=== PATIENT | male | born 1930 | race African-American/Black ===

== ENCOUNTER 2017-01-20 14:27 | Inpatient (IN) ==
--- NOTE | 2017-01-20 15:14 | Emergency Department Note ---
Disposition Clinical Impression: Dizziness, Cardiac enzymes elevated Hypertension Qualifiers: Hypertension type: essential hypertension Qualified Code(s): I10 - Essential ( primary) hypertension Disposition: Admitted As Inpatient Condition: Fair Referrals: NO,PCP [Non-Partnered Physician] - Forms: ED Satisfaction Letter Time of Disposition: 15:32 Recheck wound or abnormal lab - General Chief Complaint: ED Recheck/Abnormal Lab/Rx Stated Complaint: Elevated trop Time Seen by Provider: 01/20/17 14:29 Source: patient, EMS Limitations: no limitations Nursing Notes Reviewed: Yes Vital Signs Reviewed: Yes - History of Present Illness HPI Narrative: 86-year-old who got dizzy and fell yesterday was seen at the [place] urgent care today and that during the workup was found to have an elevated troponin. Patient denies any chest pain today as had not had any chest pain recently. Has had some dizziness today and his blood pressure has been running high. - Related Data Allergies Allergy/AdvReac Type Severity Reaction Status Date / Time No Known Allergies Allergy Verified 03/26/15 12:25 All systems ED: reviewed and negative except as stated. Constitutional: Denies: fever, chills, weakness, weight change Eyes: Denies: eye pain, eye discharge, vision change ENT ED: Denies: ear pain, throat pain, dental pain, hearing loss, epistaxis, congestion, dysphagia Cardiovascular: Denies: chest pain, palpitations, dyspnea on exertion, edema, syncope Respiratory: Denies: cough, dyspnea, wheezes, hemoptysis, stridor Gastrointestinal: Denies: abdominal pain, nausea, vomiting, diarrhea, constipation, hematemesis, melena, hematochezia Genitourinary: Denies: urgency, dysuria, frequency, hematuria Musculoskeletal: Denies: back pain, neck pain, arthralgia, myalgia Integumentary: Denies: rash, abrasion, lesions Neurological: Reports: other (Dizziness lightheadedness). Denies: headache, weakness, numbness, paresthesias, confusion, abnormal gait, vertigo Psychiatric: Denies: anxiety, depression, suicidal thoughts, homicidal thoughts , auditory hallucinations, visual hallucinations Endocrine: Denies: fatigue Hematological/Lymphatic: Denies: easy bleeding, easy bruising Allergic/Immunologic: Denies: facial swelling, urticaria Past Medical History - Past Medical History Medical history: Reports: coronary artery disease, diabetes, GERD, hypertension Surgical history: Reports: orthopedic, other Psychiatric history: Reports: no psych history - Social History Smoking Status: Former smoker Smokeless Tobacco Status: No Alcohol use: Reports: none Drug use: Reports: none Physical Exam - General Limitations: no limitations General appearance: alert - Head Head exam: atraumatic, normocephalic, normal inspection - Eye Eye exam: Present: normal appearance, PERRL, EOMI - ENT ENT exam: normal exam, normal oropharynx, mucous membranes moist - Neck Neck exam: Present: normal inspection, full ROM, trachea midline - Chest Chest inspection: Present: normal inspection, symmetric chest wall rise - Respiratory Respiratory exam: Present: normal lung sounds bilaterally - Cardiovascular Cardiovascular exam: Present: regular rate, normal rhythm, normal heart sounds - Abdominal Exam Abdominal exam: Present: soft, Non-Tender. Absent: tenderness, distention, guarding, rebound, rigidity - Extremities Exam Extremities exam: Present: normal inspection, full ROM. Absent: tenderness, pedal edema - Expanded Lower Extremity Exam Neurovascular/Tendon exam: Absent: motor deficit, sensory deficit, tendon deficit - Back Exam Back exam: Present: normal inspection, full ROM. Absent: tenderness - Neurological Exam Neurological exam: Present: alert, oriented X3 - Psychiatric Psychiatric exam: Present: normal affect, normal mood - Skin Skin exam: Present: warm, dry, intact, normal color Course - Reevaluation(s) Reevaluation #1: [facility] a [facility] UA recasted was 0.3. Is elevated 0.088 CK was 119 is normal. Calcium is 8.7 sodium 142 potassium is 4.5 chloride 110 carbon dioxide 23 glucose 124 creatinine was 1.04 with a GFR greater than 60 white count was 6 for H&H of 13 and 1 and 39.3 platelets were 112,000 Time: 15:15 - Consultations Consultation #1: Discussed with , would admitted to the [facility] troponins would not heparinize at this time. Time: 15:15 Consultation #2: Discussed with , admit. Time: 15:31 Vital Signs Temperature 97.3 F L 01/20/17 14:29 Pulse Rate 84 01/20/17 14:29 Respiratory Rate 16 01/20/17 14:29 Blood Pressure 156/111 01/20/17 14:29 O2 Sat by Pulse Oximetry 99 01/20/17 14:29 Temperature 97.3 F L 01/20/17 14:29 Pulse Rate 84 01/20/17 14:29 Respiratory Rate 16 01/20/17 14:29 Blood Pressure 156/111 01/20/17 14:29 O2 Sat by Pulse Oximetry 99 01/20/17 14:29 Oxygen Delivery Oxygen Delivery Room Air
[2017-01-20] MEDS ORDERED: Naloxone 0.4 MG/ML INJ IVP PRN (19:14)
[2017-01-20] MEDS ORDERED: Acetaminophen 325 MG TABLET PO PRN (19:14)
[2017-01-20] MEDS ORDERED: *HR* HYDROcodone/Acet 5/325 mg TABLET PO PRN (19:14)
[2017-01-20] MEDS ORDERED: Ondansetron 4 MG/2 ML VIAL IVP PRN (19:14)
[2017-01-20] MEDS ORDERED: *HR* Morphine 2 MG/ML SYRINGE IVP PRN (19:14)
--- NOTE | 2017-01-20 19:45 | Event Note ---
Date of Encounter: 01/20/17 Time of Encounter: 18:30 I saw and examined pt. I have discussed with JACK MACHINE OPERATOR regarding the management plan. Pt has dizziness and near syncope yesterday. Has elevated BP higher than usual. EKG shows new A Fib (onset time unknown, not on EKG in 2009). HR increased ( baseline arround 50, now 90). Pt denies CP or SOB. Will cont home med, increase carvedilol to 12.5mg po bid. 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 Pt has no Hx of TIA/CVA, no Hx of CHF, borderline DM not on med. Will cont aspirin po now, computer terminal operator anticoagulation will follow cardio recommendation. Will order Echo and duplex carotid. Check TSH, Mg in AM.
--- NOTE | 2017-01-20 20:10 | Internal Med History&Physical ---
<Hasmukh Gonzalez - Last Filed: 01/20/17 20:37> Date of Encounter: 01/20/17 Time of Encounter: 18:30 Assessment and Plan (1) Elevated troponin Current visit: Yes Status: Acute Patient presents from the [place] today with elevated troponin of 0.088. Patient states that he has been having hypertension for the past several days and his medication is not helping to control it. Patient denies chest pain or pressure, but does report dizziness and falls without syncope. Patient to be placed on continuous cardiac telemetry with supplemental O2 and continuous SpO2 monitoring , trending troponins x2, EV echocardiogram, bilateral carotid Doppler duplex imaging, and cardiology consult which was placed in the ED. Patient will be placed as falls precautions/up with assist/bed rest with bathroom privileges with assist only due to current SOB and dizziness. Will consider possible nuclear pharm stress test based on echocardiogram results. Patient to be monitored closely. (2) Dizziness Current visit: Yes Status: Acute Patient presents with acute dizziness and history of falls. Patient reports falling two times yesterday without losing consciousness or hitting his head. He states the dizziness lasts for approximately 30 seconds or less. Orthostatic BP and vital signs ordered. Bilateral carotid Doppler duplex imaging ordered to assess for possible blockages. Patient placed as falls precautions/up with assist/bed rest with bathroom privileges with assist only due to dizziness and SOB. (3) Hypertension Current visit: Yes Status: Acute Patient presents with chronic hypertension with current acute HTN readings. Will monitor patient and vital signs. Will continue patient's Coreeg but increase dosing to 12.5 mg BID to decrease current hypertension. Will monitor patient and adjust dosing accordingly. Qualifiers: Hypertension type: essential hypertension Qualified Code(s): I10 - Essential (primary) hypertension (4) SOB (shortness of breath) Current visit: Yes Status: Acute Patient reports some SOB with current hypertension and dizziness. Patient placed on supplemental O2 with titration if SpO2 < 92% and continuous SpO2 monitoring. DuoNebs Q6 ordered PRN. (5) GERD (gastroesophageal reflux disease) Current visit: Yes Status: Chronic Patient presents with history of GERD. Will administer IVP Protonix 40 mg daily. Qualifiers: Esophagitis presence: esophagitis presence not specified Qualified Code(s) : K21.9 - Gastro-esophageal reflux disease without esophagitis (6) Diabetes Current visit: Yes Status: Chronic Patient reports history of diabetes but states that he currently does not take insulin or any oral hyperglycemics. Will take random blood glucose readings to assess for the need for possible low dose correction insulin sliding scale and hypoglycemia protocol. Qualifiers: Diabetes mellitus type: type 2 Diabetes mellitus complication status: without complication Diabetes mellitus medical terminologist insulin use: without jail use Qualified Code(s): E11.9 - Type 2 diabetes mellitus without complications (7) DVT prophylaxis Current visit: Yes Status: Acute Patient to be placed on DVT prophylaxis due to current admission protocol and bed rest status. Heparin 5,000 units SQ Q8 ordered. Internal Medicine - H&P: HPI Chief complaint: Dizzy spells, HTN Admitted From: Emergency Dept Plans for Post Hospital Care: Home History of present illness: Mr. Drew is a 86 year old male who presents from the ED with chief complaint of dizziness and hypertension. Patient reports he fell two times yesterday morning without warning but denies losing consciousness. He states his dizzy spells last approximately 30 seconds or less. Patient was seen at the [place] today and his labs showed an elevated troponin. Patient denies any chest pain or pressure but does report some SOB. He states that his BP has been running high for the past several days. Urinalysis at the [place] was negative, platelets were 112 ,000, Hgb was 13 and Hct 39.3, with troponin at 0.088. Patient has a medical history of coronary artery disease, diabetes, GERD, hypertension, and diverticulosis. Patient reports previous heart catheterizations with placement of 3 stents. Patient currently sees Dr. Diaz and reports last appointment was a few months ago. Patient is at moderate risk for cardiac event based on history and current symptoms and will be placed as inpatient with orders for continuous cardiac telemetry, supplemental O2 titration if SPO2 less than 92%, continuous SPO2 monitoring, troponins to be trended 2, orthostatic BP and vital signs, orders for echocardiogram and bilateral carotid duplex imaging, and safety precautions to include falls precautions/up with assist/bed rest with bathroom privileges with assist only. Cardiology consult ordered and placed in the ED. Patient to be monitored closely for signs of increasing cardiac and/or respiratory distress. Time spent with patient > 40 minutes. Past Med Surg Social Fam HX - Past Medical History Source: patient Medical history: coronary artery disease, diabetes, GERD, hypertension, other ( Diverticulosis) Psychiatric history: no psych history - Past Surgical History Surgical History: angioplasty/stent (x3), cataract (Bilateral), orthopedic, other (Bilateral knee replacements, neck/spine surgery) - Social History Smoking Status: Former smoker Smokeless Tobacco Status: No Alcohol use: none Drug use: none Occupational status: previously employed Current living situation: Home, With Family Activity Level: Independent ambulation, Very active Recent Out of Country Travel Within the Last 8 Weeks: No Exposure or Possible Exposure to Illness During Travel: No - Family History Mother Living Status: Hx Family Cardiac Disorders: No Hx Family Respiratory Disorders: No Hx Family Cancer: Yes Hx Family GI Disorders: No Hx Family Genitourinary Disorders: No Hx Family Endocrine Disorder: No Hx Family Musculoskeletal Disorders: No Hx Family Neuromuscular Disorders: No Hx Family Neurologic Disorders: No Hx Family HEENT Disorders: No Hx Family Autoimmune Disorders: No Hx Family Reproductive Disorders: No Hx Family Psychosocial Disorders: No Hx Family Medical Disorders: No Internal Medicine - H&P: Meds Alfuzosin HCl [Uroxatral] 10 mg PO DAILY 01/20/17 [History] Allopurinol [Zyloprim 300 MG] 300 mg PO DAILY 01/20/17 [History] Aspirin 81 mg PO DAILY 01/20/17 [History] Carvedilol [Coreg] 6.25 mg PO BIDWM 01/20/17 [History] Ferrous Sulfate 325 mg PO DAILY 01/20/17 [History] Finasteride [Proscar] 5 mg PO DAILY 01/20/17 [History] Gabapentin [Neurontin] 300 mg PO HS 01/20/17 [History] Lisinopril [Zestril] 20 mg PO BID 01/20/17 [History] Multivitamin [Multi-Day Vitamins] 1 each PO DAILY 01/20/17 [History] Simvastatin [Zocor] 20 mg PO HS 01/20/17 [History] Allergies No Known Allergies Allergy (Verified 03/26/15 12:25) All Systems PM: A 10-system review of systems was performed and is negative for pertinent findings except as documented above in the HPI. - Constitutional Constitutional: as per HPI, falls, no chills, no fever(s), no night sweats - EENT Eyes: no change in vision, no discharge, no pain, no photophobia Ears: no ear discharge, no ear pain, no tinnitus Nose, mouth and throat: no dysphagia, no nasal discharge, no neck pain, no sore throat - Breasts Breasts: as per HPI - Cardiovascular Cardiovascular ROS IM: as per HPI, dyspnea - Respiratory Respiratory: as per HPI, dyspnea, no cough, no wheezing, no excessive phlegm production - Gastrointestinal Gastrointestinal: no abdominal pain, no diarrhea, no hematemesis, no hematochezia, no melena, no nausea, no vomiting - Genitourinary Genitourinary ROS male: as per HPI - Musculoskeletal Musculoskeletal ROS IM: no numbness, no tingling - Integumentary Integumentary IM: no rash, no unusual bruising - Neurological Neurological ROS: as per HPI, dizziness, frequent falls, no confusion, no convulsions, no focal weakness, no numbness, no tingling, no tremor(s) - Psychiatric Psychiatric: as per HPI - Endocrine Endocrine IM: as per HPI - Hematologic/Lymphatic Hematologic/Lymphatic: no easy bruising - Allergic/Immunologic Allergic/Immunologic: as per HPI - Constitutional Vitals: Temp Pulse Resp BP Pulse Ox 97.7 F 92 18 166/101 95 01/20/17 18:58 01/20/17 18:58 01/20/17 18:58 01/20/17 18:58 01/20/17 18:58 General appearance: Present: cooperative, A&O X 3, pleasant, no acute distress, obese, answers questions appropriately - Head Head exam: Present: atraumatic, normocephalic - Eye Eye exam: Present: PERRL, conjuntiva pink, sclera anicteric Pupils: Present: PERRL - ENT ENT exam: Present: normal exam, normal external ear exam - Neck Neck exam general surgery: Present: supple, trachea midline. Absent: lymphadenopathy - Respiratory Respiratory exam: Present: CTAB. Absent: accessory muscle use, rales, rhonchi, wheezes - Cardiovascular Cardiovascular exam: Present: RRR, +S1, +S2. Absent: diastolic murmur, gallop, rubs, systolic murmur - GI/Abdominal GI/Abdominal exam: Present: normal bowel sounds, soft, no peritoneal signs. Absent: distended, tenderness - Rectal Rectal exam: Present: deferred - Additional comments: exam deferred. - Extremities Exam Extremities exam: Present: warm, radial pulses palpable and symetrical. Absent : calf tenderness, cyanotic, pedal edema - Back Exam Back exam: Present: normal inspection - Neurological Exam Neurological exam: Present: CN II-XII intact, oriented X3, no focal deficits. Absent: pronater drift, facial droop, speech deficit - Psychiatric Psychiatric exam: Present: normal affect, normal mood - Skin Skin exam: Present: dry, intact <Nelson Saunders - Last Filed: 01/21/17 07:10> Date of Encounter: 01/21/17 Internal Medicine - H&P: HPI History of present illness: Mr. Drew is a 86 year old male All Systems PM: A 10-system review of systems was performed and is negative for pertinent findings except as documented above in the HPI. - Constitutional Vitals: Temp Pulse Resp BP Pulse Ox 97.8 F 85 18 136/84 95 01/21/17 03:12 01/21/17 03:12 01/21/17 03:12 01/21/17 03:20 01/21/17 03:12 Internal Med - H&P Results - Labs CBC & Chem 7: 01/20/17 19:58 01/20/17 19:58 Labs: Short CBC 01/20/17 Range/Units 19:58 WBC 7.6 (4.3-11.1) K/mcL Hgb 13.5 (12.9-16.9) g/dL Hct 40.4 (37.5-50.1) % Plt Count 100 L (140-400) K/mcL Neutrophils # 4.0 (1.6-8.9) K/mcL BMP 01/20/17 19:58 Sodium 139 Potassium 4.2 Chloride 108 Carbon Dioxide 22 BUN 13 Creatinine 1.00 Glucose 162 H Calcium 9.3 Cardiac Enzymes 01/20/17 01/21/17 Range/Units 22:41 04:15 Troponin I 0.12 H* 0.14 H* (0-0.03) ng/mL - Attending Attestation I saw and examined pt, discussed with CORRESPONDENCE CLERK regarding management. Agree with the documentation.
[2017-01-20] MEDS ORDERED: Ipratropium/Albuterol Neb 3 ML IH PRN (20:36)
[2017-01-20] MEDS: Gabapentin 300 MG CAPSULE PO SCH (20:45)
[2017-01-20] MEDS: Lisinopril 20 MG TABLET PO SCH (20:45)
[2017-01-20] MEDS: *HR* Heparin 5,000 UNIT/ML VIAL SQ SCH (20:45)
[2017-01-20 20:51] LABS: Basophils % 0.8 %; Hematocrit 40.4 % (37.5-50.1); Red Cell Distribution Width 14.5 % (11.5-14.5)
[2017-01-20 20:52] LABS: Basophils # 0.1 K/mcL (0.0-0.2); Eosinophils # 0.2 K/mcL (0.0-0.6); Hemoglobin 13.5 g/dL (12.9-16.9); Immature Granulocytes % 0.3 % (0-4); Immature Platelets 13.7 % (1.1-6.1); Lymphocytes # 2.6 K/mcL (0.6-4.6); Lymphocytes % 34.1 %; Mean Corpuscular HGB Conc 33.4 g/dL (31.6-35.5); Mean Corpuscular Hemoglobin 32.1 pg (28.0-33.3); Mean Corpuscular Volume 96.2 fL (83.0-100.0); Mean Platelet Volume 13.6 fL (9.4-12.4); Monocytes # 0.7 K/mcL (0.0-1.3); Monocytes % 8.7 %; Platelet Count 100 K/mcL (140-400); Segmented Neutrophils % 53.1 %
[2017-01-20 20:58] LABS: INR 1.1; Prothrombin Time 11.4 Seconds (9.4-12.1)
[2017-01-20 21:01] LABS: Activated Partial Thrombo Time 27.1 Seconds (26.0-36.0)
[2017-01-20 21:03] LABS: BUN/Creatinine Ratio 13 (6-26); Blood Urea Nitrogen 13 mg/dL (8-26); Calcium 9.3 mg/dL (8.6-10.8); Carbon Dioxide 22 mEq/L (19-29); Chloride 108 mEq/L (98-109); Glucose 162 mg/dL (70-99); Osmolality,Calculated 292 (280-300); Potassium 4.2 mEq/L (3.5-4.5); Sodium 139 mEq/L (136-145); eGFR For African Americans > 60 (> 60); eGFR For Non-African Americans > 60 (> 60)
[2017-01-20 21:05] LABS: Chol/HDL Ratio 2.2 (0-4.9); Magnesium 1.4 mg/dL (1.6-2.6)
[2017-01-20 21:07] LABS: Platelet Estimate Decreased (Normal)
[2017-01-20 21:08] LABS: Reactive Lymphocytes Present (Not Present)
[2017-01-20] MEDS ORDERED: Magnesium Sulfate 2 GM in D5% in Water 100 ML IVPB ONE (23:56)
[2017-01-21] MEDS: *HR* Heparin 5,000 UNIT/ML VIAL SQ SCH ×2 (05:20→17:11)
[2017-01-21] MEDS: Aspirin 81 MG TAB.CHEW PO SCH (09:05)
[2017-01-21] MEDS: Lisinopril 20 MG TABLET PO SCH ×2 (09:05→20:36)
[2017-01-21] MEDS: Finasteride 5 MG TABLET PO SCH (09:05)
[2017-01-21] MEDS: Multivit/Ca/Min/Fe/FA 1 TAB TABLET PO SCH (09:05)
[2017-01-21] MEDS: Pantoprazole 40 MG VIAL IVP SCH (09:11)
--- NOTE | 2017-01-21 11:31 | Cardiology Consult Note ---
Date of Encounter: 01/21/17 Time of Encounter: 10:30 Assessment and Plan (1) Fall Current Visit: Yes Status: Acute Per cardiology: -Patient fell at home during dizzy episode. -Patient had history of dizziness, however states he has never fallen previously because of dizziness -Patient reports 3 falls in the past 6 months, unrelated to dizziness. -Management per primary service. Qualifiers: Encounter type: initial encounter Qualified Code(s): W19.XXXA - Unspecified fall, initial encounter (2) Cardiomyopathy Current Visit: Yes Status: Acute Per cardiology: -Echo 01/20/17 with LVEF 25-30%, global LV hypokinesis, mild concentric left ventricular hypertrophy, dilated RV with moderate RV hypokinesis, severely dilated left atrium, severely dilated right atrium, mild AR, mild MR, mild pulmonary hypertension, all hartman were hypokinetic. -Echo 2013 with LVEF 60%, mild As, mild AR, mild MR, mild diastolic dysfunction. -Known history of CAD. -On beta joseph and julia inhibitor. -Euvolemic on exam. -Will need LHC. Can be set up as outpatient. Qualifiers: Cardiomyopathy type: unspecified Qualified Code(s): I42.9 - Cardiomyopathy , unspecified (3) Atrial fibrillation Current Visit: Yes Status: Acute Per cardiology: -No previous history of atrial fibrillation. -Per review of telemetry, average HR 79. Intermittent atrial fibrillation with sinus rhythm. -On asa. -Chads 2vasc score 5 (age, HTN, vascular disease, DM). ON asa. Patient with frequent falls. Not a good candidate for anticoagulation. Patient and family aware of increased risk of stroke. -On beta joseph. Hr controlled. -Will re-assess anticoagulation in outpatient setting due to frequent falls and need for upcoming LHC. Qualifiers: Atrial fibrillation type: unspecified Qualified Code(s): I48.91 - Unspecified atrial fibrillation (4) CAD (coronary artery disease) Current Visit: Yes Status: Acute Per cardiology: -Known CAD with Last cath 2009 with 2 KIESHA to RCA. -Echo as above. -ECG with no ischemic changes. -Denies chest pain. Unable to remember his symptoms prior to needing stenting before. -Denies shortness of breath or fatigue. -Will need LHC.Can be set up as outpatient. Qualifiers: Coronary Disease-Associated Artery/Lesion type: [place] artery [place] vs. transplanted heart: [place] heart Associated angina: without angina Qualified Code(s): I25.10 - Atherosclerotic heart disease of [place] coronary artery without angina pectoris (5) Elevated troponin Current Visit: Yes Status: Acute Per cardiology: -[facility] noted to be 0.14, 0.19. -Denies chest pain. -ECG with no ischemic changes. -Echo as above with new cardiomyopathy noted. -Will need C. Discussion w patient/family: The assessment and plan as outlined above was discussed with the patient and/or family members who expressed understanding and agreement. All questions were answered. Thank you for involving us in the care of your patient. Please call with any questions. Discussed and reviewed with . History of Present Illness Consult date: 01/20/17 Requesting physician: Scar English Consult reason: elevated troponin Chief complaint: fall History of present illness: Mr. Drew is a 86 year old male with a relevant past medical history of CAD s/p 3 stents, DM, HTN, hyperlipidemia. Patient states he was at home in his garage cooking dinner when he became extremely dizzy and fell. Patient reports he has had dizzy episodes before and is on antivert for dizziness, however patient states he has never fallen previously due to dizziness. Patient reports in jay jay past 6 months he has fallen 3 times due to mechanical issues. Patient denies chest pain, shortness of breath, or increased fatigue. Past Med Surg Social Fam HX - Past Medical History Attestation: Yes The following information was validated with the patient. Source: patient, old records reviewed, obtained from family Medical history: coronary artery disease, diabetes, GERD, hypertension, other ( Diverticulosis) Psychiatric history: no psych history - Past Surgical History Surgical History: angioplasty/stent (x3), cataract (Bilateral), orthopedic, other (Bilateral knee replacements, neck/spine surgery) - Social History Smoking Status: Former smoker Smokeless Tobacco Status: No Alcohol use: none Drug use: none - Family History Mother Living Status: Hx Family Cardiac Disorders: No Hx Family Respiratory Disorders: No Hx Family Cancer: Yes Hx Family GI Disorders: No Hx Family Genitourinary Disorders: No Hx Family Endocrine Disorder: No Hx Family Musculoskeletal Disorders: No Hx Family Neuromuscular Disorders: No Hx Family Neurologic Disorders: No Hx Family HEENT Disorders: No Hx Family Autoimmune Disorders: No Hx Family Reproductive Disorders: No Hx Family Psychosocial Disorders: No Hx Family Medical Disorders: No Medications and Allergies Alfuzosin HCl [Uroxatral] 10 mg PO DAILY 01/20/17 [History] Allopurinol [Zyloprim 300 MG] 300 mg PO DAILY 01/20/17 [History] Aspirin 81 mg PO DAILY 01/20/17 [History] Carvedilol [Coreg] 6.25 mg PO BIDWM 01/20/17 [History] Ferrous Sulfate 325 mg PO DAILY 01/20/17 [History] Finasteride [Proscar] 5 mg PO DAILY 01/20/17 [History] Gabapentin [Neurontin] 300 mg PO HS 01/20/17 [History] Lisinopril [Zestril] 20 mg PO BID 01/20/17 [History] Multivitamin [Multi-Day Vitamins] 1 each PO DAILY 01/20/17 [History] Simvastatin [Zocor] 20 mg PO HS 01/20/17 [History] Allergies No Known Allergies Allergy (Verified 03/26/15 12:25) All Systems Review: A 10-system review of systems was performed and is negative for pertinent findings except as documented above in the HPI. - Constitutional Constitutional: frequent falls - Cardiovascular Cardiovascular: as per HPI - Neurological Neurological: dizziness Physical Examination Vital Signs, Last 4 Hours Temp Pulse Resp BP Pulse Ox 01/21/17 11:10 97.7 F 59 16 136/88 97 General: Conversant, No Apparent Distress HEENT: Atraumatic, Normocephaly, Mucus Membranes Moist Neck: No JVD, Normal carotid pulses Cardiac: Other (Irregularly, irregular. ) Lungs: Normal Breath Sounds, No Wheeze, Rales, Rhonchi Neuro: Alert and responsive, No focal deficits noted Abdomen: Soft, Non-Tender Skin: No rashes noted on visualized skin Musculoskeletal: No Chest Wall Tenderness Extremities: No Clubbing, No Cyanosis, No Edema, Normal Pulses Results 01/20/17 19:58 01/20/17 19:58 Lab Results Active Medications Acetaminophen (Tylenol) 650 mg PO Q6HR PRN PRN Reason: Mild Pain (1-3) Stop: 07/22/17 19:15 Hydrocodone Bitart/Acetaminophen ([place] 5-325 Mg) 1 tab PO Q4HR PRN PRN Reason: Moderate Pain (4-6) Stop: 07/22/17 19:15 Albuterol/Ipratropium (Duoneb) 3 ml IH [id number] PRN; Protocol PRN Reason: Shortness Of Breath/Wheezing Stop: 07/22/17 20:37 Aspirin (Aspirin) 81 mg PO DAILY [facility] Stop: 07/23/17 09:01 Last Admin: 01/21/17 09:05 Dose: 81 mg Carvedilol (Coreg) 12.5 mg PO BIDWM NEETU PRN Reason: Protocol Stop: 07/23/17 08:01 Last Admin: 01/21/17 09:05 Dose: 12.5 mg Ferrous Sulfate (Ferrous Sulfate) 325 mg PO DAILY [facility] Stop: 07/23/17 09:01 Last Admin: 01/21/17 09:05 Dose: 325 mg Finasteride (Proscar) 5 mg PO DAILY [facility] PRN Reason: Protocol Stop: 07/23/17 09:01 Last Admin: 01/21/17 09:05 Dose: 5 mg Gabapentin (Neurontin) 300 mg PO HS [facility] Stop: 07/22/17 21:01 Last Admin: 01/20/17 20:45 Dose: 300 mg Heparin Sodium (Porcine) (Heparin) 5,000 unit SQ Q12HCO [facility] Stop: 07/22/17 19:16 Last Admin: 01/21/17 05:20 Dose: 5,000 unit Lisinopril (Zestril) 20 mg PO BID [facility] PRN Reason: Protocol Stop: 07/22/17 21:01 Last Admin: 01/21/17 09:05 Dose: 20 mg Morphine Sulfate (Morphine Sulfate) 2 mg IVP Q4HR PRN PRN Reason: Severe Pain (7-10) Stop: 07/22/17 19:15 Multivitamins/Calcium (Thera M Plus) 1 tab PO DAILY [facility] Stop: 07/23/17 09:01 Last Admin: 01/21/17 09:05 Dose: 1 tab Naloxone HCl (Narcan) 0.4 mg IVP Q2MIN PRN PRN Reason: Opioid Reversal Stop: 07/22/17 19:15 Ondansetron HCl (Zofran) 4 mg IVP Q8HR PRN PRN Reason: Nausea And Vomiting Stop: 07/22/17 19:15 Pantoprazole Sodium (Protonix) 40 mg IVP DAILY [facility] Stop: 07/23/17 09:01 Last Admin: 01/21/17 09:11 Dose: 40 mg Simvastatin (Zocor) 20 mg PO HS NEETU PRN Reason: Protocol Stop: 07/22/17 21:01 Last Admin: 01/20/17 20:45 Dose: 20 mg Laboratory Tests 01/20/17 01/20/17 01/20/17 19:58 19:58 19:58 Hgb 13.5 Potassium 4.2 Creatinine 1.00 Magnesium 1.4 L Troponin I Triglycerides 106 Cholesterol 130 LDL Cholesterol, Calc 50 HDL Cholesterol 59 TSH 01/20/17 01/21/17 01/21/17 22:41 04:15 04:15 Hgb Potassium Creatinine Magnesium Troponin I 0.12 H* 0.14 H* Triglycerides Cholesterol LDL Cholesterol, Calc HDL Cholesterol TSH 2.083 - Imaging and Cardiology Stress Test: report reviewed Echo: report reviewed - EKG Interpretation EKG results cardiology: personally reviewed ([facility], [facility] 59.), other (Telemetry reviewed with average HR 79, sinus rhythm with intermittent periods of atrial fibrillation. Longest pause 1.7 seconds. PVCs, couplets, 1 5 beat run of non-sustained ventricular tachycardia.) Consult Discharge Plan - Plan Referrals: [facility] [Primary Care Provider] -
--- NOTE | 2017-01-21 17:27 | Internal Med Progress Note ---
Date of Encounter: 01/21/17 Time of Encounter: 13:30 - Assessment and plan (1) Dizziness Current Visit: Yes Status: Acute Assessment and plan: persistent dizziness and shortness of breath on exertion. (2) Cardiomyopathy Current Visit: Yes Status: Acute Assessment and plan: New diagnosis systolic heart failure, not in exacerbation. Echocardiogram revealed severe LV systolic dysfunction, LVEF 25-30%, global LV hypokinesis, mild concentric LVH, dilated right ventricle with moderate RV hypokinesis, severely dilated left atrium, severely dilated right atrium. Appreciate cardiology input. Patient and at bedside, he agreed to stay and undergo left heart catheterization on Monday. Continue aspirin, lisinopril and coreg. Qualifiers: Cardiomyopathy type: unspecified Qualified Code(s): I42.9 - Cardiomyopathy , unspecified (3) Atrial fibrillation Current Visit: Yes Status: Acute Assessment and plan: new onset afib. hr is adequate. continue coreg. Qualifiers: Atrial fibrillation type: unspecified Qualified Code(s): I48.91 - Unspecified atrial fibrillation (4) CAD (coronary artery disease) Current Visit: Yes Status: Acute Qualifiers: Coronary Disease-Associated Artery/Lesion type: [place] artery [place] vs. transplanted heart: [place] heart Associated angina: without angina Qualified Code(s): I25.10 - Atherosclerotic heart disease of [place] coronary artery without angina pectoris (5) Diabetes Current Visit: Yes Status: Chronic Assessment and plan: iss. diabetic diet. 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 continue lisinopril Qualifiers: Hypertension type: essential hypertension Qualified Code(s): I10 - Essential (primary) hypertension - Subjective Interval history: Patient reports dizziness and shortness of breath on exertion. - Constitutional Vitals: Temp Pulse Resp BP Pulse Ox 97.6 F 89 16 146/98 96 01/21/17 15:05 01/21/17 15:05 01/21/17 15:05 01/21/17 15:05 01/21/17 15:05 General appearance: Present: cooperative, A&O X 3, pleasant, no acute distress, obese, answers questions appropriately - Respiratory Respiratory exam: Present: CTAB - Cardiovascular Cardiovascular exam: Present: RRR - GI/Abdominal GI/Abdominal exam: Present: normal bowel sounds, soft. Absent: distended, tenderness - Extremities Exam Extremities exam: Absent: pedal edema - Back Exam Back exam: Absent: CVA tenderness (L), CVA tenderness (R) - Neurological Exam Neurological exam: Present: alert, oriented X3, no focal deficits, strengths equal and symetr throughout. Absent: facial droop, speech deficit - Skin Skin exam: Absent: rash Internal Medicine: Result - Labs CBC & Chem 7: 01/20/17 19:58 01/20/17 19:58 Labs: Short CBC 01/20/17 Range/Units 19:58 WBC 7.6 (4.3-11.1) K/mcL Hgb 13.5 (12.9-16.9) g/dL Hct 40.4 (37.5-50.1) % Plt Count 100 L (140-400) K/mcL Neutrophils # 4.0 (1.6-8.9) K/mcL BMP 01/20/17 19:58 Sodium 139 Potassium 4.2 Chloride 108 Carbon Dioxide 22 BUN 13 Creatinine 1.00 Glucose 162 H Calcium 9.3 Cardiac Enzymes 01/20/17 01/21/17 Range/Units 22:41 04:15 Troponin I 0.12 H* 0.14 H* (0-0.03) ng/mL - ABG Interpretation ABG results: PT/INR, D-dimer PT 11.4 Seconds (9.4-12.1) 01/20/17 19:58 Consult Discharge Plan - Plan [facility]errals: [facility] [Primary Care Provider] -
[2017-01-21] MEDS: Gabapentin 300 MG CAPSULE PO SCH (20:36)
[2017-01-22 05:02] LABS: Basophils # 0.1 K/mcL (0.0-0.2); Basophils % 0.7 %; Eosinophils # 0.2 K/mcL (0.0-0.6); Eosinophils % 2.6 %; Hematocrit 37.2 % (37.5-50.1); Hemoglobin 12.4 g/dL (12.9-16.9); Immature Granulocytes % 0.3 % (0-4); Lymphocytes % 26.1 %; Mean Corpuscular HGB Conc 33.3 g/dL (31.6-35.5); Mean Corpuscular Hemoglobin 32.9 pg (28.0-33.3); Mean Corpuscular Volume 98.7 fL (83.0-100.0); Mean Platelet Volume 11.4 fL (9.4-12.4); Monocytes # 0.9 K/mcL (0.0-1.3); Monocytes % 11.9 %; Neutrophils # 4.4 K/mcL (1.6-8.9); Platelet Count 112 K/mcL (140-400); Red Blood Count 3.77 M/mcL (4.19-5.50); Red Cell Distribution Width 14.5 % (11.5-14.5); Segmented Neutrophils % 58.4 %
[2017-01-22 05:31] LABS: BUN/Creatinine Ratio 17 (6-26); Blood Urea Nitrogen 17 mg/dL (8-26); Calcium 9.4 mg/dL (8.6-10.8); Carbon Dioxide 23 mEq/L (19-29); Chloride 109 mEq/L (98-109); Glucose 110 mg/dL (70-99); Magnesium 2.2 mg/dL (1.6-2.6); Osmolality,Calculated 292 (280-300); Potassium 4.2 mEq/L (3.5-4.5); Sodium 140 mEq/L (136-145); eGFR For African Americans > 60 (> 60); eGFR For Non-African Americans > 60 (> 60)
[2017-01-22] MEDS: *HR* Heparin 5,000 UNIT/ML VIAL SQ SCH ×2 (06:03→17:20)
[2017-01-22] MEDS: Aspirin 81 MG TAB.CHEW PO SCH (08:08)
[2017-01-22] MEDS: Lisinopril 20 MG TABLET PO SCH ×2 (08:08→20:20)
[2017-01-22] MEDS: Finasteride 5 MG TABLET PO SCH (08:08)
[2017-01-22] MEDS: Multivit/Ca/Min/Fe/FA 1 TAB TABLET PO SCH (08:08)
[2017-01-22] MEDS: Pantoprazole 40 MG VIAL IVP SCH (08:09)
--- NOTE | 2017-01-22 12:05 | Cardiology Progress Note ---
Date of Encounter: 01/22/17 Time of Encounter: 10:30 Assessment and Plan (1) Fall Current Visit: Yes Status: Acute Per cardiology: -Patient fell at home during dizzy episode. -Patient had history of dizziness, however states he has never fallen previously because of dizziness -Patient reports 3 falls in the past 6 months, unrelated to dizziness. -Management per primary service. Qualifiers: Encounter type: initial encounter Qualified Code(s): W19.XXXA - Unspecified fall, initial encounter (2) Cardiomyopathy Current Visit: Yes Status: Acute Per cardiology: -Echo 01/20/17 with LVEF 25-30%, global LV hypokinesis, mild concentric left ventricular hypertrophy, dilated RV with moderate RV hypokinesis, severely dilated left atrium, severely dilated right atrium, mild AR, mild MR, mild pulmonary hypertension, all hartman were hypokinetic. -Echo 2013 with LVEF 60%, mild As, mild AR, mild MR, mild diastolic dysfunction. -Known history of CAD. -On beta joseph and julia inhibitor. -Euvolemic on exam. -PLan for LHC tomorrow. -NPO after midnight. Qualifiers: Cardiomyopathy type: unspecified Qualified Code(s): I42.9 - Cardiomyopathy , unspecified (3) Atrial fibrillation Current Visit: Yes Status: Acute Per cardiology: -No previous history of atrial fibrillation. -Per review of telemetry, average HR 79. Intermittent atrial fibrillation with sinus rhythm. -On asa. -Chads 2vasc score 5 (age, HTN, vascular disease, DM). ON asa. Patient with frequent falls. Not a good candidate for anticoagulation. Patient and family aware of increased risk of stroke and agree with no anticoagulation at this time. -On beta joseph. Hr controlled. -Will re-assess anticoagulation in outpatient setting due to frequent falls and need for upcoming LHC. Qualifiers: Atrial fibrillation type: unspecified Qualified Code(s): I48.91 - Unspecified atrial fibrillation (4) CAD (coronary artery disease) Current Visit: Yes Status: Acute Per cardiology: -Known CAD with Last cath 2009 with 2 KIESHA to RCA. -Echo as above. -ECG with no ischemic changes. -Denies chest pain. Unable to remember his symptoms prior to needing stenting before. -Denies shortness of breath or fatigue. -PLan for LHC tomorrow. Qualifiers: Coronary Disease-Associated Artery/Lesion type: [place] artery [place] vs. transplanted heart: [place] heart Associated angina: without angina Qualified Code(s): I25.10 - Atherosclerotic heart disease of [place] coronary artery without angina pectoris (5) Elevated troponin Current Visit: Yes Status: Acute Per cardiology: -[facility] noted to be 0.14, 0.19. -Denies chest pain. -ECG with no ischemic changes. -Echo as above with new cardiomyopathy noted. -PLan for [facility] tomorrow. Discussion w patient/family: The assessment and plan as outlined above was discussed with the patient and/or family members who expressed understanding and agreement. All questions were answered. Thank you for involving us in the care of your patient. Please call with any questions. Discussed and reviewed with . Subjective Principal diagnosis: fall Interval history: Patient admitted after fall and noted to have elevated troponin. EF noted to be reduced. New atrial fibrillation noted. Patient states he feels ok today. Objective Vital Signs, Last 4 Hours Temp Pulse Resp BP Pulse Ox 01/22/17 11:41 97.5 F L 84 15 135/79 97 01/22/17 09:38 97.7 F 73 15 133/88 96 01/22/17 08:25 164/104 01/22/17 08:08 97.5 F L 68 14 180/128 95 General: Conversant, No Apparent Distress HEENT: Atraumatic, Normocephaly, Mucus Membranes Moist Neck: No JVD, Normal carotid pulses Cardiac: Reg Rate and Rhythm, Normal S1 and S2, No Murmur Lungs: Normal Breath Sounds, No Wheeze, Rales, Rhonchi Neuro: Alert and responsive, No focal deficits noted Abdomen: Soft, Non-Tender Skin: No rashes noted on visualized skin Musculoskeletal: No Chest Wall Tenderness Extremities: No Clubbing, No Cyanosis, No Edema, Normal Pulses Results 01/22/17 04:35 01/22/17 04:35 Lab Results Active Medications Acetaminophen (Tylenol) 650 mg PO Q6HR PRN PRN Reason: Mild Pain (1-3) Stop: 07/22/17 19:15 Hydrocodone Bitart/Acetaminophen ([place] 5-325 Mg) 1 tab PO Q4HR PRN PRN Reason: Moderate Pain (4-6) Stop: 07/22/17 19:15 Albuterol/Ipratropium (Duoneb) 3 ml IH [id number] PRN; Protocol PRN Reason: Shortness Of Breath/Wheezing Stop: 07/22/17 20:37 Aspirin (Aspirin) 81 mg PO DAILY [facility] Stop: 07/23/17 09:01 Last Admin: 01/22/17 08:08 Dose: 81 mg Carvedilol (Coreg) 12.5 mg PO BIDWM NEETU PRN Reason: Protocol Stop: 07/23/17 08:01 Last Admin: 01/22/17 08:08 Dose: 12.5 mg Ferrous Sulfate (Ferrous Sulfate) 325 mg PO DAILY [facility] Stop: 07/23/17 09:01 Last Admin: 01/22/17 08:08 Dose: 325 mg Finasteride (Proscar) 5 mg PO DAILY [facility] PRN Reason: Protocol Stop: 07/23/17 09:01 Last Admin: 01/22/17 08:08 Dose: 5 mg Gabapentin (Neurontin) 300 mg PO HS [facility] Stop: 07/22/17 21:01 Last Admin: 01/21/17 20:36 Dose: 300 mg Heparin Sodium (Porcine) (Heparin) 5,000 unit SQ Q12HCO [facility] Stop: 07/22/17 19:16 Last Admin: 01/22/17 06:03 Dose: 5,000 unit Lisinopril (Zestril) 20 mg PO BID [facility]ETU PRN Reason: Protocol Stop: 07/22/17 21:01 Last Admin: 01/22/17 08:08 Dose: 20 mg Morphine Sulfate (Morphine Sulfate) 2 mg IVP Q4HR PRN PRN Reason: Severe Pain (7-10) Stop: 07/22/17 19:15 Multivitamins/Calcium (Thera M Plus) 1 tab PO DAILY [facility] Stop: 07/23/17 09:01 Last Admin: 01/22/17 08:08 Dose: 1 tab Naloxone HCl (Narcan) 0.4 mg IVP Q2MIN PRN PRN Reason: Opioid Reversal Stop: 07/22/17 19:15 Ondansetron HCl (Zofran) 4 mg IVP Q8HR PRN PRN Reason: Nausea And Vomiting Stop: 07/22/17 19:15 Pantoprazole Sodium (Protonix) 40 mg IVP DAILY [facility] Stop: 07/23/17 09:01 Last Admin: 01/22/17 08:09 Dose: 40 mg Simvastatin (Zocor) 20 mg PO HS [facility]ETU PRN Reason: Protocol Stop: 07/22/17 21:01 Last Admin: 01/21/17 20:36 Dose: 20 mg Laboratory Tests 01/20/17 01/21/17 01/21/17 22:41 04:15 04:15 Hgb Potassium Creatinine Magnesium Troponin I 0.12 H* 0.14 H* TSH 2.083 01/22/17 01/22/17 04:35 04:35 Hgb 12.4 L Potassium 4.2 Creatinine 0.98 Magnesium 2.2 Troponin I TSH - Imaging and Cardiology Chest Xray: report reviewed Echo: report reviewed - EKG Interpretation EKG results cardiology: other (Telemetry reviewed with average HR 72, atrial fibrillation. Longest pause 2 seconds. PVCs, couplets, and one 4 beat run of non -sustained ventricular tachycardia noted.) Consult Discharge Plan - Plan [facility]errals: [facility] [Primary Care Provider] -
--- NOTE | 2017-01-22 17:46 | Internal Med Progress Note ---
Date of Encounter: 01/22/17 Time of Encounter: 12:45 - Assessment and plan (1) Dizziness Current Visit: Yes Status: Acute Assessment and plan: PAtient presented with dizziness and shortness of breath on exertion. improved. (2) Cardiomyopathy Current Visit: Yes Status: Acute Assessment and plan: New diagnosis systolic heart failure, not in exacerbation. Echocardiogram revealed severe LV systolic dysfunction, LVEF 25-30%, global LV hypokinesis, mild concentric LVH, dilated right ventricle with moderate RV hypokinesis, severely dilated left atrium, severely dilated right atrium. Appreciate cardiology input. PLAN for left heart catheterization tomorrow. Continue aspirin, lisinopril and coreg. Qualifiers: Cardiomyopathy type: unspecified Qualified Code(s): I42.9 - Cardiomyopathy , unspecified (3) Atrial fibrillation Current Visit: Yes Status: Acute Assessment and plan: new onset afib. hr is adequate. continue coreg. Qualifiers: Atrial fibrillation type: unspecified Qualified Code(s): I48.91 - Unspecified atrial fibrillation (4) CAD (coronary artery disease) Current Visit: Yes Status: Acute Qualifiers: Coronary Disease-Associated Artery/Lesion type: [place] artery [place] vs. transplanted heart: [place] heart Associated angina: without angina Qualified Code(s): I25.10 - Atherosclerotic heart disease of [place] coronary artery without angina pectoris (5) Diabetes Current Visit: Yes Status: Chronic Assessment and plan: glucose levels are adequate. continune iss. diabetic diet. 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 continue lisinopril Qualifiers: Hypertension type: essential hypertension Qualified Code(s): I10 - Essential (primary) hypertension - Subjective Interval history: Patient denies any chest pain or shortness of breath. - Constitutional Vitals: Temp Pulse Resp BP Pulse Ox 97.5 F L 76 15 153/91 96 01/22/17 15:45 01/22/17 15:45 01/22/17 15:45 01/22/17 15:45 01/22/17 15:45 General appearance: Present: cooperative, A&O X 3, pleasant, no acute distress, obese, answers questions appropriately - Neck Neck exam general surgery: Present: supple (eeeeeeeeeeeeeeeeeeeeeeeeeeeeeee), trachea midline. Absent: lymphadenopathy - Respiratory Respiratory exam: Present: CTAB - Cardiovascular Cardiovascular exam: Present: RRR, +S3 - GI/Abdominal GI/Abdominal exam: Absent: distended, tenderness (eeeeeeeeeeeeeeeeeeeee) - Extremities Exam Extremities exam: Absent: pedal edema (eeeeeeeeeeeee) - Back Exam Back exam: Absent: CVA tenderness (L), CVA tenderness (R) - Neurological Exam Neurological exam: Present: alert, oriented X3, no focal deficits, strengths equal and symetr throughout. Absent: facial droop, speech deficit Internal Medicine: Result - Labs CBC & Chem 7: 01/22/17 04:35 01/22/17 04:35 Labs: Short CBC 01/22/17 Range/Units 04:35 WBC 7.6 (4.3-11.1) K/mcL Hgb 12.4 L (12.9-16.9) g/dL Hct 37.2 L (37.5-50.1) % Plt Count 112 L (140-400) K/mcL Neutrophils # 4.4 (1.6-8.9) K/mcL BMP 01/22/17 04:35 Sodium 140 Potassium 4.2 Chloride 109 Carbon Dioxide 23 BUN 17 Creatinine 0.98 Glucose 110 H Calcium 9.4 - ABG Interpretation ABG results: PT/INR, D-dimer PT 11.4 Seconds (9.4-12.1) 01/20/17 19:58 Consult Discharge Plan - Plan [facility]errals: [facility] [Primary Care Provider] -
[2017-01-22] MEDS: Gabapentin 300 MG CAPSULE PO SCH (20:20)
[2017-01-23] MEDS: *HR* Heparin 5,000 UNIT/ML VIAL SQ SCH ×2 (05:49→17:29)
[2017-01-23 06:00] LABS: Basophils # 0.1 K/mcL (0.0-0.2); Basophils % 0.7 %; Eosinophils # 0.2 K/mcL (0.0-0.6); Hematocrit 36.2 % (37.5-50.1); Hemoglobin 11.9 g/dL (12.9-16.9); Immature Granulocytes % 0.4 % (0-4); Lymphocytes # 2.2 K/mcL (0.6-4.6); Lymphocytes % 29.6 %; Mean Corpuscular HGB Conc 32.9 g/dL (31.6-35.5); Mean Corpuscular Hemoglobin 32.6 pg (28.0-33.3); Mean Corpuscular Volume 99.2 fL (83.0-100.0); Mean Platelet Volume 11.9 fL (9.4-12.4); Monocytes # 0.9 K/mcL (0.0-1.3); Monocytes % 11.9 %; Platelet Count 112 K/mcL (140-400); Red Blood Count 3.65 M/mcL (4.19-5.50); Red Cell Distribution Width 14.4 % (11.5-14.5); Segmented Neutrophils % 54.4 %
[2017-01-23 06:20] LABS: BUN/Creatinine Ratio 16 (6-26); Blood Urea Nitrogen 17 mg/dL (8-26); Calcium 9.3 mg/dL (8.6-10.8); Carbon Dioxide 27 mEq/L (19-29); Chloride 109 mEq/L (98-109); Glucose 105 mg/dL (70-99); Magnesium 1.9 mg/dL (1.6-2.6); Osmolality,Calculated 294 (280-300); Potassium 4.2 mEq/L (3.5-4.5); Sodium 141 mEq/L (136-145); eGFR For African Americans > 60 (> 60); eGFR For Non-African Americans > 60 (> 60)
--- NOTE | 2017-01-23 09:10 | Event Note ---
Date of Encounter: 01/23/17 Time of Encounter: 08:00 - Cardiology Event Note Patient with new cardiomyopathy, LHC recommended. Plan for LHC today. Risk versus benefits of LHC explained to patient. Patient states understanding and agreeable for LHC. Further recommendations pending LHC.
[2017-01-23] MEDS: Aspirin 81 MG TAB.CHEW PO SCH (09:39)
[2017-01-23] MEDS: Lisinopril 20 MG TABLET PO SCH ×2 (09:39→20:43)
[2017-01-23] MEDS: Multivit/Ca/Min/Fe/FA 1 TAB TABLET PO SCH (09:40)
[2017-01-23] MEDS: Pantoprazole 40 MG VIAL IVP SCH (09:40)
[2017-01-23] MEDS: Finasteride 5 MG TABLET PO SCH (09:40)
[2017-01-23] MEDS ORDERED: *HR* FentaNYL (PF) 100 MCG/2 ML VIAL ONE (10:13)
[2017-01-23] MEDS ORDERED: 0.9 % Sodium Chloride 1,000 ML ONE ×2 (10:13→10:24)
[2017-01-23] MEDS ORDERED: Verapamil 5 MG/2 ML VIAL ONE (10:13)
[2017-01-23] MEDS ORDERED: *HR* Heparin 10,000 UNIT/10 ML VIAL ONE (10:13)
[2017-01-23] MEDS ORDERED: Heparin 1,000 UNITS/500 mL NS 500 ML ONE (10:13)
[2017-01-23] MEDS ORDERED: Nitroglycerin 1,000 MCG/10 ML VIAL IV ONE (10:14)
[2017-01-23] MEDS ORDERED: *HR* Midazolam HCl 2 MG/2 ML VIAL ONE (10:20)
--- NOTE | 2017-01-23 10:26 | Pre-Sedation Evaluation ---
Pre-sedation evaluation - Pre-sedation checklist Date of procedure: 01/23/17 Procedure: Left heart cath Recent Vitals: Last Vital Signs Temp 97.5 F L 01/23/17 07:38 Pulse 78 01/23/17 07:38 Resp 16 01/23/17 07:38 BP 153/85 01/23/17 07:38 Pulse Ox 96 01/23/17 07:38 H&P (including ROS) documented in medical record: Yes Previous reaction to sedatives/anesthetics: No Dietary Status: NPO after Midnight Dentition: No loose teeth or bridges ASA Classification *see protocol: CLASS II-Mild systemic disease Plan of Care: Pt appropriate candidate for procedure/moderate/conscious sedation , Risks/benefits of procedure/sedation discussed w/ patient/family
--- NOTE | 2017-01-23 11:54 | Invasive Diagnostic Lab Proc ---
Name: Lasha Drew Date of Study: 01/23/2017 Date: 1930 Ht: 68.1in Medical Record#: [id number] Age: 86 Wt: 189.60lb Gender: Male BSA: 2. Order #: [id number] BMI: 28.73 Physicians Procedure Physician: Alejandro Anderson MD, [facility] Referring MD: Referring MD: Staff Name Position Time In Stacey Jackson RT (R) Monitor 10:29 AM Alan Aguileraian RT (R) Scrub 10:29 AM German Gilbert RN Wire Wrapping Machine Operator 10:29 AM Magdiel Sánchez RN Wire Wrapping Machine Operator 10:29 AM Indications Indication Non-Stemi Procedures Performed Procedure L HRT ARTERY/VENTRICLE ANGIO PRQ CARDIAC ANGIOPLAST 1 ART PRQ CARDIAC ANGIOPLAST 1 ART Pre-Procedure Checklist Informed consent is complete signed and on chart. H&P is on chart. ID band is on and ID verified with patient. Patient NPO for procedure The procedure was described for the patient and questions were answered. Blood Pressure: 166/103 ECG is on chart. Rhythm: NSR Plan of Care Patient will tolerate the procedure without complications. Adequate level of comfort will be maintained. Hemodynamics will remain stable Patient will recover from procedure without complications. Respiratory function will be maintained. Cardiac rhythm will remain stable. Patient temperature will be maintained. Patient and/or family have verbalized understanding of the procedure. Patient Education Chief Complaint/Reason for Test: Cardiac Cath Developmental Category: Geriatric (65+ years) Developmentally Appropriate for Age: Yes Learning Barriers: None Education Needs: Procedure Education Method: Verbal Information Taught: Cardiac Cath Educational Evaluation: Able to repeat information Intravenous Access Time IV Size Location DC'd Fluid/Drip Rate Units RN 10:31 AM 22g 1" Patent On Arrival Lt Arm 0.9NaCl 25 ml/hr Allergies No Known Allergies NKDA NONE KNOWN NO KNOWN DRUG ALLERGIES Vital Signs Time BP (mmHg) HR (bpm) O2 Sat. RR (bpm) LOC 10:31 AM 153 / 85 78 % 16 5 = Fully awake and oriented or at pre-proc level 10:25 AM 169 / 103 73 98 % 26 10:30 AM 166 / 103 68 98 % 17 10:35 AM 159 / 96 66 98 % 15 10:40 AM 146 / 92 67 95 % 14 10:45 AM 137 / 77 73 88 % 15 10:50 AM 134 / 63 68 96 % 12 10:54 AM 131 / 85 79 96 % 12 10:59 AM 130 / 86 58 96 % 13 11:04 AM 135 / 86 70 95 % 13 11:10 AM 140 / 77 73 95 % 13 11:14 AM 117 / 88 69 95 % 14 11:19 AM 117 / 87 65 94 % 13 11:25 AM 133 / 85 67 97 % 15 11:30 AM 151 / 81 51 98 % 18 11:35 AM 144 / 93 % Procedural Medications Time Medication Dose Units Method Given By 10:31 AM Oxygen 2 L/min nasal cannula German Gilbert RN 10:31 AM Versed 2 mg Intravenous German Gilbert RN 10:31 AM Fentanyl 50 mcg Intravenous German Gilbert RN 10:39 AM Lidocaine 2% 0.5 ml Subcutaneous Alejandro Anderson MD, FAC 10:40 AM Heparin 4000 units Nitroglycerin 200 mcg Verapamil 2.5 mg Intraarterial Alejandro Anderson MD, FACC 10:43 AM Lidocaine 2% 19 ml Subcutaneous Alejandro Anderson MD, FACC 10:56 AM Heparin 4000 units Intravenous Magdiel Sánchez RN 11:04 AM Nitroglycerin 200 mcg Intracoronary Alejandro Anderson MD 11:27 AM Plavix 300 mg Orally Magdiel Sánchez RN ASA Classification: CLASS II- Mild systemic disease (i.e. well-controlled diabetes, hypertension, asthma, cigarette smoking) [place] Score Preprocedure Postprocedure Activity 2- Moves 4 extremities sustained head lift Activity 2- Moves 4 extremities sustained head lift Circulation 2- SBP +/= 20 points of pre-anesthetic level Circulation 2- SBP +/= 20 points of pre-anesthetic level Consciousness 2- Awake and alert oriented x 3 Consciousness 2- Awake and alert oriented x 3 O2 Saturation 2- Able to maintain O2 satruation of 92% on room air O2 Saturation 2- Able to maintain O2 satruation of 92% on room air Respiratory 2- Able to deep breathe and cough well Respiratory 2- Able to deep breathe and cough well Total Score 10 Total Score 10 Contrast Agent: Isovue Diagnostic Contrast: 170 ml Total Contrast: 170 ml Fluoro Dose: 1208 mGy Activated Clotting Time Time Seconds to Clot 11:34 AM 266 Procedure Log Time Note Enter By 10:24 AM CathStat 10:24 AM Vitals capture started with the following parameters, Patient=Adult, Interval=5 min, Initial Hrxhicsr=722 mmHg, Deflation Rate=5 mmHg, Cuff placed on Left Arm 10:25 AM HR=73 bpm, LSTK=022/103 mmhg, SpO2=98.0 %, Resp=26 B/min 10:28 AM Pt arrived to laboratory technical specialist 2 at 10:28 [email or web address] 10:29 AM Stacey Jackson RT (R) Position: Monitor Time in: 10: [email or web address] 10:29 AM Anthony Aguilera RT (R) Position: Scrub Time in: 10: [email or web address] 10:29 AM German Gilbert RN Position: Wire Wrapping Machine Operator Time in: 10: [email or web address] 10:29 AM Magdiel Sánchez RN Position: Wire Wrapping Machine Operator Time in: 10: [email or web address] 10:29 AM Patient charges- Angio tray pack, Navilyst 3mm J, Pulse Oximetry and ACIST tubing and transducer [email or web address] 10:29 AM Case Delayed No [email or web address] 10:29 AM Hair removed from procedure site in holding area using clippers. Right wrist prepped with Chloraprep by Stacey Jackson RT (R), safety strap applied then patient was draped. Skin intact. [email or web address] 10:30 AM HR=68 bpm, MBVZ=352/103 mmhg, SpO2=98.0 %, Resp=17 B/min 10:30 AM Hair removed from procedure site in holding area using clippers. Right groin prepped with Chloraprep by Stacey Jackson (R), safety strap applied then patient was draped. Skin intact. [email or web address] 10:30 AM Physician arrived 10:30 [email or web address] 10:30 AM ASA Class CLASS II- Mild systemic disease (i.e. well-controlled diabetes, hypertension, asthma, cigarette smoking) [email or web address] 10:30 AM Marc and anne marie completed [email or web address] 10:30 AM Sign in performed according to hospital policy. [email or web address] 10:30 AM Procedure start 10:30 [email or web address] 10:31 AM Pressure channel 1 zero failed. 10:31 AM Time: 10:31 Oxygen on at 2 L/min per nasal cannula by German Gilbert RN [email or web address] 10: AM Time: 10:31 Versed 2 mg Intravenous Given by German Gilbert RN [email or web address] 10:31 AM Time: 10:31 Fentanyl 50 mcg Intravenous Given by German Gilbert RN [email or web address] 10:32 AM Pressure channel 1 zeroed. 10:35 AM HR=66 bpm, WWFI=703/96 mmhg, SpO2=98.0 %, Resp=15 B/min 10:36 AM Recorded ECG: HR=69 Condition=Condition 1 10:39 AM Time: 10:39 0.5 ml Lidocaine 2% to right radial Subcutaneous Given by Alejandro Anderson MD, [facility] [email or web address] 10:40 AM HR=67 bpm, QYGH=756/92 mmhg, SpO2=95.0 %, Resp=14 B/min 10:40 AM Access obtained by percutaneous puncture. 6Fr 10cm Terumo Glidesheath sheath placed in right Radial artery. [id number] [email or web address] 10:40 AM Time: 10:40 Patient given 4,000 units Heparin, 200 mcg Nitroglycerin, and 2.5 mg Verapamil Intraarterial by Alejandro Anderson MD, [facility] [email or web address] 10:40 AM 0.035 260cm Navilyst 3mmJ wire [id number] [email or web address] 10:41 AM 5Fr TIG catheter inserted over the wire [facility] [email or web address] 10:43 AM Catheter removed [email or web address] 10:43 AM Wire removed [email or web address] 10:43 AM Time: 10:43 19 ml Lidocaine 2% to right groin Subcutaneous Given by Alejandro Anderson MD, [facility] [email or web address] 10:44 AM Access obtained by percutaneous puncture. 5Fr 10cm Terumo [place] sheath placed in right Femoral artery. [id number] [email or web address] 10:45 AM HR=73 bpm, GKYH=376/77 mmhg, SpO2=88.0 %, Resp=15 B/min 10:45 AM 5Fr catheter inserted over the wire [facility] [email or web address] 10:45 AM 0.035 145cm Navilyst 3mmJ wire [id number] [email or web address] 10:45 AM 5Fr FL 4 catheter inserted over the wire [facility] [email or web address] 10:46 AM Recorded Pressure: Ao, HR=73, Condition=Condition 1 (Aorta) Ao 120/64/86 10:46 AM LCA angiography performed in multiple views. [email or web address] 10:47 AM Lesion found in Proximal LAD. Pre Stenosis: 20 Pre ALVARADO Flow: [email or web address] 10:47 AM Lesion found in Distal LAD. Pre Stenosis: 90 Pre ALVARADO Flow: [email or web address] 10:47 AM Catheter removed [email or web address] 10:47 AM 5Fr FR 4 catheter inserted over the wire DN [email or web address] 10:48 AM Lesion found in Proximal Circumflex. Pre Stenosis: 90 Pre ALVARADO Flow: [email or web address] 10:48 AM RCA angiography performed in multiple views. [email or web address] 10:48 AM Recorded Pressure: Ao, HR=72, Condition=Condition 1 (Aorta) Ao 95/73/84 10:48 AM Recorded Pressure: Ao, HR=71, Condition=Condition 1 (Aorta) Ao 92/68/81 10:48 AM Coronary Dominance: right [email or web address] 10:49 AM Catheter removed [email or web address] 10:49 AM 5Fr Pigtail catheter inserted over the wire [facility] [email or web address] 10:49 AM Catheter selectively placed in left ventricle [email or web address] 10:50 AM HR=68 bpm, HNOO=020/63 mmhg, SpO2=96.0 %, Resp=12 B/min 10:50 AM Bolus angiogram of left Ventricle complete: 12 ml/sec for a total of 30 mls [email or web address] 10:51 AM Recorded Pressure: LV, HR=90, Condition=Condition 1 (Left Ventricle) LV 109/-4/-2 10:53 AM Recorded Pressure: LV, Ao, HR=74, Condition=Condition 1 (Left Ventricle) LV 111/6/31, (Aorta) Ao ?/?/? 10:53 AM Catheter removed [email or web address] 10:53 AM Sheath exchanged for a 6 Fr 11 cm Cordis Ruby sheath [id number] [email or web address] 10:54 AM .014 Follett 190cm guide wire across target lesion- successful. reused? No [email or web address] 10:54 AM Inflation device was opened. [email or web address] 10:54 AM Pressure channel 1 zero failed. 10:54 AM HR=79 bpm, XXML=606/85 mmhg, SpO2=96.0 %, Resp=12 B/min 10:55 AM 6Fr EBU 3.25 Medtronic guide catheter was used to cannulate the PCI vessel successfully. reused? No [email or web address] 10:55 AM 2.5 mm x 8 mm Emerge Monorail balloon across target lesion- successful. reused? No [email or web address] 10:57 AM Time: 10:56 Heparin 4000 units Intravenous Given by Magdiel Sánchez RN [email or web address] 10:59 AM Guide wire removed intact. [email or web address] 10:59 AM HR=58 bpm, TXJH=188/86 mmhg, SpO2=96.0 %, Resp=13 B/min 10:59 AM Recorded Pressure: Ao, HR=60, Condition=Condition 1 (Aorta) Ao 78/43/58 11:00 AM Follett wire re-inserted. [email or web address] 11:02 AM Balloon inflated @ 6 derrick for 10 seconds [email or web address] 11:03 AM Balloon inflated @ 6 derrick for 7 seconds [email or web address] 11:03 AM Balloon inflated @ 6 derrick for 10 seconds [email or web address] 11:04 AM HR=70 bpm, ZEVI=280/86 mmhg, SpO2=95.0 %, Resp=13 B/min 11:04 AM Time: 11:04 Nitroglycerin 200 mcg Intracoronary Given by Alejandro Anderson MD [email or web address] 11:05 AM Balloon catheter removed intact. [email or web address] 11:05 AM 2.5 mm x 10 mm Flextome Monorail cutting balloon across target lesion- successful. reused? No [email or web address] 11:07 AM .014 PT Graphix 182cm guide wire across target lesion- successful. reused? No [email or web address] 11:09 AM Balloon catheter removed intact. [email or web address] 11:10 AM 1.5 mm x 20 mm Emerge Monorail balloon across target lesion- successful. reused? No [email or web address] 11:10 AM HR=73 bpm, GKDM=571/77 mmhg, SpO2=95.0 %, Resp=13 B/min 11:11 AM Balloon inflated @ 14 derrick for 24 seconds [email or web address] 11:12 AM Balloon catheter removed intact. [email or web address] 11:13 AM Cutter balloon re-inserted [email or web address] 11:14 AM Balloon catheter removed intact. [email or web address] 11:14 AM HR=69 bpm, UJEW=308/88 mmhg, SpO2=95.0 %, Resp=14 B/min 11:15 AM Guide wires removed intact. [email or web address] 11:16 AM Guide catheter removed intact. [email or web address] 11:16 AM 6Fr IM catheter inserted over the wire [id number] [email or web address] 11:18 AM 3.0 mm x 20 mm Emerge Monorail balloon across target lesion- successful. reused? No [email or web address] 11:19 AM Follett wire re-inserted. [email or web address] 11:19 AM HR=65 bpm, NCTC=008/87 mmhg, SpO2=94.0 %, Resp=13 B/min 11:20 AM Balloon inflated @ 20 derrick for 16 seconds 11:21 AM Balloon inflated @ 20 derrick for 16 seconds [email or web address] 11:22 AM Recorded Pressure: Ao, HR=77, Condition=Condition 1 (Aorta) Ao 104/75/90 11:22 AM Balloon catheter removed intact. 11:22 AM 3.5 mm x 20mm NC Emerge balloon across target lesion- successful. reused? No [email or web address] 11:24 AM Balloon inflated @ 20 derrick for 20 seconds [email or web address] 11:25 AM Balloon inflated @ 20 derrick for 20 seconds [email or web address] 11:25 AM HR=67 bpm, XRRH=604/85 mmhg, SpO2=97.0 %, Resp=15 B/min 11:25 AM Balloon catheter removed intact. 11:26 AM Guide wire removed intact. 11:26 AM Guide catheter removed intact. 11:26 AM Bolus angiogram of right Femoral complete: 4 ml/sec for a total of 7 mls [email or web address] 11:28 AM Time: 11:27 Plavix 300 mg Orally Given by Magdiel Sánchez RN 3 11:29 AM [facility] 11[facility]29 [email or web address] AM Sign out completed: Radiation Dose 1208.10 mGy Fluoro Time: 13.6 Isovue 370 - 200ml contrast 170 ml given by Alejandro Anderson MD, [facility]. Complications: NoneCardiac Rehab Consult needed: YesConfirmed administered medications: No [email or web address] 11:29 AM Isovue 370 - 200ml,1 Bottle(s) used. [email or web address] 11:29 AM Sheath left in place to be pulled on floor/holding areaV+Pad [email or web address] 11:29 AM Arterial sheath pulled, Vasc Band closure device used and was Successful S/N. [email or web address] 11:29 AM 11 ml air in Vasc Band. [email or web address] 11:29 AM Post ECG NSR [email or web address] 11:30 AM Post Blood Pressure 133/85 [email or web address] 11:30 AM 11:30 Post Pulses Rt Radial 2+ [email or web address] 11:30 AM 11:30 Post Pulses Bilateral DP & PT 1+ [email or web address] 11:30 AM Information taught Cardiac Cath, PCI, and Vasc Band [email or web address] 11:30 AM HR=51 bpm, XSMI=299/81 mmhg, SpO2=98.0 %, Resp=18 B/min 11:30 AM Education needs Procedure, Plan of Care, and Disease Process [email or web address] 11:30 AM Learning barriers :None [email or web address] 11:30 AM Education Methods Verbal [email or web address] 11:30 AM Education evaluation Able to repeat information [email or web address] 11:31 AM Site status No bleeding/hematoma - Rt Groin as reported by Anthony Aguilera RT (R) at 11:31 [email or web address] 11:31 AM Opsite applied [email or web address] 11:31 AM Delay to floor No [email or web address] 11:31 AM Family placed in holding area. [email or web address] 11:32 AM Fluoro Time: 13.6 [email or web address] 11:32 AM Isovue 370 - 200ml contrast 170 ml given by Alejandro Anderson MD, [facility]. [email or web address] 11:32 AM Radiation Dose 1208.10 mGy [email or web address] 11:35 AM NHCM=828/93 mmhg 11:39 AM Report given to Monica VALENTINO Pt taken to Room #5. 11:39 [email or web address] 11:39 AM Patient out of room: 11:39 [email or web address] Complications Complication None Hemodynamics Pressures Site Systolic/A Wave Diastolic/V Wave Mean AO 120 64 86 AO 95 73 84 AO 92 68 81 LV 109 -4 -2 LV 111 6 31 AO AO 78 43 58 AO 104 75 90 Post Procedure Information Blood Pressure: 133/85 mmHg Rhythm: NSR Closure Device Time Device Success/Fail 01/23/2017 11:30:00 AM Manual Compression yes Site Checks Time Location Status Staff Sheath In? Note 11:31 AM Rt Groin No bleeding/hematoma Anthony Aguilera RT (R) Pulses Time Site Pre-Procedure Post-Procedure Note 01/23/2017 10:31:00 AM Bilateral radial 2+ 01/23/2017 10:31:00 AM Bilateral DP & PT 1+ 11:30:00 AM Rt Radial 2+ 11:30:00 AM Bilateral DP & PT 1+ Updated by Stacey Jackson RT(R) on 01/23/2017 11:48:10 AM electronically signed on 01/23/2017 11:48:35 AM with status of Final
--- NOTE | 2017-01-23 12:23 | Carotid Imaging Report ---
Carotid Duplex Patient Name:Lasha Drew Order Number:[id number] Procedure Date:01/20/2017 Date:1930ge:86 yrs Gender:Male Lt BP:166 / 100 mmHg Rt.BP:166 / 101 mmHgHeart Rate: Location:[facility] Room #: 3B22 Lasting Floorworker:Philippe Calderon Referring MD:Hasmukh Gonzalez, SPECIAL EDUCATION SCIENCE TEACHER lodge officer:[facility] Reading MD:Derek Charles MD , FACS Primary Indications:Dizzniess, Pre-syncopal spells Risk Factors Yes/No Hypertension Yes Hypercholesterolemia Yes Diabetes Yes Smoker Previous Yes Hx of CAD/PTCA Yes Impressions: Findings: Bilateral carotid systems have nonstenotic plaque. Findings Carotid Duplex: Right: There is nonstenotic plaque in the right bifurcation. There is smooth homogeneous plaque. Left: There is nonstenotic plaque in the left bifurcation. There is smooth homogeneous plaque. There is nonstenotic plaque in the left proximal internal carotid artery. There is smooth homogeneous plaque. There is nonstenotic plaque in the left mid internal carotid artery. There is smooth heterogeneous plaque. Carotid Results Right PSV EDV Assessment Proximal CCA 68 21 Normal Mid CCA 56 18 Normal Distal CCA 61 20 Normal Bifurcation 50 18 Non Stenotic Plaque Proximal ICA 77 20 Normal Mid ICA 56 16 Normal Distal ICA 40 11 Normal ECA 45 7 Normal Vertebral Artery 59 8 Antegrade Flow Left PSV EDV Assessment Proximal CCA 94 18 Normal Mid CCA 59 9 Normal Distal CCA 50 12 Normal Bifurcation 55 15 Non Stenotic Plaque Proximal ICA 54 13 Non Stenotic Plaque Mid ICA 74 19 Non Stenotic Plaque Distal ICA 65 18 Normal ECA 90 13 Normal Vertebral Artery 49 10 Antegrade Flow Ratio's Right ICA/CCA Ratio: 1.37 ICA/CCA Values: 77/56 Left ICA/CCA Ratio: 1.25 ICA/CCA Values: 74/59 Updated by Derek Charles MD, FACS on 01/23/2017 12:16:27 PM Dreek Charles MD electronically signed on 01/23/2017 12:16:42 PM with status of Final
--- NOTE | 2017-01-23 12:45 | Electrocardiograph Report ---
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
--- NOTE | 2017-01-23 13:48 | Invasive Diagnostic Lab ---
Name: Lasha Drew Date of Study: 01/23/2017 Date: 1930 Ht: 173.0 cm /68.1 in Medical Record#: [id number] Age: 86 Wt: 86. kg / 189.60 lb Account/Order#: [id number] Gender: Male BSA: 2. Order #: [id number] Fluoro Dose: 1208 mGy BMI: 28.73 Procedure Physician: Alejandro Anderson MD, [facility] Referring MD: Referring MD: Procedures Performed: LEFT HEART CATH PTCA Single Major Vessel PTCA Single Major Vessel Iliofemoral angiography with cath Indications: Non-Stemi Impressions: There is severe three vessel coronary artery disease. The left ventricle is normal and has mildly abnormal contractility EF 35% Patient had successful PTCA in the proximal RCA for instent restenosis. Stent placed from a prior procedure in the Mid LAD is patent. Patient had PTCA of Proximal Circumflex however lesion was very calcified and unable to predilate adequately for stent placement. Recommendations: Optimal medical therapy of patient's disease. Aggressive risk factor modification. Return for rotablator PCI of the proximal circumflex. History/Risk Factors: GERD CP 3 stents Diabetes Hypertension Previous PCI Procedure Access obtained in the right Femoral artery by percutaneous puncture. Unable to perform LHC from the right radial secondary to 2 tortuosities. Patient had successful PTCA in the proximal RCA. Complications: None Contrast: Isovue 170ml Closure Device: Manual Compression Hemodynamics: Pressures Site Systolic/ A Wave Diastolic/ V Wave End Diastolic/ Mean HR AO 120 64 86 73 AO 95 73 84 72 AO 92 68 81 71 LV 109 -4 -2 90 LV 111 6 31 74 AO 0 AO 78 43 58 60 AO 104 75 90 77 LV Ventriculography Ejection Method: LV Gram Ejection Fraction: 35% Wall Motion: CEBALLOS Anterobasal Moderate Hypokinesis Anterolateral Moderate Hypokinesis Apical: Moderate Hypokinesis Inferoapical Moderate Hypokinesis Inferobasal Severe Hypokinesis Coronary Dominance: right Lesion Findings/Interventions * Left Main Coronary Artery The LMCA is angiographically free of disease. * Left Anterior Descending There is a 20% stenosis in the Proximal LAD. There is a 90% stenosis in the Distal LAD. * Circumflex There is a 8 mm long, 95% stenosis in the Proximal Circumflex. The lesion has no thrombus present and has severe calcification noted. An intervention was performed on the Proximal Circumflex with a final stenosis of 90% . Unable to open lesion due to severe calcification. The final ALVARADO flow was 2. There is a 95% stenosis in the distal OM * Right Coronary Artery There is a 20 mm long, 70% in stent stenosis in the Proximal RCA. The lesion has no thrombus present. An intervention was performed on the Proximal RCA with a final stenosis of 0%. There were no lesion complications. The final ALVARADO flow was 3. Iliofemoral angiography shows no significant disease in the right proximal external iliac, DOCTOR OF DENTAL SURGERY, or proximal SFA/profunda Interventional Device(s) Vessel Segment Type Name Diameter (mm) Length (mm) Proximal Circumflex Balloon Emerge Monorail 2.5 8 Proximal Circumflex Cutting Balloon Flextome Monorail 2.5 10 Proximal Circumflex Balloon Emerge Monorail 1.5 20 Proximal RCA Balloon Emerge Monorail 3 20 Proximal RCA Balloon NC Emerge 3.5 20 Updated by RT [place](R) on 01/23/2017 11:46:11 AM Alejandro Anderson MD, FACC electronically signed on 01/23/2017 1:43:52 PM with status of Final
[2017-01-23] MEDS ORDERED: *HR* Atropine Sulfate 1 MG/10 ML SYRINGE ONE (15:41)
--- NOTE | 2017-01-23 16:53 | Internal Med Progress Note ---
Date of Encounter: 01/23/17 Time of Encounter: 14:30 - Assessment and plan (1) Dizziness Current Visit: Yes Status: Acute Assessment and plan: PAtient presented with dizziness and shortness of breath on exertion. improved. (2) Cardiomyopathy Current Visit: Yes Status: Acute Assessment and plan: New diagnosis systolic heart failure, not in exacerbation. Echocardiogram revealed severe LV systolic dysfunction, LVEF 25-30%, global LV hypokinesis, mild concentric LVH, dilated right ventricle with moderate RV hypokinesis, severely dilated left atrium, severely dilated right atrium. Appreciate cardiology input. Patient had LHC showing severe three vessel CAD, PTCA in the proximal RCA and proximal circumflex. Continue Plavix, ASA, lisinopril and coreg. Qualifiers: Cardiomyopathy type: unspecified Qualified Code(s): I42.9 - Cardiomyopathy , unspecified (3) Atrial fibrillation Current Visit: Yes Status: Acute Assessment and plan: new onset afib. hr is adequate. continue coreg. Qualifiers: Atrial fibrillation type: unspecified Qualified Code(s): I48.91 - Unspecified atrial fibrillation (4) CAD (coronary artery disease) Current Visit: Yes Status: Acute Qualifiers: Coronary Disease-Associated Artery/Lesion type: [place] artery [place] vs. transplanted heart: [place] heart Associated angina: without angina Qualified Code(s): I25.10 - Atherosclerotic heart disease of [place] coronary artery without angina pectoris (5) Diabetes Current Visit: Yes Status: Chronic Assessment and plan: glucose levels are adequate. continune iss. diabetic diet. 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 continue lisinopril Qualifiers: Hypertension type: essential hypertension Qualified Code(s): I10 - Essential (primary) hypertension - Subjective Interval history: No chest pain. No shortness of breath. - Constitutional Vitals: Temp Pulse Resp BP Pulse Ox 97.5 F L 80 16 149/91 99 01/23/17 15:30 01/23/17 16:30 01/23/17 16:30 01/23/17 16:30 01/23/17 16:30 General appearance: Present: cooperative, A&O X 3, pleasant, no acute distress, obese, answers questions appropriately - Neck Neck exam general surgery: Present: supple, trachea midline. Absent: lymphadenopathy - Respiratory Respiratory exam: Present: CTAB - Cardiovascular Cardiovascular exam: Present: RRR - GI/Abdominal GI/Abdominal exam: Present: normal bowel sounds, soft. Absent: distended, tenderness Additional comments: Femoral sheath in place. - Extremities Exam Extremities exam: Absent: pedal edema - Neurological Exam Neurological exam: Present: alert, oriented X3, no focal deficits, strengths equal and symetr throughout. Absent: facial droop, speech deficit - Skin Skin exam: Absent: rash Internal Medicine: Result - Labs CBC & Chem 7: 01/23/17 05:14 01/23/17 05:14 Labs: Short CBC 01/23/17 Range/Units 05:14 WBC 7.4 (4.3-11.1) K/mcL Hgb 11.9 L (12.9-16.9) g/dL Hct 36.2 L (37.5-50.1) % Plt Count 112 L (140-400) K/mcL Neutrophils # 4.0 (1.6-8.9) K/mcL BMP 01/23/17 05:14 Sodium 141 Potassium 4.2 Chloride 109 Carbon Dioxide 27 BUN 17 Creatinine 1.04 Glucose 105 H Calcium 9.3 - ABG Interpretation ABG results: PT/INR, D-dimer PT 11.4 Seconds (9.4-12.1) 01/20/17 19:58 Consult Discharge Plan - Plan [facility]errals: [facility] [Primary Care Provider[facility] - Hasmukh Esteves DO [Partnered Physician] - (SENT WEB REQUEST ON 01-23-17 @ [id number])
[2017-01-23] MEDS: Gabapentin 300 MG CAPSULE PO SCH (20:42)
[2017-01-24 07:34] LABS: Basophils % 0.5 %; Eosinophils # 0.1 K/mcL (0.0-0.6); Eosinophils % 1.6 %; Hematocrit 36.5 % (37.5-50.1); Immature Granulocytes % 0.2 % (0-4); Lymphocytes # 1.7 K/mcL (0.6-4.6); Mean Corpuscular HGB Conc 32.9 g/dL (31.6-35.5); Mean Corpuscular Volume 97.3 fL (83.0-100.0); Mean Platelet Volume 11.8 fL (9.4-12.4); Monocytes # 0.8 K/mcL (0.0-1.3); Monocytes % 10.2 %; Neutrophils # 5.5 K/mcL (1.6-8.9); Platelet Count 100 K/mcL (140-400); Red Blood Count 3.75 M/mcL (4.19-5.50); Red Cell Distribution Width 14.6 % (11.5-14.5); Segmented Neutrophils % 66.5 %
[2017-01-24] MEDS: *HR* Heparin 5,000 UNIT/ML VIAL SQ SCH (07:50)
[2017-01-24] MEDS: Aspirin 81 MG TAB.CHEW PO SCH (08:24)
[2017-01-24] MEDS: Finasteride 5 MG TABLET PO SCH (08:24)
[2017-01-24] MEDS: Lisinopril 20 MG TABLET PO SCH (08:24)
[2017-01-24] MEDS: Multivit/Ca/Min/Fe/FA 1 TAB TABLET PO SCH (08:24)
[2017-01-24] MEDS: Pantoprazole 40 MG VIAL IVP SCH (08:29)
[2017-01-24 08:40] LABS: BUN/Creatinine Ratio 17 (6-26); Blood Urea Nitrogen 14 mg/dL (8-26); Calcium 9.2 mg/dL (8.6-10.8); Carbon Dioxide 27 mEq/L (19-29); Chloride 107 mEq/L (98-109); Glucose 103 mg/dL (70-99); Magnesium 1.8 mg/dL (1.6-2.6); Osmolality,Calculated 287 (280-300); Potassium 4.1 mEq/L (3.5-4.5); Sodium 138 mEq/L (136-145); eGFR For African Americans > 60 (> 60); eGFR For Non-African Americans > 60 (> 60)
--- NOTE | 2017-01-24 10:00 | Cardiology Progress Note ---
Date of Encounter: 01/24/17 Time of Encounter: 09:30 Assessment and Plan (1) Fall Current Visit: Yes Status: Acute Per cardiology: -Patient fell at home during dizzy episode. -Patient had history of dizziness, however states he has never fallen previously because of dizziness -Patient reports 3 falls in the past 6 months, unrelated to dizziness. -Management per primary service. Qualifiers: Encounter type: initial encounter Qualified Code(s): W19.XXXA - Unspecified fall, initial encounter (2) Cardiomyopathy Current Visit: Yes Status: Acute Per cardiology: -Echo 01/20/17 with LVEF 25-30%, global LV hypokinesis, mild concentric left ventricular hypertrophy, dilated RV with moderate RV hypokinesis, severely dilated left atrium, severely dilated right atrium, mild AR, mild MR, mild pulmonary hypertension, all [place]art[place] were hypokinetic. -Echo 2013 with LVEF 60%, mild As, mild AR, mild MR, mild diastolic dysfunction. -Known history of CAD. -On beta joseph and julia inhibitor. -Euvolemic on exam. -C 01/23/17 with 20% proximal LAD, 90% distal LAD, 95% proximal circumflex calcified with balloon angioplasty and residual stenosis of 90% noted, 95% distal OM, 70% instent restenosis with balloon angioplasty. Per discussion with , plan to stage patient for rotablator to circumflex. -ON asa, statin, beta joseph, ujlia inhibitor, plavix. -Right groin access site education given to patient. -Educated patient on importance of dual anti-platelet therapy un-interrupted. -CArdiology will sign off, Follow up set with to discussion arrangement of staged procedure. -Plan for repeat echocardiogram 3 months following second procedure. Qualifiers: Cardiomyopathy type: unspecified Qualified Code(s): I42.9 - Cardiomyopathy , unspecified (3) Atrial fibrillation Current Visit: Yes Status: Acute Per cardiology: -No previous history of atrial fibrillation. -Per review of telemetry, average HR 79. Intermittent atrial fibrillation with sinus rhythm. -On asa. -Chads 2vasc score 5 (age, HTN, vascular disease, DM). ON asa. Patient with frequent falls. Not a good candidate for anticoagulation. Patient and family aware of increased risk of stroke and agree with no anticoagulation at this time. -On beta joseph. Hr controlled. -Will re-assess anticoagulation in outpatient setting due to frequent falls. Qualifiers: Atrial fibrillation type: unspecified Qualified Code(s): I48.91 - Unspecified atrial fibrillation (4) CAD (coronary artery disease) Current Visit: Yes Status: Acute Per cardiology: -Known CAD with Last cath 2009 with 2 KIESHA to RCA. -Echo as above. -ECG with no ischemic changes. -Denies chest pain. Unable to remember his symptoms prior to needing stenting before. -Denies shortness of breath or fatigue. -LHC as above. -On asa, statin, beta joseph, julia inhibitor, and plavix. -Will monitor in outpatient setting. Qualifiers: Coronary Disease-Associated Artery/Lesion type: [place] artery [place] vs. transplanted heart: [place] heart Associated angina: without angina Qualified Code(s): I25.10 - Atherosclerotic heart disease of [place] coronary artery without angina pectoris (5) Elevated troponin Current Visit: Yes Status: Acute Per cardiology: -Troponin 0.08, 0.1 at [place] At [facility] noted to be 0.14, 0.19. -Denies chest pain. -ECG with no ischemic changes. -Echo as above with new cardiomyopathy noted. -LHC as above with intervention. -Denies chest pain overnight. -Will follow in outpatient setting. Discussion w patient/family: The assessment and plan as outlined above was discussed with the who expressed understanding and agreement. All questions were answered. Thank you for involving us in the care of your patient. Please call with any questions. Discussed and reviewed with . Subjective Principal diagnosis: fall Interval history: Patient admitted after fall and noted to have elevated troponin. EF noted to be reduced. New atrial fibrillation noted. Patient underwent LHC yesterday. Patient denies chest pain. Denies issues with right groin access site. Objective Vital Signs, Last 4 Hours Temp Pulse Resp BP Pulse Ox 01/24/17 07:40 98.2 F 76 18 136/96 98 General: Conversant, No Apparent Distress HEENT: Atraumatic, Normocephaly, Mucus Membranes Moist Neck: No JVD, Normal carotid pulses Cardiac: Normal S1 and S2, No Murmur, Other (Irregularly irregular) Lungs: Normal Breath Sounds, No Wheeze, Rales, Rhonchi Neuro: Alert and responsive, No focal deficits noted Abdomen: Soft, Non-Tender Skin: No rashes noted on visualized skin, Other (Right groin access site with ecchymosis, no hematoma. ) Musculoskeletal: No Chest Wall Tenderness Extremities: No Clubbing, No Cyanosis, No Edema, Normal Pulses Results 01/24/17 06:55 01/24/17 06:55 Lab Results Active Medications Acetaminophen (Tylenol) 650 mg PO Q6HR PRN PRN Reason: Mild Pain (1-3) Stop: 07/22/17 19:15 Hydrocodone Bitart/Acetaminophen ([place] 5-325 Mg) 1 tab PO Q4HR PRN PRN Reason: Moderate Pain (4-6) Stop: 07/22/17 19:15 Albuterol/Ipratropium (Duoneb) 3 ml IH [id number] PRN; Protocol PRN Reason: Shortness Of Breath/Wheezing Stop: 07/22/17 20:37 Aspirin (Aspirin) 81 mg PO DAILY [facility] Stop: 07/23/17 09:01 Last Admin: 01/24/17 08:24 Dose: 81 mg Carvedilol (Coreg) 12.5 mg PO BIDWM NEETU PRN Reason: Protocol Stop: 07/23/17 08:01 Last Admin: 01/24/17 08:24 Dose: 12.5 mg Clopidogrel Bisulfate (Plavix) 75 mg PO DAILY [facility] Stop: 07/26/17 09:01 Last Admin: 01/24/17 08:24 Dose: 75 mg Ferrous Sulfate (Ferrous Sulfate) 325 mg PO DAILY [facility] Stop: 07/23/17 09:01 Last Admin: 01/24/17 08:24 Dose: 325 mg Finasteride (Proscar) 5 mg PO DAILY [facility]U PRN Reason: Protocol Stop: 07/23/17 09:01 Last Admin: 01/24/17 08:24 Dose: 5 mg Gabapentin (Neurontin) 300 mg PO HS [facility] Stop: 07/22/17 21:01 Last Admin: 01/23/17 20:42 Dose: 300 mg Heparin Sodium (Porcine) (Heparin) 5,000 unit SQ Q12HCO [facility] Stop: 07/22/17 19:16 Last Admin: 01/24/17 07:50 Dose: 5,000 unit Hydralazine HCl (Hydralazine) 10 mg IVP Q6HR PRN PRN Reason: Hypertension Stop: 07/25/17 15:02 Last Admin: 01/23/17 15:30 Dose: 10 mg Lisinopril (Zestril) 20 mg PO BID NEETU PRN Reason: Protocol Stop: 07/22/17 21:01 Last Admin: 01/24/17 08:24 Dose: 20 mg Morphine Sulfate (Morphine Sulfate) 2 mg IVP Q4HR PRN PRN Reason: Severe Pain (7-10) Stop: 07/22/17 19:15 Multivitamins/Calcium (Thera M Plus) 1 tab PO DAILY [facility] Stop: 07/23/17 09:01 Last Admin: 01/24/17 08:24 Dose: 1 tab Naloxone HCl (Narcan) 0.4 mg IVP Q2MIN PRN PRN Reason: Opioid Reversal Stop: 07/22/17 19:15 Ondansetron HCl (Zofran) 4 mg IVP Q8HR PRN PRN Reason: Nausea And Vomiting Stop: 07/22/17 19:15 Pantoprazole Sodium (Protonix) 40 mg IVP DAILY [facility] Stop: 07/23/17 09:01 Last Admin: 01/24/17 08:29 Dose: 40 mg Simvastatin (Zocor) 20 mg PO HS NEETU PRN Reason: Protocol Stop: 07/22/17 21:01 Last Admin: 01/23/17 20:43 Dose: 20 mg Laboratory Tests 01/24/17 01/24/17 06:55 06:55 Hgb 12.0 L Creatinine 0.84 - Imaging and Cardiology Chest Xray: report reviewed Echo: report reviewed Cardiac cath: report reviewed - EKG Interpretation EKG results cardiology: other (Telemetry reviewed with average HR 79, atrial fibrillation. PVCs noted. One 11 beat run of non-sustained ventricular tachycardia noted.) Consult Discharge Plan - Plan Referrals: Hasmukh Esteves DO [Partnered Physician] - 01/30/17 1:30 pm () Prescriptions: Carvedilol 12.5 mg PO BID #60 tab Carvedilol 12.5 mg PO BID #60 tab Clopidogrel [Plavix] 75 mg PO DAILY #30 tablet Clopidogrel [Plavix] 75 mg PO DAILY #30 tablet
[2017-01-24 11:25] VITALS: BP 136/97
--- NOTE | 2017-01-24 12:15 | Discharge Summary ---
Date of Encounter: 01/24/17 Time of Encounter: 11:00 - Discharge Diagnosis (1) Ischemic cardiomyopathy Priority: Primary Status: Acute (2) Systolic CHF Priority: Primary Status: Acute Qualifiers: Congestive heart failure chronicity: unspecified congestive heart failure chronicity Qualified Code(s): I50.20 - Unspecified systolic (congestive) heart failure (3) Dizziness Priority: Primary Status: Acute (4) Hypertension Priority: Secondary Status: Acute Qualifiers: Hypertension type: essential hypertension Qualified Code(s): I10 - Essential (primary) hypertension (5) Elevated troponin Priority: Primary Status: Acute (6) DVT prophylaxis Priority: Secondary Status: Acute (7) Diabetes Priority: Secondary Status: Chronic Qualifiers: Diabetes mellitus type: type 2 Diabetes mellitus complication status: without complication 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: without equipment operator intermodal yard use Qualified Code(s): E11.9 - Type 2 diabetes mellitus without complications (8) Fall Priority: Primary Status: Acute Qualifiers: Encounter type: initial encounter Qualified Code(s): W19.XXXA - Unspecified fall, initial encounter (9) Atrial fibrillation Priority: Primary Status: Acute Qualifiers: Atrial fibrillation type: unspecified Qualified Code(s): I48.91 - Unspecified atrial fibrillation (10) CAD (coronary artery disease) Priority: Secondary Status: Acute Qualifiers: Coronary Disease-Associated Artery/Lesion type: [place] artery [place] vs. transplanted heart: [place] heart Associated angina: without angina Qualified Code(s): I25.10 - Atherosclerotic heart disease of [place] coronary artery without angina pectoris - Discharge Medications Prescriptions: Carvedilol 12.5 mg PO BID #60 tab Clopidogrel [Plavix] 75 mg PO DAILY #30 tablet Home Medications: Alfuzosin HCl [Uroxatral] 10 mg PO DAILY 01/20/17 [History] Allopurinol [Zyloprim 300 MG] 300 mg PO DAILY 01/20/17 [History] Aspirin 81 mg PO DAILY 01/20/17 [History] Ferrous Sulfate 325 mg PO DAILY 01/20/17 [History] Finasteride [Proscar] 5 mg PO DAILY 01/20/17 [History] Gabapentin [Neurontin] 300 mg PO HS 01/20/17 [History] Lisinopril [Zestril] 20 mg PO BID 01/20/17 [History] Multivitamin [Multi-Day Vitamins] 1 each PO DAILY 01/20/17 [History] Simvastatin [Zocor] 20 mg PO HS 01/20/17 [History] Meclizine [Antivert] 25 mg PO PRN 01/22/17 [History] Carvedilol 12.5 mg PO BID #60 tab 01/23/17 [Rx] Clopidogrel [Plavix] 75 mg PO DAILY #30 tablet 01/23/17 [Rx] Allergies/Adverse Reactions: Allergies No Known Allergies Allergy (Verified 03/26/15 12:25) Procedures/tests Complete & Pending: Procedures Performed prior 72 hours Category Date Time Status CL Cardiac Catheterization [CL] Routine [place] 01/23/17 09:06 Completed ECG 12 lead ECG [ECG] Routine Y 01/23/17 12:25 Completed - Notes to Outpatient Provider 1. Add the Plavix 75 mg by mouth daily per cardio recommendation. Increased dose of Coreg from 6.25 mg twice a day to 12.5 mg twice a day. Please follow up heart rate and blood pressure. Date of admission: 01/20/17 19:14 Primary care physician: PCP [facility] Consults: 01/23/17 14:00 Consult to Physical Therapy [CONS] Routine Comment: Evaluate, develop and implement POC Reason for Consult: falls 01/24/17 08:08 Consult to Cardiac Rehabilitation-Phase1 [CONS] Routine Comment: Reason for Consult: PCI, new cardiomyopathy Call Completed: No Discharging clinician: Nelson Saunders Anticipated date of discharge: 01/24/17 - Patient Status Disposition: Home, Self-Care Condition: Good Functional capacity at discharge: uses cane/walker Overall status at discharge: patient is back to baseline - Discharge Instructions Follow Up With: Hasmukh Esteves DO [Partnered Physician] - 01/30/17 1:30 pm () - Diet and Activity Activity: increase activity as tolerated Diet: low fat, low cholesterol, low salt diet Interval History: Mr. Drew is a 86 year old male who presents from the ED with chief complaint of dizziness and hypertension. Patient reports he fell two times yesterday morning without warning but denies losing consciousness. He states his dizzy spells last approximately 30 seconds or less. Patient was seen at the [facility] today and his labs showed an elevated troponin. Patient denies any chest pain or pressure but does report some SOB. He states that his BP has been running high for the past several days. Urinalysis at the [facility] was negative, platelets were 112 ,000, Hgb was 13 and Hct 39.3, with troponin at 0.088. Patient has a medical history of coronary artery disease, diabetes, GERD, hypertension, and diverticulosis. Patient reports previous heart catheterizations with placement of 3 stents. Patient currently sees Dr. Diaz and reports last appointment was a few months ago. Patient is at moderate risk for cardiac event based on history and current symptoms and will be placed as inpatient with orders for continuous cardiac telemetry, supplemental O2 titration if SPO2 less than 92%, continuous SPO2 monitoring, troponins to be trended 2, orthostatic BP and vital signs, orders for echocardiogram and bilateral carotid duplex imaging, and safety precautions to include falls precautions/up with assist/bed rest with bathroom privileges with assist only. Cardiology consult ordered and placed in the ED. Patient to be monitored closely for signs of increasing cardiac and/or respiratory distress. Hospital course: Mr. Drew is a 86 year old male admitted for dizziness and elevated troponin. Further study shows systolic CHF with LVEF of 25-30%, which is new. Cardiac consult was called. Consider patient has ischemic cardiomyopathy. LHC has been done, had PTCA but not stent. Cardiology plan to stage patient for rotablator to circumflex, for the remaind stenosis. Recommend aggressive medical management at this point. Patient had carotid duplex, result is unremarkable. Patient was seen and examined today. He denies chest pain, shortness of breath , dizziness. Vitals are stable. Will continue to follow cardiology recommendation. Patient will discharge home and follow-up with cardiology as outpatient. - Time Spent with Patient Total time spent providing and/or coordinating discharge services:40 min Greater than 30 minutes - Constitutional Vitals: Temp Pulse Resp BP Pulse Ox 97.8 F 86 18 136/97 98 01/24/17 11:22 01/24/17 11:30 01/24/17 11:22 01/24/17 11:22 01/24/17 11:22 General appearance: Present: cooperative, A&O X 3, pleasant, no acute distress, obese, answers questions appropriately - Head Head exam: Present: atraumatic, normocephalic - Eye Eye exam: Present: PERRL, conjuntiva pink, sclera anicteric Pupils: Present: PERRL - Neck Neck exam general surgery: Present: supple, trachea midline. Absent: lymphadenopathy - Respiratory Respiratory exam: Present: CTAB. Absent: accessory muscle use, rales, rhonchi, wheezes - Cardiovascular Cardiovascular exam: Present: irregular rhythm, +S1, +S2. Absent: diastolic murmur, gallop, rubs, systolic murmur - GI/Abdominal GI/Abdominal exam: Present: normal bowel sounds, soft, no peritoneal signs. Absent: distended, tenderness - Extremities Exam Extremities exam: Present: warm, radial pulses palpable and symetrical. Absent : calf tenderness, cyanotic, pedal edema - Neurological Exam Neurological exam: Present: CN II-XII intact, oriented X3, no focal deficits. Absent: pronater drift, facial droop, speech deficit - Skin Skin exam: Present: dry, intact
--- NOTE | 2017-01-24 17:37 | Electrocardiograph Report ---
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
== END 2017-01-24 13:47 | disposition home or self-care (01) | DRG 250 ==
LOC: 3BNU 14:27 → EMEROO 14:27 → 3BNU 17:09 → SUATTDRO 19:14 → 2NNU 01-23 10:59
PROVIDERS: ADMIT Internal Medicine; ATTEND Internal Medicine

== ENCOUNTER 2017-08-05 01:13 | Inpatient (IN) ==
[2017-08-05] MEDS ORDERED: 0.9 % Sodium Chloride 1,000 ML IVC ONE (01:24)
[2017-08-05] MEDS ORDERED: Acetaminophen 650 MG RECTAL SUPP RC STA (01:31)
[2017-08-05 02:00] LABS: Bilirubin,Urine Negative (Negative); Blood,Urine Large (Negative); Clarity,Urine Cloudy (Clear); Color,Urine Yellow (Yellow); Glucose,Urine (UA) Normal (Normal); Ketones,Urine Negative (Negative); Leukocyte Esterase,Urine Large (Negative); Nitrite,Urine Negative (Negative); PH,Urine 6.5 pH Units (5.0-8.0); Protein,Urine Negative (Neg-Trace); Specific Gravity,Urine 1.021 (1.010-1.025); Urobilinogen,Urine Normal (Normal)
[2017-08-05 02:02] LABS: Bacteria,Urine Many per hpf (None-Few); Hyaline Casts,Urine None Seen per lpf (None-Few); RBC,Urine TNTC per hpf (0-3); Squamous Epithelial Cell,Urine Many per lpf (None-Few); WBC,Urine TNTC per hpf (0-3)
[2017-08-05 02:03] LABS: Basophils % 0.5 %; Eosinophils # 0.5 K/mcL (0.0-0.6); Eosinophils % 5.5 %; Hematocrit 34.5 % (37.5-50.1); Hemoglobin 11.1 g/dL (12.9-16.9); Immature Granulocytes % 0.2 % (0-4); Lymphocytes # 0.7 K/mcL (0.6-4.6); Lymphocytes % 8.3 %; Mean Corpuscular HGB Conc 32.2 g/dL (31.6-35.5); Mean Corpuscular Hemoglobin 30.1 pg (28.0-33.3); Mean Corpuscular Volume 93.5 fL (83.0-100.0); Mean Platelet Volume 10.3 fL (9.4-12.4); Monocytes # 0.7 K/mcL (0.0-1.3); Monocytes % 7.7 %; Neutrophils # 6.8 K/mcL (1.6-8.9); Platelet Count 241 K/mcL (140-400); Red Blood Count 3.69 M/mcL (4.19-5.50); Red Cell Distribution Width 15.4 % (11.5-14.5); Segmented Neutrophils % 77.8 %
[2017-08-05] MEDS ORDERED: Oseltamivir 6 MG/ML MLS PO ONE (02:10)
--- NOTE | 2017-08-05 02:17 | Emergency Department Note ---
Disposition Clinical Impression: Influenza, Elevated troponin UTI (urinary tract infection) Qualifiers: Urinary tract infection type: site unspecified Hematuria presence: without hematuria Qualified Code(s): N39.0 - Urinary tract infection, site not specified Disposition: Admitted As Inpatient Condition: Good General Adult HPI - General Chief complaint: ED Fever Stated complaint: difficulty swallowing/fever Time Seen by Provider: 08/05/17 01:22 Source: EMS Mode of arrival: EMS Limitations: no limitations Nursing Notes Reviewed: Yes Vital Signs Reviewed: Yes - History of Present Illness HPI Narrative: Patient presents from the shelter for evaluation of fever and cough. Patient has a history of atrial fibrillation as well as stroke with right-sided deficits in swallowing problems. The patient's temperature was found to be elevated. He had difficulty with swallowing compared to usual. They noticed cough. The patient's symptoms started earlier today. Patient is not able to give further history into what else is going on. Patient speaking in garbled speech which is reported as normal per EMS from shelter. Pain Scale: 0 - Related Data Home Medications Medication Instructions Recorded Confirmed Alfuzosin HCl [Uroxatral] 10 mg PO DAILY 01/20/17 01/20/17 Allopurinol [Zyloprim 300 MG] 300 mg PO DAILY 01/20/17 01/20/17 Aspirin 81 mg PO DAILY 01/20/17 01/20/17 Ferrous Sulfate 325 mg PO DAILY 01/20/17 01/20/17 Finasteride [Proscar] 5 mg PO DAILY 01/20/17 01/20/17 Gabapentin [Neurontin] 300 mg PO HS 01/20/17 01/20/17 Lisinopril [Zestril] 20 mg PO BID 01/20/17 01/20/17 Multivitamin [Multi-Day Vitamins] 1 each PO DAILY 01/20/17 01/20/17 Simvastatin [Zocor] 20 mg PO HS 01/20/17 01/20/17 Meclizine [Antivert] 25 mg PO PRN 01/22/17 Previous Rx's Medication Instructions Recorded Carvedilol 12.5 mg PO BID #60 tab 01/23/17 Clopidogrel [Plavix] 75 mg PO DAILY #30 tablet 01/23/17 Allergies Allergy/AdvReac Type Severity Reaction Status Date / Time No Known Allergies Allergy Verified 03/26/15 12:25 Limitations: ROS unobtainable due to patients medical condition Past Medical History - Past Medical History Medical history: Reports: diabetes, GERD, myocardial infarction, atrial fibrillation, hypertension, other, coronary artery disease Surgical history: Reports: cataract, orthopedic, other, angioplasty/stent Psychiatric history: Reports: no psych history - Social History Smoking Status: Former smoker Smokeless Tobacco Status: No Alcohol use: Reports: none Drug use: Reports: none Physical Exam General: Unable to communicate Head: Normocephalic Atraumatic Eyes: PERRL, EOMI ENT: Airway patent, no stridor; mucous membranes dry Neck: supple, no meningismus Chest: Lungs clear to auscultation bilateral Cardiac: Irregular rhythm Abdomen: soft, nontender, nondistended; no guarding, rebound, or tenderness to percussion Musculoskeletal: Swelling to the right side with right-sided paralysis Skin: No rash, normal skin tone - General General appearance: alert Course - Reevaluation(s) Reevaluation #1: Influenza positive. Urinalysis with significant concern for infection. Troponin elevated at 0.1. Normal in comparison to old results. Tamiflu and ceftriaxone and been given. Fluids been given. Lactic acid is normal. Patient will be admitted for further antibiotics, Tamiflu and management. - Consultations Consultation #1: Discussed with hospitalist, Dr. Saunders, pt accepted for admission. Due to the patient's cough and previous stroke with aspiration risk, requests broadened antibiotic coverage to include that for aspiration pneumonia. Request Unasyn. Vital Signs Temperature 99.7 F H 08/05/17 01:19 Pulse Rate 101 08/05/17 01:19 Respiratory Rate 18 08/05/17 01:19 Blood Pressure 130/75 08/05/17 01:19 O2 Sat by Pulse Oximetry 94 08/05/17 01:19 Temperature 99.7 F H 08/05/17 01:19 Pulse Rate 80 08/05/17 04:21 Respiratory Rate 18 08/05/17 04:21 Blood Pressure 128/78 08/05/17 04:21 O2 Sat by Pulse Oximetry 97 08/05/17 04:21 Oxygen Delivery Oxygen Delivery Room Air Medical Decision Making - Lab Data Result diagrams: 08/05/17 01:49 08/05/17 01:49 Lab Results 08/05/17 08/05/17 08/05/17 Range/Units 01:49 01:49 01:49 WBC 8.8 (4.3-11.1) K/mcL RBC 3.69 L (4.19-5.50) M/mcL Hgb 11.1 L (12.9-16.9) g/dL Hct 34.5 L (37.5-50.1) % MCV 93.5 (83.0-100.0) fL MCH 30.1 (28.0-33.3) pg MCHC 32.2 (31.6-35.5) g/dL RDW 15.4 H (11.5-14.5) % Plt Count 241 (140-400) K/mcL MPV 10.3 (9.4-12.4) fL Immature Gran % 0.2 (0-4) % Seg Neutrophils % 77.8 % Lymphocytes % 8.3 % Monocytes % 7.7 % Eosinophils % 5.5 % Basophils % 0.5 % Neutrophils # 6.8 (1.6-8.9) K/mcL Lymphocytes # 0.7 (0.6-4.6) K/mcL Monocytes # 0.7 (0.0-1.3) K/mcL Eosinophils # 0.5 (0.0-0.6) K/mcL Basophils # 0.0 (0.0-0.2) K/mcL PT (9.4-12.1) Seconds INR APTT (26.0-36.0) Seconds Sodium 135 L (136-145) mEq/L Potassium 4.3 (3.5-5.1) mEq/L Chloride 103 (98-107) mEq/L Carbon Dioxide 25 (23-29) mEq/L BUN 30 H (8-23) mg/dL Creatinine 0.73 (0.70-1.30) mg/dL Est GFR ( Amer) > 60 (> 60) Est GFR (Non-Af Amer) > 60 (> 60) BUN/Creatinine Ratio 41 H (6-26) Glucose 182 H (70-105) mg/dL Calculated Osmolality 291 (280-300) Lactic Acid (0.5-2.2) mmol/L Calcium 9.6 (8.6-10.3) mg/dL Phosphorus 3.0 (2.7-4.5) mg/dL Magnesium 1.9 (1.6-2.6) mg/dL Total Bilirubin 0.3 (0.3-1.0) mg/dL Direct Bilirubin 0.1 (0.0-0.2) mg/dL Indirect Bilirubin 0.2 (0.0-1.2) mg/dL AST 27 (13-39) Units/L ALT 28 (7-52) Units/L Alkaline Phosphatase 88 (34-104) Units/L Troponin I (< 0.04) ng/mL Serum Total Protein 6.9 (6.4-8.9) g/dL Albumin 3.5 (3.5-5.7) g/dL Globulin 3.4 (2.4-3.5) g/dL Albumin/Globulin Ratio 1.0 L (1.1-2.2) Urine Color Yellow (Yellow) Urine Clarity Cloudy A (Clear) Urine pH 6.5 (5.0-8.0) pH Units Ur Specific [place] 1.021 (1.010-1.025) Urine Protein Negative (Neg-Trace) mg/dL Urine Glucose (UA) Normal (Normal) mg/dL Urine Ketones Negative (Negative) mg/dL Urine Blood Large H (Negative) Urine Nitrite Negative (Negative) Urine Bilirubin Negative (Negative) Urine Urobilinogen Normal (Normal) mg/dL Ur Leukocyte Esterase Large H (Negative) Urine Microscopic RBC TNTC H (0-3) per hpf Urine Microscopic WBC TNTC H (0-3) per hpf Ur Squamous Epith Cells Many H (None-Few) per lpf Urine Bacteria Many H (None-Few) per hpf Hyaline Casts None Seen (None-Few) per lpf Ur Culture Indicated? NO. (NO) Specimen Rejected 08/05/17 08/05/17 08/05/17 Range/Units 01:49 01:49 02:07 WBC (4.3-11.1) K/mcL RBC (4.19-5.50) M/mcL Hgb (12.9-16.9) g/dL Hct (37.5-50.1) % MCV (83.0-100.0) fL MCH (28.0-33.3) pg MCHC (31.6-35.5) g/dL RDW (11.5-14.5) % Plt Count (140-400) K/mcL MPV (9.4-12.4) fL Immature Gran % (0-4) % Seg Neutrophils % % Lymphocytes % % Monocytes % % Eosinophils % % Basophils % % Neutrophils # (1.6-8.9) K/mcL Lymphocytes # (0.6-4.6) K/mcL Monocytes # (0.0-1.3) K/mcL Eosinophils # (0.0-0.6) K/mcL Basophils # (0.0-0.2) K/mcL PT (9.4-12.1) Seconds INR APTT (26.0-36.0) Seconds Sodium (136-145) mEq/L Potassium (3.5-5.1) mEq/L Chloride (98-107) mEq/L Carbon Dioxide (23-29) mEq/L BUN (8-23) mg/dL Creatinine (0.70-1.30) mg/dL Est GFR ( Amer) (> 60) Est GFR (Non-Af Amer) (> 60) BUN/Creatinine Ratio (6-26) Glucose (70-105) mg/dL Calculated Osmolality (280-300) Lactic Acid 1.5 (0.5-2.2) mmol/L Calcium (8.6-10.3) mg/dL Phosphorus (2.7-4.5) mg/dL Magnesium (1.6-2.6) mg/dL Total Bilirubin (0.3-1.0) mg/dL Direct Bilirubin (0.0-0.2) mg/dL Indirect Bilirubin (0.0-1.2) mg/dL AST (13-39) Units/L ALT (7-52) Units/L Alkaline Phosphatase (34-104) Units/L Troponin I 0.11 H* (< 0.04) ng/mL Serum Total Protein (6.4-8.9) g/dL Albumin (3.5-5.7) g/dL Globulin (2.4-3.5) g/dL Albumin/Globulin Ratio (1.1-2.2) Urine Color (Yellow) Urine Clarity (Clear) Urine pH (5.0-8.0) pH Units Ur Specific [place] (1.010-1.025) Urine Protein (Neg-Trace) mg/dL Urine Glucose (UA) (Normal) mg/dL Urine Ketones (Negative) mg/dL Urine Blood (Negative) Urine Nitrite (Negative) Urine Bilirubin (Negative) Urine Urobilinogen (Normal) mg/dL Ur Leukocyte Esterase (Negative) Urine Microscopic RBC (0-3) per hpf Urine Microscopic WBC (0-3) per hpf Ur Squamous Epith Cells (None-Few) per lpf Urine Bacteria (None-Few) per hpf Hyaline Casts (None-Few) per lpf Ur Culture Indicated? (NO) Specimen Rejected Clotted 08/05/17 Range/Units 02:42 WBC (4.3-11.1) K/mcL RBC (4.19-5.50) M/mcL Hgb (12.9-16.9) g/dL Hct (37.5-50.1) % MCV (83.0-100.0) fL MCH (28.0-33.3) pg MCHC (31.6-35.5) g/dL RDW (11.5-14.5) % Plt Count (140-400) K/mcL MPV (9.4-12.4) fL Immature Gran % (0-4) % Seg Neutrophils % % Lymphocytes % % Monocytes % % Eosinophils % % Basophils % % Neutrophils # (1.6-8.9) K/mcL Lymphocytes # (0.6-4.6) K/mcL Monocytes # (0.0-1.3) K/mcL Eosinophils # (0.0-0.6) K/mcL Basophils # (0.0-0.2) K/mcL PT 12.5 H (9.4-12.1) Seconds INR 1.2 APTT 27.2 (26.0-36.0) Seconds Sodium (136-145) mEq/L Potassium (3.5-5.1) mEq/L Chloride (98-107) mEq/L Carbon Dioxide (23-29) mEq/L BUN (8-23) mg/dL Creatinine (0.70-1.30) mg/dL Est GFR ( Amer) (> 60) Est GFR (Non-Af Amer) (> 60) BUN/Creatinine Ratio (6-26) Glucose (70-105) mg/dL Calculated Osmolality (280-300) Lactic Acid (0.5-2.2) mmol/L Calcium (8.6-10.3) mg/dL Phosphorus (2.7-4.5) mg/dL Magnesium (1.6-2.6) mg/dL Total Bilirubin (0.3-1.0) mg/dL Direct Bilirubin (0.0-0.2) mg/dL Indirect Bilirubin (0.0-1.2) mg/dL AST (13-39) Units/L ALT (7-52) Units/L Alkaline Phosphatase (34-104) Units/L Troponin I (< 0.04) ng/mL Serum Total Protein (6.4-8.9) g/dL Albumin (3.5-5.7) g/dL Globulin (2.4-3.5) g/dL Albumin/Globulin Ratio (1.1-2.2) Urine Color (Yellow) Urine Clarity (Clear) Urine pH (5.0-8.0) pH Units Ur Specific [place] (1.010-1.025) Urine Protein (Neg-Trace) mg/dL Urine Glucose (UA) (Normal) mg/dL Urine Ketones (Negative) mg/dL Urine Blood (Negative) Urine Nitrite (Negative) Urine Bilirubin (Negative) Urine Urobilinogen (Normal) mg/dL Ur Leukocyte Esterase (Negative) Urine Microscopic RBC (0-3) per hpf Urine Microscopic WBC (0-3) per hpf Ur Squamous Epith Cells (None-Few) per lpf Urine Bacteria (None-Few) per hpf Hyaline Casts (None-Few) per lpf Ur Culture Indicated? (NO) Specimen Rejected Attestation Statement - Attestation Attestation: I, Arjun Armas MD, personally evaluated this patient and discussed their management with the resident physician. I reviewed the resident's note and agree with the documented findings, medical decision making, and plan of care. 86-year-old male presents to the emergency department from a shelter for complaint of some fever and apparently sore throat or difficulty swallowing. Patient is nonverbal secondary to a previous stroke and unable to really provide any significant history or review of systems. On examination patient is a well-developed well-nourished elderly male in no acute distress. No cyanosis or diaphoresis. Mucous membranes are moist. Breath sounds are clear and equal bilaterally. Heart regular. Abdomen soft with normal bowel sounds. Labs reviewed. Troponin 0.11 which appears to be baseline for patient. Positive for influenza A. Also noted to have a significant urinary tract infection. Chest x-ray negative. The hospitalist, Dr. Saunders, was consulted and accepted the admission of the patient.
[2017-08-05 02:20] LABS: Alanine Aminotransferase 28 Units/L (7-52); Albumin 3.5 g/dL (3.5-5.7); Alkaline Phosphatase 88 Units/L (34-104); Aspartate Amino Transferase 27 Units/L (13-39); BUN/Creatinine Ratio 41 (6-26); Bilirubin,Direct 0.1 mg/dL (0.0-0.2); Bilirubin,Indirect 0.2 mg/dL (0.0-1.2); Bilirubin,Total 0.3 mg/dL (0.3-1.0); Blood Urea Nitrogen 30 mg/dL (8-23); Calcium 9.6 mg/dL (8.6-10.3); Carbon Dioxide 25 mEq/L (23-29); Chloride 103 mEq/L (98-107); Globulin 3.4 g/dL (2.4-3.5); Glucose 182 mg/dL (70-105); Magnesium 1.9 mg/dL (1.6-2.6); Osmolality,Calculated 291 (280-300); Potassium 4.3 mEq/L (3.5-5.1); Sodium 135 mEq/L (136-145); Total Protein 6.9 g/dL (6.4-8.9); eGFR For African Americans > 60 (> 60); eGFR For Non-African Americans > 60 (> 60)
[2017-08-05] MEDS ORDERED: cefTRIAXone 1,000 MG in Water for inj. (sterile) 20 ML 10 ML IVP ONE (02:24)
[2017-08-05 03:01] LABS: INR 1.2; Prothrombin Time 12.5 Seconds (9.4-12.1)
[2017-08-05 03:04] LABS: Activated Partial Thrombo Time 27.2 Seconds (26.0-36.0)
[2017-08-05] MEDS ORDERED: *HR* OxyCODONE Immed Rel 5 MG TABLET PO STA (03:33)
[2017-08-05] MEDS ORDERED: Ampicillin/Sulbactam 3,000 MG in 0.9 % Sodium Chloride Mini Bag 100 ML IVPB STA (03:45)
--- NOTE | 2017-08-05 04:54 | Emergency Department Note ---
START Narrative - START START: EKG shows atrial fibrillation with ventricular rate of 88. QRS 101. QTC 413. No significant ST elevations or depressions.
[2017-08-05] MEDS ORDERED: Naloxone 0.4 MG/ML INJ IVP PRN (05:04)
--- NOTE | 2017-08-05 05:21 | Internal Med History&Physical ---
Date of Encounter: 08/05/17 Time of Encounter: 04:45 Assessment and Plan (1) Elevated troponin Current visit: Yes Status: Acute Pt has chronic elevated troponin. Denies chest pain. - Cont cardiac monitoring. - Track 3 sets of troponin (2) DVT prophylaxis Current visit: No Status: Acute Heparin SC (3) Pneumonia Current visit: Yes Status: Suspected Pt has cough, fever, swallow deficit, although CXR negative, suspect early aspiration pneumonia. - Will cover pt with unasyn. F/U blood culture Qualifiers: Pneumonia type: aspiration pneumonia Aspiration pneumonia type: unspecified Laterality: unspecified laterality Lung location: unspecified part of lung Qualified Code(s): J69.0 - Pneumonitis due to inhalation of food and vomit (4) Atrial fibrillation Current visit: No Status: Acute HR is well controlled. Pt is only on ASA and plevix at home, not on AC. Will cont home meds after varification. Qualifiers: Atrial fibrillation type: unspecified Qualified Code(s): I48.91 - Unspecified atrial fibrillation (5) Influenza Current visit: Yes Status: Acute Flu A positive. Will finish 5 days of Tamiflu. (6) UTI (urinary tract infection) Current visit: Yes Status: Acute Pt is on unasyn now. F/U urine Cx Qualifiers: Urinary tract infection type: site unspecified Hematuria presence: without hematuria Qualified Code(s): N39.0 - Urinary tract infection, site not specified (7) History of CVA (cerebrovascular accident) Current visit: Yes Status: Acute Cont PT/OT and antiplatelet therapy. Internal Medicine - H&P: HPI Chief complaint: Fever Admitted From: Long-term Nursing Facility Plans for Post Hospital Care: Transfer Inp Rehab Fac History of present illness: Mr. 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 Pt is not able to communicate. Hx was obtained by his . Pt has CVA about 5 Months ago, was discharged to rehab, wheelchair bound now. Has PEG tube but sometimes has oral feeding with soft food. Family was called that pt has fever in rehab center. Pt was sent here and in ER T is 101.7. CXR negative but pt has nonproductive cough. Pt was found Flu A positive. Pt has no chest pain but troponin is 0.11. Pt was admitted for further management. Past Med Surg Social Fam HX - Past Medical History Medical history: diabetes, GERD, myocardial infarction, atrial fibrillation, hypertension, other, coronary artery disease Psychiatric history: no psych history - Past Surgical History Surgical History: cataract, orthopedic, other, angioplasty/stent - Social History Smoking Status: Former smoker Smokeless Tobacco Status: No Alcohol use: none Drug use: none - Family History Mother Living Status: Hx Family Cardiac Disorders: No Hx Family Respiratory Disorders: No Hx Family Cancer: Yes Hx Family GI Disorders: No Hx Family Endocrine Disorder: No Hx Family Neuromuscular Disorders: No Hx Family Neurologic Disorders: No Hx Family HEENT Disorders: No Hx Family Autoimmune Disorders: No Internal Medicine - H&P: Meds Alfuzosin HCl [Uroxatral] 10 mg PO DAILY 01/20/17 [History] Allopurinol [Zyloprim 300 MG] 300 mg PO DAILY 01/20/17 [History] Aspirin 81 mg PO DAILY 01/20/17 [History] Ferrous Sulfate 325 mg PO DAILY 01/20/17 [History] Finasteride [Proscar] 5 mg PO DAILY 01/20/17 [History] Gabapentin [Neurontin] 300 mg PO HS 01/20/17 [History] Lisinopril [Zestril] 20 mg PO BID 01/20/17 [History] Multivitamin [Multi-Day Vitamins] 1 each PO DAILY 01/20/17 [History] Simvastatin [Zocor] 20 mg PO HS 01/20/17 [History] Meclizine [Antivert] 25 mg PO PRN 01/22/17 [History] Carvedilol 12.5 mg PO BID #60 tab 01/23/17 [Rx] Clopidogrel [Plavix] 75 mg PO DAILY #30 tablet 01/23/17 [Rx] 3 Allergy/AdvReac Type Severity Reaction Status Date / Time No Known Allergies Allergy Verified 03/26/15 12:25 All Systems PM: A 10-system review of systems was performed and is negative for pertinent findings except as documented above in the HPI. - Constitutional Vitals: Temp Pulse Resp BP Pulse Ox 99.7 F H 80 18 128/78 97 08/05/17 01:19 08/05/17 04:21 08/05/17 04:21 08/05/17 04:21 08/05/17 04:21 General appearance: Present: A&O X 1, no acute distress - Head Head exam: Present: atraumatic, normocephalic - Eye Eye exam: Present: PERRL, conjuntiva pink, sclera anicteric Pupils: Present: PERRL - Neck Neck exam general surgery: Present: supple, trachea midline. Absent: lymphadenopathy - Respiratory Respiratory exam: Present: CTAB. Absent: accessory muscle use, rales, rhonchi, wheezes - Cardiovascular Cardiovascular exam: Present: RRR, +S1, +S2. Absent: diastolic murmur, gallop, rubs, systolic murmur - GI/Abdominal GI/Abdominal exam: Present: normal bowel sounds, soft, no peritoneal signs. Absent: distended, tenderness - Extremities Exam Extremities exam: Present: warm, radial pulses palpable and symmetrical. Absent : calf tenderness, cyanotic, pedal edema - Neurological Exam Neurological exam: Present: CN II-XII intact, motor sensory deficit (Right side hemiplegia), no focal deficits, facial droop (Right facial drop), speech deficit - Skin Skin exam: Present: dry, intact Internal Med - H&P Results - Labs CBC & Chem 7: 08/05/17 01:49 08/05/17 01:49
[2017-08-05] MEDS: 0.9 % Sodium Chloride 1,000 ML IVC SCH ×2 (05:26→18:23)
[2017-08-05] MEDS: *HR* Heparin 5,000 UNIT/ML VIAL SQ SCH ×2 (05:27→18:25)
--- NOTE | 2017-08-05 08:40 | Internal Med Progress Note ---
<Jung Hoffman - Last Filed: 08/05/17 10:42> Date of Encounter: 08/05/17 Time of Encounter: 08:40 - Assessment and plan (1) UTI (urinary tract infection) Current Visit: Yes Status: Acute Assessment and plan: Patient's vital signs stable. UA demonstrated likely UTI. Pending urine culture and blood cultures. Continue with unasyn day 1 Qualifiers: Urinary tract infection type: site unspecified Hematuria presence: without hematuria Qualified Code(s): N39.0 - Urinary tract infection, site not specified (2) Influenza A Current Visit: Yes Status: Acute Assessment and plan: Influenza A+. Continue with Tamiflu day #1. Continue IV fluids. (3) Elevated troponin Current Visit: Yes Status: Acute Assessment and plan: The patient has chronically elevated troponins. Likely from demand ischemia. No cardiac intervention required at this time. (4) Hypertension Current Visit: No Status: Acute Assessment and plan: Stable and well-controlled. Continue with home medications. Qualifiers: Hypertension type: essential hypertension Qualified Code(s): I10 - Essential (primary) hypertension (5) DVT prophylaxis Current Visit: No Status: Acute Assessment and plan: Continue heparin 5000 SQ BID for DVT prophylaxis (6) Diabetes Current Visit: No Status: Chronic Assessment and plan: SSI Qualifiers: Diabetes mellitus type: type 2 Diabetes mellitus complication status: without complication Diabetes mellitus intermediate insulin use: without intermediate use Qualified Code(s): E11.9 - Type 2 diabetes mellitus without complications (7) Atrial fibrillation Current Visit: No Status: Acute Assessment and plan: Continue with home medications aspirin and Plavix. Need to verify an update patient's home medications. Qualifiers: Atrial fibrillation type: unspecified Qualified Code(s): I48.91 - Unspecified atrial fibrillation (8) History of CVA (cerebrovascular accident) Current Visit: Yes Status: Acute - Time Spent With Patient Greater than 35 minutes - Subjective Interval history: 86-year-old male with history of A. 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 The patient is unable to communicate. History obtained from his . Temperature at the [place] 101.7, troponin trending up (0.14<0.11) RIP demonstrated positive influenza A and he was started on Tamiflu and Unasyn. Today, is at bedside. She reports that the patient has had difficulty swallowing for last 3 days. Reports that his right hand has been more swollen than usual. That patient has been complaining of being cold. Patient has not experienced any vomiting, diarrhea. Has not had any by mouth intake for the last 2 days. - Constitutional Vitals: Temp Pulse Resp BP Pulse Ox 97.9 F 73 14 135/69 96 08/05/17 05:23 08/05/17 05:23 08/05/17 05:23 08/05/17 05:23 08/05/17 05:23 General appearance: Present: A&O X 0. Absent: no acute distress (Physical) Exam: Patient grunts with light palpation of anterior chest. - Head Head exam: Present: atraumatic, normocephalic - Eye Eye exam: Present: normal appearance - ENT Additional comments: Unable to perform due to patient's agitation. - Neck Neck exam general surgery: Present: normal inspection, supple, trachea midline - Respiratory Respiratory exam: Present: decreased breath sounds - Cardiovascular Cardiovascular exam: Present: distant heart sounds, +S1, +S2 - GI/Abdominal GI/Abdominal exam: Present: hypoactive bowel sounds, soft, no peritoneal signs. Absent: bruit, guarding Additional comments: Peg tube present. Incision site clean and dry. - Extremities Exam Extremities exam: Present: warm, radial pulses palpable and symmetrical. Absent : pedal edema Additional comments: Right upper extremity 2+ nonpitting edema noted - Neurological Exam Neurological exam: Present: altered Additional comments: Right sided hemiplegia noted. - Skin Skin exam: Present: intact, warm. Absent: rash Internal Medicine: Result - Labs CBC & Chem 7: 08/05/17 01:49 08/05/17 01:49 Labs: Cardiac Enzymes 08/05/17 Range/Units 05:27 Troponin I 0.14 H* (< 0.04) ng/mL - ABG Interpretation ABG results: PT/INR, D-dimer PT 12.5 Seconds (9.4-12.1) H 08/05/17 02:42 Consult Discharge Plan - Plan Referrals: Hasmukh Esteves DO [Primary Care Provider] - <Quoc Anderson H - Last Filed: 08/05/17 12:54> Date of Encounter: 08/05/17 - Constitutional Vitals: Temp Pulse Resp BP Pulse Ox 97.9 F 73 14 135/69 96 08/05/17 05:23 08/05/17 05:23 08/05/17 05:23 08/05/17 05:23 08/05/17 05:23 Internal Medicine: Result - Labs CBC & Chem 7: 08/05/17 01:49 08/05/17 01:49 Labs: Cardiac Enzymes 08/05/17 Range/Units 05:27 Troponin I 0.14 H* (< 0.04) ng/mL - ABG Interpretation ABG results: PT/INR, D-dimer PT 12.5 Seconds (9.4-12.1) H 08/05/17 02:42 - Attending Attestation Continue Unasyn due to possible aspiration pneumonitis I examined this patient and my medical decision-making was reviewed with the Resident Physician. I agree with the documented findings, disposition and treatment plan as described except to the extent set forth below.
[2017-08-05] MEDS: Ampicillin/Sulbactam 3,000 MG in 0.9 % Sodium Chloride Mini Bag 100 ML IVPB SCH ×2 (09:21→18:24)
[2017-08-05] MEDS ORDERED: Aspirin 81 MG TAB.CHEW PO SCH (10:45)
[2017-08-05] MEDS ORDERED: Lisinopril 20 MG TABLET PO SCH (10:45)
[2017-08-05] MEDS ORDERED: Finasteride 5 MG TABLET PO SCH (10:45)
[2017-08-05] MEDS ORDERED: Dextrose Gel 15 GM/37.5 ML TUBE PO PRN ×2 (12:38)
[2017-08-05] MEDS ORDERED: *HR* Dextrose 50 % in Water (Syg) 50 ML SYRINGE IVP PRN (12:38)
[2017-08-05] MEDS ORDERED: D5% in Water 1,000 ML IVC PRN (12:38)
[2017-08-05] MEDS: Acetaminophen 650 MG RECTAL SUPP RC PRN ×2 (13:52→18:27)
[2017-08-05] MEDS: Insulin LISPRO 300 UNITS/3 ML VIAL SQ SCH ×3 (18:18→21:27)
[2017-08-05] MEDS: Lisinopril 20 MG TABLET GTUBE SCH (21:26)
[2017-08-06] MEDS: Ampicillin/Sulbactam 3,000 MG in 0.9 % Sodium Chloride Mini Bag 100 ML IVPB SCH ×4 (00:20→17:32)
[2017-08-06] MEDS: *HR* Heparin 5,000 UNIT/ML VIAL SQ SCH ×2 (05:20→17:33)
[2017-08-06 05:44] LABS: Basophils % 0.6 %; Eosinophils # 0.3 K/mcL (0.0-0.6); Eosinophils % 3.8 %; Hematocrit 30.3 % (37.5-50.1); Immature Granulocytes % 0.3 % (0-4); Lymphocytes # 1.5 K/mcL (0.6-4.6); Lymphocytes % 22.5 %; Mean Corpuscular Hemoglobin 30.5 pg (28.0-33.3); Mean Corpuscular Volume 92.4 fL (83.0-100.0); Mean Platelet Volume 10.2 fL (9.4-12.4); Monocytes # 1.2 K/mcL (0.0-1.3); Monocytes % 18.1 %; Neutrophils # 3.7 K/mcL (1.6-8.9); Platelet Count 173 K/mcL (140-400); Red Blood Count 3.28 M/mcL (4.19-5.50); Red Cell Distribution Width 15.6 % (11.5-14.5); Segmented Neutrophils % 54.7 %
[2017-08-06 05:56] LABS: BUN/Creatinine Ratio 35 (6-26); Blood Urea Nitrogen 24 mg/dL (8-23); Calcium 8.5 mg/dL (8.6-10.3); Carbon Dioxide 25 mEq/L (23-29); Chloride 106 mEq/L (98-107); Glucose 184 mg/dL (70-105); Magnesium 1.7 mg/dL (1.6-2.6); Osmolality,Calculated 291 (280-300); Potassium 3.8 mEq/L (3.5-5.1); Sodium 136 mEq/L (136-145); eGFR For African Americans > 60 (> 60); eGFR For Non-African Americans > 60 (> 60)
[2017-08-06 06:04] LABS: Platelet Estimate Normal (Normal)
[2017-08-06] MEDS: Aspirin 81 MG TAB.CHEW GTUBE SCH (08:24)
[2017-08-06] MEDS: Finasteride 5 MG TABLET PO SCH (08:25)
[2017-08-06] MEDS: Lisinopril 20 MG TABLET GTUBE SCH ×2 (08:25→21:53)
[2017-08-06] MEDS: Insulin LISPRO 300 UNITS/3 ML VIAL SQ SCH ×4 (08:25→21:49)
--- NOTE | 2017-08-06 08:40 | Internal Med Progress Note ---
Date of Encounter: 08/06/17 Time of Encounter: 09:00 - Assessment and plan (1) Influenza A Current Visit: Yes Status: Acute Assessment and plan: Influenza A+. Continue with Tamiflu day #2. Continue IV fluids. (2) UTI (urinary tract infection) Current Visit: No Status: Acute Assessment and plan: Patient's vital signs stable. UA demonstrated likely UTI. Urine culture was not performed due to specimen containing many squamous epithelial cells. Obtain urine specimen via catheter today and follow-up on urine culture. RN at bedside is made aware Qualifiers: Urinary tract infection type: site unspecified Hematuria presence: without hematuria Qualified Code(s): N39.0 - Urinary tract infection, site not specified (3) Fever Current Visit: Yes Status: Acute Assessment and plan: Patient had multiple episodes of elevated temperature up to 103F. He receive 2 doses of 650 mg acetaminophen and current temperature is stable. Fever likely secondary to UTI versus aspiration pneumonia and influenza. Blood culture negative 2. Urine culture pending. Continue with Unasyn day #2 and Tamiflu day #2. Continue with IV fluids. Acetaminophen as needed for T> 100.4F Qualifiers: Qualified Code(s): R50.9 - Fever, unspecified (4) Aspiration pneumonia Current Visit: Yes Status: Acute Assessment and plan: Patient's reports that symptoms started when patient tried to have soft fluid intake. Chest x-ray is negative and blood culture negative 2. Aspiration pneumonia is low in the differential, but due to the patient's history, he can be showing early signs of aspiration pneumonia. All medications switched to G-tube. Continue cover with Unasyn day #2. Continue tube feedings. Qualifiers: Qualified Code(s): J69.0 - Pneumonitis due to inhalation of food and vomit (5) Edema of right forearm Current Visit: Yes Status: Acute Assessment and plan: Per , this is a new presentation. Follow-up on right forearm x-ray. (6) Elevated troponin Current Visit: No Status: Acute Assessment and plan: The patient has chronically elevated troponins. Likely from demand ischemia. No cardiac intervention required at this time. No need to keep trending troponin (7) Hypertension Current Visit: No Status: Acute Assessment and plan: Well-controlled. Continue with current blood pressure medications. Qualifiers: Hypertension type: essential hypertension Qualified Code(s): I10 - Essential (primary) hypertension (8) Diabetes Current Visit: No Status: Chronic Assessment and plan: Continue with SSI. Patient's last A1c was 3 years ago and normal. Recheck A1c at a.m. labs Qualifiers: Diabetes mellitus type: type 2 Diabetes mellitus complication status: without complication Diabetes mellitus mcc insulin use: without health systems analyst use Qualified Code(s): E11.9 - Type 2 diabetes mellitus without complications (9) Atrial fibrillation Current Visit: No Status: Acute Assessment and plan: Continue with home medications aspirin and Plavix. Qualifiers: Atrial fibrillation type: unspecified Qualified Code(s): I48.91 - Unspecified atrial fibrillation (10) History of CVA (cerebrovascular accident) Current Visit: No Status: Acute Assessment and plan: Continue with home medications (11) DVT prophylaxis Current Visit: No Status: Acute Assessment and plan: Continue heparin 5000 SQ BID for DVT prophylaxis - Time Spent With Patient Greater than 35 minutes - Subjective Interval history: 86-year-old male with history of A. 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 Temperature at the ER is 101.7. his troponins are chronically elevated. RIP demonstrated positive influenza A and he was started on Tamiflu, and Unasyn for aspiration pneumonitis. Patient has not experienced any vomiting, diarrhea. All medications have been switched to G -tube. Patient had multiple episodes of high temperature(100.1F to 103F) yesterday and received 2 doses of 650 mg Tylenol. He does not have any complaints of fever, chills. Patient's is not at bedside, but patient is more alert today and able to follow verbal commands. He is able to nod and shake his head to answer my questions. - Constitutional Vitals: Temp Pulse Resp BP Pulse Ox 98.8 F 79 16 123/67 95 08/06/17 04:51 08/06/17 04:51 08/06/17 04:51 08/06/17 04:51 08/06/17 04:51 General appearance: Present: no acute distress (Physical) Exam: Patient is alert. Baseline is unable to communicate verbally. He is able to answer my questions by nodding and shaking his head. He responds to verbal commands. - Head Head exam: Present: atraumatic, normocephalic - Eye Eye exam: Present: PERRL, conjuntiva pink, sclera anicteric Pupils: Present: PERRL - Neck Neck exam general surgery: Present: supple, trachea midline. Absent: lymphadenopathy - Respiratory Respiratory exam: Present: CTAB. Absent: accessory muscle use, rales, rhonchi, wheezes - Cardiovascular Cardiovascular exam: Present: RRR, +S1, +S2. Absent: diastolic murmur, gallop, rubs, systolic murmur - GI/Abdominal GI/Abdominal exam: Present: distended, normal bowel sounds, soft, no peritoneal signs. Absent: tenderness Additional comments: PEG tube noted. Clean and dry. No signs of infection. - Extremities Exam Extremities exam: Present: warm, radial pulses palpable and symmetrical Additional comments: Right-sided hemiplegia noted. Right forearm nonpitting edema noted. - Incison Comments: PEG tube is clean and dry. - Neurological Exam Neurological exam: Present: alert, speech deficit. Absent: facial droop Additional comments: Right-sided hemiplegia noted - Skin Skin exam: Present: erythema, intact, normal color, warm Internal Medicine: Result - Labs CBC & Chem 7: 08/06/17 05:11 08/06/17 05:11 Labs: Short CBC 08/06/17 Range/Units 05:11 WBC 6.8 (4.3-11.1) K/mcL Hgb 10.0 L (12.9-16.9) g/dL Hct 30.3 L (37.5-50.1) % Plt Count 173 (140-400) K/mcL Neutrophils # 3.7 (1.6-8.9) K/mcL BMP 08/06/17 05:11 Sodium 136 Potassium 3.8 Chloride 106 Carbon Dioxide 25 BUN 24 H Creatinine 0.69 L Glucose 184 H Calcium 8.5 L Cardiac Enzymes 08/05/17 Range/Units 11:50 Troponin I 0.16 H* (< 0.04) ng/mL - ABG Interpretation ABG results: PT/INR, D-dimer PT 12.5 Seconds (9.4-12.1) H 08/05/17 02:42 Consult Discharge Plan - Plan Referrals: Hasmukh Esteves DO [Primary Care Provider] -
[2017-08-06 09:07] LABS: Hemoglobin A1C 7.2 %
[2017-08-06] MEDS: Oseltamivir 6 MG/ML UDC GTUBE SCH ×2 (09:36→21:52)
[2017-08-06] MEDS: Ferrous Sulfate Oral Soln 300 MG/5 ML UDC GTUBE SCH (12:39)
[2017-08-06 13:33] LABS: Bilirubin,Urine Negative (Negative); Blood,Urine Negative (Negative); Clarity,Urine Clear (Clear); Color,Urine Yellow (Yellow); Glucose,Urine (UA) Normal (Normal); Ketones,Urine Negative (Negative); Leukocyte Esterase,Urine Small (Negative); Nitrite,Urine Negative (Negative); PH,Urine 6.5 pH Units (5.0-8.0); Protein,Urine Trace mg/dL (Neg-Trace); Specific Gravity,Urine 1.025 (1.010-1.025); Urobilinogen,Urine Normal (Normal)
[2017-08-06 13:35] LABS: Bacteria,Urine None Seen per hpf (None-Few); Hyaline Casts,Urine None Seen per lpf (None-Few); Squamous Epithelial Cell,Urine Many per lpf (None-Few)
[2017-08-07] MEDS: Ampicillin/Sulbactam 3,000 MG in 0.9 % Sodium Chloride Mini Bag 100 ML IVPB SCH ×4 (00:28→22:17)
[2017-08-07] MEDS: *HR* Heparin 5,000 UNIT/ML VIAL SQ SCH ×2 (06:25→18:16)
[2017-08-07 06:49] LABS: Basophils % 0.6 %; Eosinophils # 0.5 K/mcL (0.0-0.6); Eosinophils % 6.9 %; Hematocrit 31.3 % (37.5-50.1); Hemoglobin 10.2 g/dL (12.9-16.9); Immature Granulocytes % 0.7 % (0-4); Lymphocytes # 1.4 K/mcL (0.6-4.6); Lymphocytes % 20.1 %; Mean Corpuscular HGB Conc 32.6 g/dL (31.6-35.5); Mean Corpuscular Hemoglobin 29.9 pg (28.0-33.3); Mean Corpuscular Volume 91.8 fL (83.0-100.0); Mean Platelet Volume 10.5 fL (9.4-12.4); Monocytes % 14.3 %; Neutrophils # 4.1 K/mcL (1.6-8.9); Platelet Count 169 K/mcL (140-400); Red Blood Count 3.41 M/mcL (4.19-5.50); Red Cell Distribution Width 15.8 % (11.5-14.5); Segmented Neutrophils % 57.4 %
[2017-08-07 07:00] LABS: BUN/Creatinine Ratio 38 (6-26); Blood Urea Nitrogen 21 mg/dL (8-23); Calcium 8.5 mg/dL (8.6-10.3); Carbon Dioxide 27 mEq/L (23-29); Chloride 106 mEq/L (98-107); Glucose 174 mg/dL (70-105); Osmolality,Calculated 295 (280-300); Potassium 4.1 mEq/L (3.5-5.1); Sodium 139 mEq/L (136-145); eGFR For African Americans > 60 (> 60); eGFR For Non-African Americans > 60 (> 60)
[2017-08-07] MEDS: Aspirin 81 MG TAB.CHEW GTUBE SCH (09:29)
[2017-08-07] MEDS: Lisinopril 20 MG TABLET GTUBE SCH ×2 (09:29→22:16)
[2017-08-07] MEDS: Finasteride 5 MG TABLET PO SCH (09:30)
[2017-08-07] MEDS: Insulin LISPRO 300 UNITS/3 ML VIAL SQ SCH ×4 (09:30→22:05)
[2017-08-07] MEDS: Ferrous Sulfate Oral Soln 300 MG/5 ML UDC GTUBE SCH (09:30)
[2017-08-07] MEDS: Oseltamivir 6 MG/ML UDC GTUBE SCH ×2 (09:30→22:17)
--- NOTE | 2017-08-07 10:14 | Discharge Summary ---
<YasminJung - Last Filed: 08/07/17 10:32> Date of Encounter: 08/07/17 Time of Encounter: 10:00 - Discharge Diagnosis (1) Aspiration pneumonia Priority: Primary Status: Acute Qualifiers: Aspiration pneumonia type: due to regurgitated food Qualified Code(s): J69.0 - Pneumonitis due to inhalation of food and vomit (2) Influenza A Priority: Primary Status: Acute (3) UTI (urinary tract infection) Priority: Secondary Status: Acute Qualifiers: Urinary tract infection type: site unspecified Hematuria presence: without hematuria Qualified Code(s): N39.0 - Urinary tract infection, site not specified (4) Edema of right forearm Priority: Secondary Status: Acute (5) Elevated troponin Priority: Secondary Status: Acute (6) Hypertension Priority: Secondary Status: Acute Qualifiers: Hypertension type: essential hypertension Qualified Code(s): I10 - Essential (primary) hypertension (7) Diabetes Priority: Secondary Status: Chronic Qualifiers: Diabetes mellitus type: type 2 Diabetes mellitus complication status: without complication Diabetes mellitus long-term insulin use: without equipment operator intermodal yard use Qualified Code(s): E11.9 - Type 2 diabetes mellitus without complications (8) Atrial fibrillation Priority: Secondary Status: Acute Qualifiers: Atrial fibrillation type: unspecified Qualified Code(s): I48.91 - Unspecified atrial fibrillation (9) History of CVA (cerebrovascular accident) Priority: Secondary Status: Acute - Discharge Medications Prescriptions: Amoxicillin/Clavulanate [Augmentin] 875 mg PO BIDWM 5 Days #10 tablet Oseltamivir [Tamiflu] 75 mg PO BID 3 Days #6 capsule Home Medications: Allopurinol [Zyloprim 300 MG] 300 mg GTUBE DAILY 01/20/17 [History] Aspirin 81 mg GTUBE DAILY 01/20/17 [History] Gabapentin [Neurontin] 300 mg GTUBE HS 01/20/17 [History] Lisinopril [Zestril] 20 mg GTUBE DAILY 01/20/17 [History] Multivitamin [Multi-Day Vitamins] 1 tab GTUBE DAILY 01/20/17 [History] Simvastatin [Zocor] 20 mg GTUBE QPM 01/20/17 [History] Clopidogrel [Plavix] 75 mg PO DAILY #30 tablet 01/23/17 [Rx] Acetaminophen [Tylenol] 650 mg GTUBE TID PRN 08/06/17 [History] Carvedilol [Coreg] 12.5 mg GTUBE DAILY 08/06/17 [History] Insulin Glargine,Hum.rec.anlog [Lantus Solostar] 4 unit SQ HS 08/06/17 [History] Isosorbide MONOnitrate (24 HR) [Imdur] 30 mg PO DAILY 08/06/17 [History] Melatonin 6 mg GTUBE HS PRN 08/06/17 [History] Mirtazapine [Remeron] 15 mg PO HS 08/06/17 [History] Scopolamine [Transderm-Scop] 1 patch TD Q72H 08/06/17 [History] Amoxicillin/Clavulanate [Augmentin] 875 mg PO BIDWM 5 Days #10 tablet 08/07/17 [ Rx] Oseltamivir [Tamiflu] 75 mg PO BID 3 Days #6 capsule 08/07/17 [Rx] Allergies/Adverse Reactions: 3 Allergy/AdvReac Type Severity Reaction Status Date / Time No Known Allergies Allergy Verified 03/26/15 12:25 Procedures/tests Complete & Pending: Procedures Performed prior 72 hours Category Date Time Status Venous Doppler [EV venous imaging UE RT] Routine Y 08/06/17 09:29 Completed Date of admission: 08/05/17 05:04 Primary care physician: Nathalie Park Consults: 08/05/17 05:08 consult to carrier blower [Consult to Nutrition] [CONS] Routine Comment: Consulting Provider: NUTRITION Reason for Dietary Consult: Tube Feed Start & Manage Discharging clinician: Jung Hoffman Anticipated date of discharge: 08/07/17 - Patient Status Disposition: Transfer SNF Condition: Good Functional capacity at discharge: bed bound Overall status at discharge: patient is back to baseline - Discharge Instructions Follow Up With: Hasmukh Esteves DO [Primary Care Provider] - 08/10/17 12:00 pm - Diet and Activity Activity: resume usual activities as tolerated Diet: advance to your usual diet, other (G-tube feeings ) Hospital course: Mr. Drew is a 86 year old male past medical history of A. 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 Patient is not able to communicate and history was obtained by his , who reports that symptoms started when patient tried to swallow soft food. Chest x-ray demonstrated no acute disease, but patient was started on Unasyn due to history. Troponins were chronically elevated, and patient denied chest pain. Influenza screen was positive for influenza A and patient was started on Tamiflu. Urine analysis was contaminated, and urine culture was not able to be performed due to specimen containing high levels of squamous epithelial cells. unilateral upper extremity venous duplex exam was completed due to new onset of right arm swelling and demonstrated no DVT on the right upper extremity. Patient returned to baseline on day 2 of admission Today , he is more alert and oriented. He is able to follow verbal commands. Fever has resolved and cough is improved. Patient has no further complaints. Plan is to discharge patient back [facility] his [facility] with Tamiflu 75mg for 3 more days and Augmentin 875mg BID for 2 more days. Patient demonstrates understanding and is agreeable to plan. - Time Spent with Patient Total time spent providing and/or coordinating discharge services: Greater than 30 minutes - Constitutional Vitals: Temp Pulse Resp BP Pulse Ox 97.6 F 71 16 153/72 97 08/07/17 08:37 08/07/17 08:37 08/07/17 08:37 08/07/17 08:37 08/07/17 08:37 General appearance: Present: no acute distress (Physical) - Head Head exam: Present: atraumatic, normocephalic - Eye Eye exam: Present: PERRL, conjuntiva pink, sclera anicteric Pupils: Present: PERRL - Neck Neck exam general surgery: Present: supple, trachea midline. Absent: lymphadenopathy - Respiratory Respiratory exam: Present: CTAB. Absent: accessory muscle use, rales, rhonchi, wheezes - Cardiovascular Cardiovascular exam: Present: distant heart sounds, +S1, +S2. Absent: diastolic murmur, gallop, rubs, systolic murmur - GI/Abdominal GI/Abdominal exam: Present: normal bowel sounds, soft, no peritoneal signs. Absent: distended, tenderness Additional comments: PEG tube clean and dry. - Extremities Exam Extremities exam: Present: warm, radial pulses palpable and symmetrical. Absent : calf tenderness, cyanotic, pedal edema Additional comments: right sided hemiplegia noted. - Neurological Exam Neurological exam: Present: CN II-XII intact, oriented X3, no focal deficits. Absent: pronater drift, facial droop, speech deficit - Skin Skin exam: Present: dry, intact <Quoc Anderson Dandy - Last Filed: 08/07/17 10:45> Date of Encounter: 08/07/17 Procedures/tests Complete & Pending: Procedures Performed prior 72 hours Category Date Time Status Venous Doppler [EV venous imaging UE RT] Routine Y 08/06/17 09:29 Completed Date of admission: 08/05/17 05:04 Primary care physician: Nathalie Park Consults: 08/05/17 05:08 consult to carrier blower [Consult to Nutrition] [CONS] Routine Comment: Consulting Provider: NUTRITION Reason for Dietary Consult: Tube Feed Start & Manage Hospital course: Mr. Drew is a 86 year old male - Time Spent with Patient Total time spent providing and/or coordinating discharge services: - Constitutional Vitals: Temp Pulse Resp BP Pulse Ox 97.6 F 71 16 153/72 97 08/07/17 08:37 08/07/17 08:37 08/07/17 08:37 08/07/17 08:37 08/07/17 08:37 - Attending Attestation Aspiration pneumonia present upon admission, influenza A pneumonia Correction: The patient will be sent with a prescription for 5 more days of Augmentin twice a day Complete doses of Tamiflu Time spent on this discharge 40 minutes Aspiration precautions I examined this patient and my medical decision-making was reviewed with the Resident Physician. I agree with the documented findings, disposition and treatment plan as described except to the extent set forth below.
--- NOTE | 2017-08-07 10:41 | Physician Discharge Referral ---
<Jung Hoffman - Last Filed: 08/07/17 10:42> ExtendedCare Referral Info Provider in Charge: Quoc Villagomez Provider in Charge after Transfer: Other (SNF) Institutional Level of Care: Skilled - Diagnosis (1) Aspiration pneumonia Priority: Primary Status: Acute (2) Influenza A Priority: Primary Status: Acute (3) UTI (urinary tract infection) Priority: Secondary Status: Acute (4) Edema of right forearm Priority: Secondary Status: Acute (5) Elevated troponin Priority: Secondary Status: Acute (6) Hypertension Priority: Secondary Status: Acute (7) Diabetes Priority: Secondary Status: Chronic (8) Atrial fibrillation Priority: Secondary Status: Acute (9) History of CVA (cerebrovascular accident) Priority: Secondary Status: Acute Prognosis: Good Aware of Diagnosis: Patient, Family Aware of Prognosis: Patient - Transfer Medications Prescriptions: Amoxicillin/Clavulanate [Augmentin] 875 mg PO BIDWM 5 Days #10 tablet Oseltamivir [Tamiflu] 75 mg PO BID 3 Days #6 capsule Home Medications: Allopurinol [Zyloprim 300 MG] 300 mg GTUBE DAILY 01/20/17 [History] Aspirin 81 mg GTUBE DAILY 01/20/17 [History] Gabapentin [Neurontin] 300 mg GTUBE HS 01/20/17 [History] Lisinopril [Zestril] 20 mg GTUBE DAILY 01/20/17 [History] Multivitamin [Multi-Day Vitamins] 1 tab GTUBE DAILY 01/20/17 [History] Simvastatin [Zocor] 20 mg GTUBE QPM 01/20/17 [History] Clopidogrel [Plavix] 75 mg PO DAILY #30 tablet 01/23/17 [Rx] Acetaminophen [Tylenol] 650 mg GTUBE TID PRN 08/06/17 [History] Carvedilol [Coreg] 12.5 mg GTUBE DAILY 08/06/17 [History] Insulin Glargine,Hum.rec.anlog [Lantus Solostar] 4 unit SQ HS 08/06/17 [History] Isosorbide MONOnitrate (24 HR) [Imdur] 30 mg PO DAILY 08/06/17 [History] Melatonin 6 mg GTUBE HS PRN 08/06/17 [History] Mirtazapine [Remeron] 15 mg PO HS 08/06/17 [History] Scopolamine [Transderm-Scop] 1 patch TD Q72H 08/06/17 [History] Amoxicillin/Clavulanate [Augmentin] 875 mg PO BIDWM 5 Days #10 tablet 08/07/17 [ Rx] Oseltamivir [Tamiflu] 75 mg PO BID 3 Days #6 capsule 08/07/17 [Rx] Allergies/Adverse Reactions: 3 Allergy/AdvReac Type Severity Reaction Status Date / Time No Known Allergies Allergy Verified 03/26/15 12:25 - Respiratory Orders None Smoking Cessation: Smoking cessation has been advised. For more information, call the [facility] Quit Line at 3-971-HZHJ-NOW. - Mobility Orders Bedrest - Diet Orders Regular CERTIFICATION: I certify that the transfer of the above named patient to an Extended Care Facility is necessary for the continuing treatment of the diagnosis listed. The above information is true and accurate reflection of patient's current condition. Confidential - Redisclosure prohibited without a patient's written consent. <Quoc Anderson H - Last Filed: 08/07/17 10:45> - Respiratory Orders Smoking Cessation: Smoking cessation has been advised. For more information, call the [facility] Quit Line at [phone]-HWIONOW. CERTIFICATION: I certify that the transfer of the above named patient to an Extended Care Facility is necessary for the continuing treatment of the diagnosis listed. The above information is true and accurate reflection of patient's current condition. Confidential - Redisclosure prohibited without a patient's written consent.
[2017-08-07] MEDS ORDERED: Haloperidol Lactate 5 MG/ML VIAL IM ONE (10:43)
[2017-08-07] MEDS ORDERED: Haloperidol Lactate 5 MG/ML VIAL IVP ONE (18:58)
[2017-08-08] MEDS: Ampicillin/Sulbactam 3,000 MG in 0.9 % Sodium Chloride Mini Bag 100 ML IVPB SCH ×3 (02:58→09:03)
[2017-08-08] MEDS: *HR* Heparin 5,000 UNIT/ML VIAL SQ SCH (05:02)
[2017-08-08] MEDS: Ferrous Sulfate Oral Soln 300 MG/5 ML UDC GTUBE SCH (09:03)
[2017-08-08] MEDS: Finasteride 5 MG TABLET PO SCH (09:04)
[2017-08-08] MEDS: Lisinopril 20 MG TABLET GTUBE SCH (09:04)
[2017-08-08] MEDS: Aspirin 81 MG TAB.CHEW GTUBE SCH (09:04)
[2017-08-08] MEDS: Insulin LISPRO 300 UNITS/3 ML VIAL SQ SCH (09:07)
--- NOTE | 2017-08-08 09:45 | Physician Discharge Referral ---
ExtendedCare Referral Info Transfer To: [facility] [[email or web address]] Provider in Charge: Kimani Najera Provider in Charge after Transfer: Other (Return to SNF) Institutional Level of Care: Skilled - Diagnosis (1) Aspiration pneumonia Priority: Primary Status: Acute (2) Influenza A Priority: Primary Status: Acute (3) UTI (urinary tract infection) Priority: Secondary Status: Acute (4) Edema of right forearm Priority: Secondary Status: Acute (5) Elevated troponin Status: Acute (6) Hypertension Priority: Secondary Status: Chronic (7) Diabetes Priority: Secondary Status: Chronic (8) Atrial fibrillation Priority: Secondary Status: Chronic (9) History of CVA (cerebrovascular accident) Priority: Secondary Status: Chronic Prognosis: Fair Aware of Diagnosis: Patient, Family Aware of Prognosis: Patient - Transfer Medications Prescriptions: Amoxicillin/Clavulanate [Augmentin] 875 mg PO BIDWM 5 Days #10 tablet Oseltamivir [Tamiflu] 75 mg PO BID 3 Days #6 capsule Home Medications: Allopurinol [Zyloprim 300 MG] 300 mg GTUBE DAILY 01/20/17 [History] Aspirin 81 mg GTUBE DAILY 01/20/17 [History] Gabapentin [Neurontin] 300 mg GTUBE HS 01/20/17 [History] Lisinopril [Zestril] 20 mg GTUBE DAILY 01/20/17 [History] Multivitamin [Multi-Day Vitamins] 1 tab GTUBE DAILY 01/20/17 [History] Simvastatin [Zocor] 20 mg GTUBE QPM 01/20/17 [History] Clopidogrel [Plavix] 75 mg PO DAILY #30 tablet 01/23/17 [Rx] Acetaminophen [Tylenol] 650 mg GTUBE TID PRN 08/06/17 [History] Carvedilol [Coreg] 12.5 mg GTUBE DAILY 08/06/17 [History] Insulin Glargine,Hum.rec.anlog [Lantus Solostar] 4 unit SQ HS 08/06/17 [History] Isosorbide MONOnitrate (24 HR) [Imdur] 30 mg PO DAILY 08/06/17 [History] Melatonin 6 mg GTUBE HS PRN 08/06/17 [History] Mirtazapine [Remeron] 15 mg PO HS 08/06/17 [History] Scopolamine [Transderm-Scop] 1 patch TD Q72H 08/06/17 [History] Amoxicillin/Clavulanate [Augmentin] 875 mg PO BIDWM 5 Days #10 tablet 08/07/17 [ Rx] Oseltamivir [Tamiflu] 75 mg PO BID 3 Days #6 capsule 08/07/17 [Rx] Allergies/Adverse Reactions: 3 Allergy/AdvReac Type Severity Reaction Status Date / Time No Known Allergies Allergy Verified 03/26/15 12:25 - Respiratory Orders Smoking Cessation: Smoking cessation has been advised. For more information, call the [place] [employer] Quit Line at 3-778-IUKINOW. CERTIFICATION: I certify that the transfer of the above named patient to an Extended Care Facility is necessary for the continuing treatment of the diagnosis listed. The above information is true and accurate reflection of patient's current condition. Confidential - Redisclosure prohibited without a patient's written consent.
--- NOTE | 2017-08-08 09:48 | Internal Med Progress Note ---
<Jung Hoffman - Last Filed: 08/08/17 09:45> Date of Encounter: 08/08/17 Time of Encounter: 09:30 - Assessment and plan (1) Aspiration pneumonia Status: Acute Assessment and plan: Improved. Patient is on day #2 of Unasyn. He continues to improve. Plan to discharge on Augmentin 875 mg by mouth twice a day for 4 days #8 tablets Qualifiers: Aspiration pneumonia type: due to regurgitated food Qualified Code(s): J69.0 - Pneumonitis due to inhalation of food and vomit (2) Influenza A Status: Acute Assessment and plan: Improved. Shortness with Tamiflu 35 mg by mouth twice a day for 3 days #6 capsules (3) UTI (urinary tract infection) Status: Acute Assessment and plan: Improved. Qualifiers: Urinary tract infection type: site unspecified Hematuria presence: without hematuria Qualified Code(s): N39.0 - Urinary tract infection, site not specified (4) Edema of right forearm Status: Acute Assessment and plan: Upper extremity venous duplex exam demonstrates no new onset of right arm swelling and no DVT on the right upper extremity. No acute intervention needed at this time. (5) Elevated troponin Status: Acute Assessment and plan: The patient has chronically elevated troponins. Likely from demand ischemia. No cardiac intervention required at this time. (6) Hypertension Status: Chronic Qualifiers: Hypertension type: essential hypertension Qualified Code(s): I10 - Essential (primary) hypertension (7) Diabetes Status: Chronic Assessment and plan: Continue with SSI. A1c at 7.2. Follow-up with outpatient PCP. Qualifiers: Diabetes mellitus type: type 2 Diabetes mellitus complication status: without complication Diabetes mellitus terminal carman insulin use: without alf use Qualified Code(s): E11.9 - Type 2 diabetes mellitus without complications (8) Atrial fibrillation Status: Chronic Assessment and plan: Continue with home medications aspirin and Plavix. Qualifiers: Atrial fibrillation type: unspecified Qualified Code(s): I48.91 - Unspecified atrial fibrillation (9) History of CVA (cerebrovascular accident) Status: Chronic Assessment and plan: Continue with home medications - Time Spent With Patient 25 - 35 minutes - Subjective Interval history: 86-year-old male with history of A. 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 Temperature at the ER is 101.7. his troponins are chronically elevated. RIP demonstrated positive influenza A and he was started on Tamiflu, and Unasyn for aspiration pneumonitis. Patient has not experienced any vomiting, diarrhea. All medications have been switched to G -tube. He does not have any complaints of fever, chills, nausea, vomiting. He is able to nod and shake his head to answer my questions. He appears back to baseline and continues to improve. - Constitutional Vitals: Temp Pulse Resp BP Pulse Ox 97.7 F 64 15 155/76 96 08/08/17 08:50 08/08/17 08:50 08/08/17 08:50 08/08/17 08:50 08/08/17 08:50 General appearance: Present: no acute distress (Physical) - Head Head exam: Present: atraumatic, normocephalic - Eye Eye exam: Present: PERRL, conjuntiva pink, sclera anicteric Pupils: Present: PERRL - Neck Neck exam general surgery: Present: supple, trachea midline. Absent: lymphadenopathy - Respiratory Respiratory exam: Present: CTAB. Absent: accessory muscle use, rales, rhonchi, wheezes - Cardiovascular Cardiovascular exam: Present: RRR, +S1, +S2. Absent: diastolic murmur, gallop, rubs, systolic murmur - GI/Abdominal GI/Abdominal exam: Present: normal bowel sounds, soft, no peritoneal signs. Absent: distended, tenderness Additional comments: PEG tube appears clotted. No signs of infection. Clean and dry. - Extremities Exam Extremities exam: Present: warm, radial pulses palpable and symmetrical. Absent : calf tenderness, cyanotic, pedal edema Additional comments: Right-sided hemiplegia noted. Chronically inflamed right forearm noted. - Neurological Exam Neurological exam: Present: CN II-XII intact, oriented X3, no focal deficits. Absent: pronater drift, facial droop, speech deficit - Skin Skin exam: Present: dry, intact Internal Medicine: Result - Labs CBC & Chem 7: 08/07/17 06:09 08/07/17 06:09 - ABG Interpretation ABG results: PT/INR, D-dimer PT 12.5 Seconds (9.4-12.1) H 08/05/17 02:42 Consult Discharge Plan - Plan Additional Instructions: Patient is to be discharged back to SNF. Follow-up with PCP Referrals: Hasmukh Esteves DO [Primary Care Provider] - ([facility]) Prescriptions: Amoxicillin/Clavulanate [Augmentin] 875 mg PO BIDWM 5 Days #10 tablet Oseltamivir [Tamiflu] 75 mg PO BID 3 Days #6 capsule <Kimani Najera T - Last Filed: 08/08/17 12:18> Date of Encounter: 08/08/17 - Constitutional Vitals: Temp Pulse Resp BP Pulse Ox 97.6 F 89 15 121/65 94 08/08/17 10:50 08/08/17 10:50 08/08/17 10:50 08/08/17 10:50 08/08/17 10:50 Internal Medicine: Result - Labs CBC & Chem 7: 08/07/17 06:09 08/07/17 06:09 - ABG Interpretation ABG results: PT/INR, D-dimer PT 12.5 Seconds (9.4-12.1) H 08/05/17 02:42 - Attending Attestation I examined this patient and my medical decision-making was reviewed with the Resident Physician. I agree with the documented findings, disposition and treatment plan as described except to the extent set forth below 86 M with history of ischemic CVA with possible right hemiparesis, dysarthria, and speech and swallowing difficulties, PEG tube. Admitted for aspiration pneumonitis and pneumonia. Patient unable to verbalize no complaints states okay to no problems. Physical examination unremarkable for right middle lobe bronchi, right upper extremity swelling, no pedal edema. Dysarthric, complete hemiplegia of the right side. Labs and imaging reviewed unremarkable. RUE doppler shows no DVT, Xray is unremarkable, swelling is possibly due to dependence. Blood culture is negative Safe to discharge back to shelter facility on oral antibiotics. Resume details is as an resident physician's documentation.
[2017-08-08 11:03] VITALS: BP 121/65
[2017-08-08] MEDS: Oseltamivir 6 MG/ML UDC GTUBE SCH (11:25)
--- NOTE | 2017-08-08 19:17 | Electrocardiograph Report ---
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
== END 2017-08-08 12:04 | DRG 178 ==
LOC: EMEROO 01:13 → 3ANU 01:13 → SUATTDRO 05:04
PROVIDERS: ADMIT Internal Medicine; ATTEND Internal Medicine

== ENCOUNTER 2017-12-24 14:10 | Inpatient (IN) ==
--- NOTE | 2017-12-24 14:28 | Emergency Department Note ---
Disposition Clinical Impression: Delirium due to general medical condition, Cardiac enzymes elevated TIA (transient ischemic attack) Qualifiers: Transient cerebral ischemia type: unspecified Qualified Code(s): G45.9 - Transient cerebral ischemic attack, unspecified Disposition: Admitted As Inpatient Condition: Fair Referrals: Hasmukh Esteves DO [Primary Care Provider] - Forms: ED Satisfaction Letter Time of Disposition: 16:27 General Adult HPI - General Chief complaint: ED Altered Mental Status Stated complaint: AMS Time Seen by Provider: 12/24/17 14:16 Source: EMS Limitations: other Nursing Notes Reviewed: Yes Vital Signs Reviewed: Yes - History of Present Illness HPI Narrative: Male patient with a history of stroke went to [facility]. Patient with previous history of stroke went to sleep last night at the [facility] and did not get up asking for copy of her normal morning. They had to go to his room around 10:30. He was not acting himself that time. Daughter states that he was nonverbal. Generally he does speak it is garbled which generally understanding. Of note he did have a fall several days ago. He is on Plavix and aspirin. Family states he was not worked up for this afterwards. Pain Scale: 0 - Related Data Home Medications Medication Instructions Recorded Confirmed Allopurinol [Zyloprim 300 MG] 300 mg GTUBE DAILY 01/20/17 12/24/17 Aspirin 81 mg GTUBE DAILY 01/20/17 12/24/17 Gabapentin [Neurontin] 300 mg GTUBE HS 01/20/17 12/24/17 Lisinopril [Zestril] 20 mg GTUBE DAILY 01/20/17 12/24/17 Multivitamin [Multi-Day Vitamins] 1 tab GTUBE DAILY 01/20/17 12/24/17 Simvastatin [Zocor] 20 mg GTUBE QPM 01/20/17 12/24/17 Acetaminophen [Tylenol] 650 mg GTUBE TID PRN 08/06/17 12/24/17 Carvedilol [Coreg] 12.5 mg GTUBE DAILY 08/06/17 12/24/17 Insulin Glargine,Hum.rec.anlog 4 unit SQ HS 08/06/17 12/24/17 [Lantus Solostar] Isosorbide MONOnitrate (24 HR) 30 mg PO DAILY 08/06/17 12/24/17 [Imdur] Melatonin 6 mg GTUBE HS PRN 08/06/17 12/24/17 Mirtazapine [Remeron] 15 mg PO HS 08/06/17 12/24/17 Atropine 1% Opth Drops 2 drop SL Q2H 12/24/17 12/24/17 Previous Rx's Medication Instructions Recorded Clopidogrel [Plavix] 75 mg PO DAILY #30 tablet 01/23/17 Allergies Allergy/AdvReac Type Severity Reaction Status Date / Time No Known Allergies Allergy Verified 12/24/17 15:16 Limitations: ROS unobtainable due to patients medical condition Past Medical History - Past Medical History Attestation: Yes The following information was validated with the patient. Source: patient Medical history: Reports: atrial fibrillation, coronary artery disease, CVA, diabetes, GERD, hypertension, myocardial infarction, other Surgical history: Reports: cataract, orthopedic, other, angioplasty/stent Psychiatric history: Reports: depression - Social History Smoking Status: Former smoker Smokeless Tobacco Status: No Alcohol use: Reports: none Drug use: Reports: none Physical Exam - General Limitations: other General appearance: alert - Head Head exam: atraumatic, normocephalic, normal inspection - Eye Eye exam: Present: normal appearance, other (Patient does not track me. His pupils are equal and reactive to light.) - ENT ENT exam: normal exam, normal oropharynx, mucous membranes moist - Neck Neck exam: Present: normal inspection, full ROM, trachea midline - Chest Chest inspection: Present: normal inspection, symmetric chest wall rise - Respiratory Respiratory exam: Present: normal lung sounds bilaterally. Absent: respiratory distress, accessory muscle use - Cardiovascular Cardiovascular exam: Present: regular rate, normal rhythm, normal heart sounds - Abdominal Exam Abdominal exam: Present: soft, Non-Tender. Absent: tenderness, distention, guarding, rebound, rigidity, organomegaly - Extremities Exam Extremities exam: Present: other (Paralysis on the right. Patient will squeeze my hand on the left. It is weak. 2 out of 5 muscle strength..). Absent: pedal edema - Neurological Exam Neurological exam: Absent: oriented X3 - Skin Skin exam: Present: warm, dry, intact, normal color. Absent: rash, cyanosis Course Course Narrative: Male patient presenting to the emergency department with his daughter and by EMS. During that the patient was last known well last night. Does have a history of stroke with right-sided paralysis or deficits. Daughter states that the patient has not been speaking to her symptoms she has been with them however he does speak while he is here. He is not able to track me in the room. Lung sounds are clear heart tones are normal. Pupils are equal and reactive bilaterally. He does have a right-sided facial droop and right-sided paralysis. He is following my commands and will airport refueling handler my hand whenever questioned about it. The states that the patient did have a fall 3-4 days ago that they were unaware of. He has no signs of trauma to his body. However he is on Plavix. We will get a head CT to urinalysis. They state he has been treated for UTI this time. Chest x-ray and a basic lab workup. Patient is in his early bradycardic in the 50s however his blood pressure has been normal. He is on a beta joseph at this time. We will hold that currently. - Reevaluation(s) Reevaluation #1: Pt symptoms are resolving. Patient is sitting up and appears to be more alert. He is able to track me. He is speaking I do not understand how her family does. He states he is almost back to baseline. We will admit patient to the hospital for his new EKG findings as well as increased troponin however this is lower than the general troponins. As well as his TIA-like symptoms. Did have a CT of his head which showed findings consistent with a previous stroke. Time: 16:00 - Consultations Consultation #1: I spoke with Dr Olivares. He agrees with the plan of aspirin and trending troponins. No formal consult at this time. Time: 16:08 Consultation #2: I spoke with Dr monsivais. He is agreeable with the plan to give aspirin and admit for further evaluation. Time: 16:13 Consultation #3: Dr Brian accepted Pt in stable condition. Time: 16:21 Vital Signs Temperature 97.3 F L 12/24/17 14:11 Pulse Rate 50 12/24/17 14:11 Respiratory Rate 18 12/24/17 14:11 Blood Pressure 154/93 12/24/17 14:11 O2 Sat by Pulse Oximetry 99 12/24/17 14:11 Temperature 97.3 F L 12/24/17 14:11 Pulse Rate 50 06/24/18 14:11 Respiratory Rate 18 12/24/17 14:11 Blood Pressure 154/93 12/24/17 14:11 O2 Sat by Pulse Oximetry 99 12/24/17 14:11 Oxygen Delivery Oxygen Delivery Room Air Medical Decision Making - Medical Records Medical records reviewed: Yes I reviewed the patient's medical records. - Lab Data Lab results reviewed: Yes I reviewed the patient's lab results. Result diagrams: 12/24/17 14:57 12/24/17 14:57 Lab Results 12/24/17 12/24/17 12/24/17 Range/Units 14:37 14:37 14:57 WBC 8.5 (4.3-11.1) K/mcL RBC 3.88 L (4.19-5.50) M/mcL Hgb 12.4 L (12.9-16.9) g/dL Hct 37.5 (37.5-50.1) % MCV 96.6 (83.0-100.0) fL MCH 32.0 (28.0-33.3) pg MCHC 33.1 (31.6-35.5) g/dL RDW 13.8 (11.5-14.5) % Plt Count 183 (140-400) K/mcL MPV 10.5 (9.4-12.4) fL Immature Gran % 0.4 (0-4) % Seg Neutrophils % 56.3 % Lymphocytes % 27.3 % Monocytes % 8.3 % Eosinophils % 7.0 % Basophils % 0.7 % Neutrophils # 4.8 (1.6-8.9) K/mcL Lymphocytes # 2.3 (0.6-4.6) K/mcL Monocytes # 0.7 (0.0-1.3) K/mcL Eosinophils # 0.6 (0.0-0.6) K/mcL Basophils # 0.1 (0.0-0.2) K/mcL PT (9.4-12.1) Seconds INR APTT (26.0-36.0) Seconds Sodium (136-145) mEq/L Potassium (3.5-5.1) mEq/L Chloride (98-107) mEq/L Carbon Dioxide (23-29) mEq/L BUN (8-23) mg/dL Creatinine (0.70-1.30) mg/dL Est GFR ( Amer) (> 60) Est GFR (Non-Af Amer) (> 60) BUN/Creatinine Ratio (6-26) Glucose (70-105) mg/dL Calculated Osmolality (280-300) Calcium (8.6-10.3) mg/dL Total Bilirubin (0.3-1.0) mg/dL Direct Bilirubin (0.0-0.2) mg/dL Indirect Bilirubin (0.0-1.2) mg/dL AST (13-39) Units/L ALT (7-52) Units/L Alkaline Phosphatase (34-104) Units/L Troponin I (< 0.04) ng/mL Serum Total Protein (6.4-8.9) g/dL Albumin (3.5-5.7) g/dL Globulin (2.4-3.5) g/dL Albumin/Globulin Ratio (1.1-2.2) Urine Color Yellow (Yellow) Urine Clarity Clear (Clear) Urine pH 7.0 (5.0-8.0) pH Units Ur Specific [place] 1.016 (1.010-1.025) Urine Protein Negative (Neg-Trace) mg/dL Urine Glucose (UA) Normal (Normal) mg/dL Urine Ketones Negative (Negative) mg/dL Urine Blood Large H (Negative) Urine Nitrite Negative (Negative) Urine Bilirubin Negative (Negative) Urine Urobilinogen Normal (Normal) mg/dL Ur Leukocyte Esterase Small H (Negative) Urine Microscopic RBC TNTC H (0-3) per hpf Urine Microscopic WBC 3-5 H (0-3) per hpf Ur Squamous Epith Cells Many H (None-Few) per lpf Ur Renal Epithelial Cell Moderate H (None-Few) per hpf Urine Bacteria Few (None-Few) per hpf Hyaline Casts Few (None-Few) per lpf Ur Culture Indicated? NO. A (NO) Urine Opiates Screen Negative (Jtmdpw=791) ng/mL Ur Barbiturates Screen Negative (Xdlcjs=493) ng/mL Ur Phencyclidine Scrn Negative (Cutoff=25) ng/mL Ur Amphetamines Screen Negative (Roejbu=9272) ng/mL U Benzodiazepines Scrn Negative (Chbhaw=450) ng/mL Urine Cocaine Screen Negative (Cutoff= 300) ng/mL U Marijuana (THC) Screen Negative (Cutoff = 50) ng/mL Ethyl Alcohol (Less than 10) mg/dL 12/24/17 12/24/17 Range/Units 14:57 14:57 WBC (4.3-11.1) K/mcL RBC (4.19-5.50) M/mcL Hgb (12.9-16.9) g/dL Hct (37.5-50.1) % MCV (83.0-100.0) fL MCH (28.0-33.3) pg MCHC (31.6-35.5) g/dL RDW (11.5-14.5) % Plt Count (140-400) K/mcL MPV (9.4-12.4) fL Immature Gran % (0-4) % Seg Neutrophils % % Lymphocytes % % Monocytes % % Eosinophils % % Basophils % % Neutrophils # (1.6-8.9) K/mcL Lymphocytes # (0.6-4.6) K/mcL Monocytes # (0.0-1.3) K/mcL Eosinophils # (0.0-0.6) K/mcL Basophils # (0.0-0.2) K/mcL PT 11.3 (9.4-12.1) Seconds INR 1.1 APTT 30.3 (26.0-36.0) Seconds Sodium 140 (136-145) mEq/L Potassium 4.4 (3.5-5.1) mEq/L Chloride 107 (98-107) mEq/L Carbon Dioxide 27 (23-29) mEq/L BUN 16 (8-23) mg/dL Creatinine 0.72 (0.70-1.30) mg/dL Est GFR ( Amer) > 60 (> 60) Est GFR (Non-Af Amer) > 60 (> 60) BUN/Creatinine Ratio 22 (6-26) Glucose 146 H (70-105) mg/dL Calculated Osmolality 294 (280-300) Calcium 9.7 (8.6-10.3) mg/dL Total Bilirubin 0.4 (0.3-1.0) mg/dL Direct Bilirubin 0.1 (0.0-0.2) mg/dL Indirect Bilirubin 0.3 (0.0-1.2) mg/dL AST 25 (13-39) Units/L ALT 27 (7-52) Units/L Alkaline Phosphatase 76 (34-104) Units/L Troponin I 0.08 H* (< 0.04) ng/mL Serum Total Protein 6.5 (6.4-8.9) g/dL Albumin 3.6 (3.5-5.7) g/dL Globulin 2.9 (2.4-3.5) g/dL Albumin/Globulin Ratio 1.2 (1.1-2.2) Urine Color (Yellow) Urine Clarity (Clear) Urine pH (5.0-8.0) pH Units Ur Specific [place] (1.010-1.025) Urine Protein (Neg-Trace) mg/dL Urine Glucose (UA) (Normal) mg/dL Urine Ketones (Negative) mg/dL Urine Blood (Negative) Urine Nitrite (Negative) Urine Bilirubin (Negative) Urine Urobilinogen (Normal) mg/dL Ur Leukocyte Esterase (Negative) Urine Microscopic RBC (0-3) per hpf Urine Microscopic WBC (0-3) per hpf Ur Squamous Epith Cells (None-Few) per lpf Ur Renal Epithelial Cell (None-Few) per hpf Urine Bacteria (None-Few) per hpf Hyaline Casts (None-Few) per lpf Ur Culture Indicated? (NO) Urine Opiates Screen (Xfuszv=705) ng/mL Ur Barbiturates Screen (Ggohxv=517) ng/mL Ur Phencyclidine Scrn (Cutoff=25) ng/mL Ur Amphetamines Screen (Wbpeet=9462) ng/mL U Benzodiazepines Scrn (Wctizs=827) ng/mL Urine Cocaine Screen (Cutoff= 300) ng/mL U Marijuana (THC) Screen (Cutoff = 50) ng/mL Ethyl Alcohol < 10 (Less than 10) mg/dL - Radiology Data Radiology results reviewed: Yes I reviewed the patient's radiology results. Chest X-Ray 12/24/17 14:21 IMPRESSION: 1. Enlarged cardiac silhouette. 2. Otherwise, no convincing acute cardiopulmonary abnormality. D/ / Anthony Hunter MD / Anthony Hunter MD Interpreting Provider: Anthony Hunter MD Head CT 12/24/17 14:21 IMPRESSION: Large remote left middle cerebral artery distribution infarct without acute findings. D/ /24/2017 15:21:27 Valeriano Dumont MD / lis Interpreting Provider: Valeriano Dumont MD - EKG Data EKG #1 EKG attestation: Yes I reviewed and interpreted this EKG. EKG results narrative: Sinus bradycardia at a rate of 51. [place] interval is 213. QRS duration is 109. QT is 459. QTC is 436. Patient does have T-wave inversions in lead 12 V3 V4 V5 and V6. These were present before in all leads except for V4 and V5. No signs of acute ischemia. No other significant changes from previous EKG dated 08/05/2017.
--- NOTE | 2017-12-24 14:55 | Emergency Department Note ---
Disposition Clinical Impression: Delirium due to general medical condition Disposition: Admitted As Inpatient Referrals: Hasmukh Esteves DO [Primary Care Provider] - Forms: ED Satisfaction Letter General Adult HPI - General Chief complaint: ED Altered Mental Status Stated complaint: AMS Time Seen by Provider: 12/24/17 14:16 Source: EMS Limitations: other - History of Present Illness Pain Scale: 0 - Related Data Home Medications Medication Instructions Recorded Confirmed Allopurinol [Zyloprim 300 MG] 300 mg GTUBE DAILY 01/20/17 08/06/17 Aspirin 81 mg GTUBE DAILY 01/20/17 08/06/17 Gabapentin [Neurontin] 300 mg GTUBE HS 01/20/17 08/06/17 Lisinopril [Zestril] 20 mg GTUBE DAILY 01/20/17 08/06/17 Multivitamin [Multi-Day Vitamins] 1 tab GTUBE DAILY 01/20/17 08/06/17 Simvastatin [Zocor] 20 mg GTUBE QPM 01/20/17 08/06/17 Acetaminophen [Tylenol] 650 mg GTUBE TID PRN 08/06/17 08/06/17 Carvedilol [Coreg] 12.5 mg GTUBE DAILY 08/06/17 08/06/17 Insulin Glargine,Hum.rec.anlog 4 unit SQ HS 08/06/17 08/06/17 [Lantus Solostar] Isosorbide MONOnitrate (24 HR) 30 mg PO DAILY 08/06/17 08/06/17 [Imdur] Melatonin 6 mg GTUBE HS PRN 08/06/17 08/06/17 Mirtazapine [Remeron] 15 mg PO HS 08/06/17 08/06/17 Scopolamine [Transderm-Scop] 1 patch TD Q72H 08/06/17 08/06/17 Previous Rx's Medication Instructions Recorded Clopidogrel [Plavix] 75 mg PO DAILY #30 tablet 01/23/17 Amoxicillin/Clavulanate [Augmentin] 875 mg PO BIDWM 5 Days #10 tablet 08/07/17 Oseltamivir [Tamiflu] 75 mg PO BID 3 Days #6 capsule 08/07/17 Allergies Allergy/AdvReac Type Severity Reaction Status Date / Time No Known Allergies Allergy Verified 03/26/15 12:25 Past Medical History - Past Medical History Medical history: Reports: atrial fibrillation, coronary artery disease, CVA, diabetes, GERD, hypertension, myocardial infarction, other Surgical history: Reports: cataract, orthopedic, other, angioplasty/stent Psychiatric history: Reports: depression - Social History Smoking Status: Former smoker Smokeless Tobacco Status: No Alcohol use: Reports: none Drug use: Reports: none Physical Exam - General Limitations: other General appearance: alert Course - Reevaluation(s) Reevaluation #1: Attestation note I examined this patient and my medical decision-making was reviewed with the emergency medicine resident. I agree with the documented findings, disposition and treatment plan as described except to the extent set forth below. Patient seen with emergency medicine resident Dr. Yaneli Seymour, Please see a copy of his note for details of the H&P, ED evaluation, management and disposition. I have independently evaluated the patient and confirmed appropriate portions of the history and physical exam. Briefly: 87-year-old -[place] male brought in with family [facility] due to altered mental status. Patient has a history of stroke with residual right-sided deficits decreased alertness increased somnolence. Patient is awake although not oriented which is different they say from usual. Patient will undergo ED workup with admission. Of note patient is being [facility]TI [facility] the jail facility. Time: 14:53 Vital Signs Temperature 97.3 F L 12/24/17 14:11 Pulse Rate 50 12/24/17 14:11 Respiratory Rate 12/24/17 14:11 Blood Pressure 154/93 12/24/17 14:11 O2 Sat by Pulse Oximetry 99 12/24/17 14:11 Temperature 97.3 F L 12/24/17 14:11 Pulse Rate 50 12/24/17 14:11 Respiratory Rate 12/24/17 14:11 Blood Pressure 154/93 12/24/17 14:11 O2 Sat by Pulse Oximetry 99 12/24/17 14:11 Oxygen Delivery Oxygen Delivery Room Air
[2017-12-24 15:12] LABS: Bilirubin,Urine Negative (Negative); Blood,Urine Large (Negative); Clarity,Urine Clear (Clear); Color,Urine Yellow (Yellow); Glucose,Urine (UA) Normal (Normal); Ketones,Urine Negative (Negative); Leukocyte Esterase,Urine Small (Negative); Nitrite,Urine Negative (Negative); Protein,Urine Negative (Neg-Trace); Specific Gravity,Urine 1.016 (1.010-1.025); Urobilinogen,Urine Normal (Normal)
[2017-12-24 15:13] LABS: Basophils # 0.1 K/mcL (0.0-0.2); Basophils % 0.7 %; Eosinophils # 0.6 K/mcL (0.0-0.6); Hematocrit 37.5 % (37.5-50.1); Hemoglobin 12.4 g/dL (12.9-16.9); Immature Granulocytes % 0.4 % (0-4); Lymphocytes # 2.3 K/mcL (0.6-4.6); Lymphocytes % 27.3 %; Mean Corpuscular HGB Conc 33.1 g/dL (31.6-35.5); Mean Corpuscular Volume 96.6 fL (83.0-100.0); Mean Platelet Volume 10.5 fL (9.4-12.4); Monocytes # 0.7 K/mcL (0.0-1.3); Monocytes % 8.3 %; Neutrophils # 4.8 K/mcL (1.6-8.9); Platelet Count 183 K/mcL (140-400); Red Blood Count 3.88 M/mcL (4.19-5.50); Red Cell Distribution Width 13.8 % (11.5-14.5); Segmented Neutrophils % 56.3 %
[2017-12-24 15:14] LABS: Hyaline Casts,Urine Few per lpf (None-Few); RBC,Urine TNTC per hpf (0-3); Squamous Epithelial Cell,Urine Many per lpf (None-Few)
[2017-12-24 15:21] LABS: Amphetamine Screen,Urine Negative ng/mL (Cutoff=1000); Barbiturate Screen,Urine Negative ng/mL (Cutoff=200); Benzodiazepines Screen,Urine Negative ng/mL (Cutoff=200); Cannabinoid Screen,Urine Negative ng/mL (Cutoff = 50); Cocaine Screen,Urine Negative ng/mL (Cutoff= 300); Opiate Screen,Urine Negative ng/mL (Cutoff=300); Phencyclidine Screen,Urine Negative ng/mL (Cutoff=25)
[2017-12-24 15:21] LABS: INR 1.1; Prothrombin Time 11.3 Seconds (9.4-12.1)
[2017-12-24 15:24] LABS: Activated Partial Thrombo Time 30.3 Seconds (26.0-36.0)
[2017-12-24 15:30] LABS: Renal Epithelial Cells,Urine Moderate per hpf (None-Few)
[2017-12-24 15:31] LABS: Bacteria,Urine Few per hpf (None-Few)
[2017-12-24 15:32] LABS: Alanine Aminotransferase 27 Units/L (7-52); Albumin 3.6 g/dL (3.5-5.7); Albumin/Globulin Ratio 1.2 (1.1-2.2); Alkaline Phosphatase 76 Units/L (34-104); Aspartate Amino Transferase 25 Units/L (13-39); BUN/Creatinine Ratio 22 (6-26); Bilirubin,Direct 0.1 mg/dL (0.0-0.2); Bilirubin,Indirect 0.3 mg/dL (0.0-1.2); Bilirubin,Total 0.4 mg/dL (0.3-1.0); Blood Urea Nitrogen 16 mg/dL (8-23); Calcium 9.7 mg/dL (8.6-10.3); Carbon Dioxide 27 mEq/L (23-29); Chloride 107 mEq/L (98-107); Ethanol < 10 mg/dL (Less than 10); Globulin 2.9 g/dL (2.4-3.5); Glucose 146 mg/dL (70-105); Osmolality,Calculated 294 (280-300); Potassium 4.4 mEq/L (3.5-5.1); Sodium 140 mEq/L (136-145); Total Protein 6.5 g/dL (6.4-8.9); eGFR For Non-African Americans > 60 (> 60)
[2017-12-24 15:33] LABS: Troponin I 0.08 ng/mL (< 0.04)
[2017-12-24] MEDS ORDERED: Aspirin 81 MG TAB.CHEW PO ONE (16:06)
--- NOTE | 2017-12-24 19:31 | Internal Med History&Physical ---
Date of Encounter: 12/24/17 Time of Encounter: 18:00 Internal Medicine - H&P: HPI Chief complaint: Dysarthria Admitted From: Long-term Nursing Facility Plans for Post Hospital Care: Transfer Halfway Facility History of present illness: Patient is an 87-year-old male with previous history of CVA, atrial fibrillation , hypertension diabetes, hyperlipidemia and difficulty swallowing with PEG tube presents for ECF due to new onset of garbled speech with altered mental status. Patient apparently has had a CVA in the past with right-sided residual symptoms and was found to have difficulty speaking and not able to swallow his pills today at the ECF in addition to altered mental status so was sent to the ER for evaluation. In the ER, labs are unremarkable other than slightly elevated troponin at has always been elevated for the last year in December from 0.08 (todays level) to 0.16 on 08/2017. CT of the head showed large remote left middle cerebral artery distribution infarct without acute findings. Patient will be admitted to medicals surgical floor for new CVA rule out. Past Med Surg Social Fam HX - Past Medical History Medical history: atrial fibrillation, coronary artery disease, CVA, diabetes, GERD, hypertension, myocardial infarction, other Psychiatric history: depression - Past Surgical History Surgical History: cataract, orthopedic, other, angioplasty/stent Additional surgical history: Neck Fusion - Social History Smoking Status: Former smoker Smokeless Tobacco Status: No Alcohol use: none Drug use: none - Family History Mother Living Status: Hx Family Cardiac Disorders: No Hx Family Respiratory Disorders: No Hx Family Cancer: Yes Hx Family GI Disorders: No Hx Family Endocrine Disorder: No Hx Family Neuromuscular Disorders: No Hx Family Neurologic Disorders: No Hx Family HEENT Disorders: No Hx Family Autoimmune Disorders: No Internal Medicine - H&P: Meds Allopurinol [Zyloprim 300 MG] 300 mg GTUBE DAILY 01/20/17 [History] Aspirin 81 mg GTUBE DAILY 01/20/17 [History] Gabapentin [Neurontin] 300 mg GTUBE HS 01/20/17 [History] Lisinopril [Zestril] 20 mg GTUBE DAILY 01/20/17 [History] Multivitamin [Multi-Day Vitamins] 1 tab GTUBE DAILY 01/20/17 [History] Simvastatin [Zocor] 20 mg GTUBE QPM 01/20/17 [History] Clopidogrel [Plavix] 75 mg PO DAILY #30 tablet 01/23/17 [Rx] Acetaminophen [Tylenol] 650 mg GTUBE TID PRN 08/06/17 [History] Carvedilol [Coreg] 12.5 mg GTUBE DAILY 08/06/17 [History] Insulin Glargine,Hum.rec.anlog [Lantus Solostar] 4 unit SQ HS 08/06/17 [History] Isosorbide MONOnitrate (24 HR) [Imdur] 30 mg PO DAILY 08/06/17 [History] Melatonin 6 mg GTUBE HS PRN 08/06/17 [History] Mirtazapine [Remeron] 15 mg PO HS 08/06/17 [History] Atropine 1% Opth Drops 2 drop SL Q2H 12/24/17 [History] 3 Allergy/AdvReac Type Severity Reaction Status Date / Time No Known Allergies Allergy Verified 12/24/17 15:16 ROS unobtainable: due to mental status All Systems PM: A 10-system review of systems was performed and is negative for pertinent findings except as documented above in the HPI. - Constitutional Vitals: Temp Pulse Resp BP Pulse Ox 97.3 F L 57 15 178/91 96 12/24/17 18:58 12/24/17 18:58 12/24/17 18:58 12/24/17 18:58 12/24/17 18:58 General appearance: Present: A&O X 1. Absent: answers questions appropriately - Head Head exam: Present: atraumatic - Eye Eye exam: Present: normal appearance - ENT ENT exam: Present: mucous membranes moist - Respiratory Respiratory exam: Present: CTAB. Absent: accessory muscle use, rales, rhonchi, wheezes - Cardiovascular Cardiovascular exam: Present: RRR, +S1, +S2. Absent: diastolic murmur, gallop, rubs, systolic murmur - GI/Abdominal GI/Abdominal exam: Present: normal bowel sounds, soft, no peritoneal signs. Absent: distended, tenderness - Neurological Exam Neurological exam: Present: altered, speech deficit - Psychiatric Psychiatric exam: Present: normal mood - Skin Skin exam: Present: normal color Internal Med - H&P Results - Labs CBC & Chem 7: 12/24/17 14:57 12/24/17 14:57 - Assessment and plan (1) Dysarthria Current Visit: Yes Status: Acute Assessment and plan: Family reports that patient had dysarthria Patient does have history of prior CVA so baseline tilt to determine Will complete CVA workup and consult neurology for recommendations (2) Cardiac enzymes elevated Current Visit: Yes Status: Acute Assessment and plan: Patient with chronically elevated troponins but will trend monitor on telemetry (3) Systolic CHF Current Visit: No Status: Acute Assessment and plan: Will continue home medications Qualifiers: Heart failure chronicity: chronic Qualified Code(s): I50.22 - Chronic systolic (congestive) heart failure (4) Atrial fibrillation Current Visit: No Status: Chronic Assessment and plan: Continue home medications Qualifiers: Atrial fibrillation type: chronic Qualified Code(s): I48.2 - Chronic atrial fibrillation (5) Diabetes Current Visit: No Status: Chronic Assessment and plan: Continue home medications Qualifiers: Chronic kidney disease stage: unspecified stage Qualified Code(s): E08.22 - Diabetes mellitus due to underlying condition with diabetic chronic kidney disease; 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
[2017-12-24] MEDS ORDERED: Naloxone 0.4 MG/ML INJ IVP PRN (19:34)
[2017-12-25 02:16] LABS: Basophils # 0.1 K/mcL (0.0-0.2); Basophils % 0.8 %; Eosinophils # 0.6 K/mcL (0.0-0.6); Eosinophils % 5.7 %; Hematocrit 35.8 % (37.5-50.1); Hemoglobin 11.7 g/dL (12.9-16.9); Hemoglobin 12.1 g/dL (12.9-16.9); Immature Granulocytes % 0.3 % (0-4); Lymphocytes # 2.4 K/mcL (0.6-4.6); Lymphocytes % 23.3 %; Mean Corpuscular HGB Conc 33.8 g/dL (31.6-35.5); Mean Corpuscular Hemoglobin 32.2 pg (28.0-33.3); Mean Corpuscular Volume 95.2 fL (83.0-100.0); Mean Platelet Volume 10.1 fL (9.4-12.4); Monocytes # 0.9 K/mcL (0.0-1.3); Monocytes % 8.2 %; Neutrophils # 6.5 K/mcL (1.6-8.9); Platelet Count 168 K/mcL (140-400); Red Blood Count 3.76 M/mcL (4.19-5.50); Red Cell Distribution Width 13.8 % (11.5-14.5); Segmented Neutrophils % 61.7 %
[2017-12-25 02:37] LABS: BUN/Creatinine Ratio 19 (6-26); Blood Urea Nitrogen 14 mg/dL (8-23); Calcium 9.7 mg/dL (8.6-10.3); Carbon Dioxide 28 mEq/L (23-29); Chloride 107 mEq/L (98-107); Glucose 127 mg/dL (70-105); Osmolality,Calculated 294 (280-300); Potassium 4.2 mEq/L (3.5-5.1); Sodium 141 mEq/L (136-145); eGFR For Non-African Americans > 60 (> 60)
--- NOTE | 2017-12-25 07:18 | Urology - Consult Note ---
Date of Encounter: 12/25/17 Time of Encounter: 07:16 - Assessment and Plan (1) Gross hematuria Current Visit: Yes Status: Acute Assessment and plan: pt is an unreliable historian. unknown etiology for the gross hematuria but nurses report it is farliy significant. I have elected to obtain a retroperitoneal ultrasound first prior to places a cath and starting CBI. hold any anticoagulation if possible (unsure if this is possible bc of recent stroke/troponins). will follow after ultrasound. Urology CN:HPI Consult date: 12/25/17 Reason for consult Urology: Gross Hematuria History of present illness: patient with dementia and hx stroke admitted with altered mental status possible new stroke. found to have incontinence of bloody urine with clot. no imaging at this time. Past Med Surg Social Fam HX - Past Medical History Medical history: atrial fibrillation, coronary artery disease, CVA, diabetes, GERD, hypertension, myocardial infarction, other Psychiatric history: depression - Past Surgical History Surgical History: cataract, orthopedic, other, angioplasty/stent Additional surgical history: Neck Fusion - Social History Smoking Status: Former smoker Smokeless Tobacco Status: No Alcohol use: none Drug use: none - Family History Mother Living Status: Hx Family Cardiac Disorders: No Hx Family Respiratory Disorders: No Hx Family Cancer: Yes Hx Family GI Disorders: No Hx Family Endocrine Disorder: No Hx Family Neuromuscular Disorders: No Hx Family Neurologic Disorders: No Hx Family HEENT Disorders: No Hx Family Autoimmune Disorders: No Medications and Allergies Allopurinol [Zyloprim 300 MG] 300 mg GTUBE DAILY 01/20/17 [History] Aspirin 81 mg GTUBE DAILY 01/20/17 [History] Gabapentin [Neurontin] 300 mg GTUBE HS 01/20/17 [History] Lisinopril [Zestril] 20 mg GTUBE DAILY 01/20/17 [History] Multivitamin [Multi-Day Vitamins] 1 tab GTUBE DAILY 01/20/17 [History] Simvastatin [Zocor] 20 mg GTUBE QPM 01/20/17 [History] Clopidogrel [Plavix] 75 mg PO DAILY #30 tablet 01/23/17 [Rx] Acetaminophen [Tylenol] 650 mg GTUBE TID PRN 08/06/17 [History] Carvedilol [Coreg] 12.5 mg GTUBE DAILY 08/06/17 [History] Insulin Glargine,Hum.rec.anlog [Lantus Solostar] 4 unit SQ HS 08/06/17 [History] Isosorbide MONOnitrate (24 HR) [Imdur] 30 mg PO DAILY 08/06/17 [History] Melatonin 6 mg GTUBE HS PRN 08/06/17 [History] Mirtazapine [Remeron] 15 mg PO HS 08/06/17 [History] Atropine 1% Opth Drops 2 drop SL Q2H 12/24/17 [History] 3 Allergy/AdvReac Type Severity Reaction Status Date / Time No Known Allergies Allergy Verified 12/24/17 15:16 Review of Systems ROS unobtainable: due to mental status Exam Initial Vital Signs Temp Pulse Resp BP Pulse Ox 97.3 F L 50 18 154/93 99 12/24/17 14:11 12/24/17 14:11 12/24/17 14:11 12/24/17 14:11 12/24/17 14:11 - General physical appearance Present: no distress, chronically ill - Eyes Present: PERRL, conjunctiva is clear - ENT Present: normal nares - Neck Present: no masses, trachea midline - Respiratory Present: normal respiratory effort - Cardiovascular Cardiovascular exam IM: RRR - Abdomen Abdomen: Present: soft, suprapubic tenderness. Absent: masses - Integumentary Present: no rash - Neurologic Present: disoriented, confused - Additional Findings no urine available to visualize. Urology Results - Labs 12/25/17 02:03 12/25/17 02:03 Abnormal lab results RBC 3.76 M/mcL (4.19-5.50) L 12/25/17 02:03 Hgb 12.1 g/dL (12.9-16.9) L 12/25/17 02:03 Hct 35.8 % (37.5-50.1) L 12/25/17 02:03 Glucose 127 mg/dL (70-105) H 12/25/17 02:03 POC Glucose 117 mg/dL (70-99) H 12/24/17 20:36 Troponin I 0.09 ng/mL (< 0.04) H* 12/25/17 02:03 Urine Blood Large (Negative) H 12/24/17 14:37 Ur Leukocyte Esterase Small (Negative) H 12/24/17 14:37 Urine Microscopic RBC TNTC per hpf (0-3) H 12/24/17 14:37 Urine Microscopic WBC 3-5 per hpf (0-3) H 12/24/17 14:37 Ur Squamous Epith Cells Many per lpf (None-Few) H 12/24/17 14:37 Ur Renal Epithelial Cell Moderate per hpf (None-Few) H 12/24/17 14:37 Ur Culture Indicated? NO. (NO) A 12/24/17 14:37 Diabetes panel 12/25/17 Range/Units 02:03 Sodium 141 (136-145) mEq/L Potassium 4.2 (3.5-5.1) mEq/L Chloride 107 (98-107) mEq/L Carbon Dioxide 28 (23-29) mEq/L BUN 14 (8-23) mg/dL Creatinine 0.73 (0.70-1.30) mg/dL Glucose 127 H (70-105) mg/dL Calcium 9.7 (8.6-10.3) mg/dL Calcium panel 12/25/17 Range/Units 02:03 Calcium 9.7 (8.6-10.3) mg/dL Pituitary panel 12/25/17 Range/Units 02:03 Sodium 141 (136-145) mEq/L Potassium 4.2 (3.5-5.1) mEq/L Chloride 107 (98-107) mEq/L Carbon Dioxide 28 (23-29) mEq/L BUN 14 (8-23) mg/dL Creatinine 0.73 (0.70-1.30) mg/dL Glucose 127 H (70-105) mg/dL Calcium 9.7 (8.6-10.3) mg/dL Adrenal panel 12/25/17 Range/Units 02:03 Sodium 141 (136-145) mEq/L Potassium 4.2 (3.5-5.1) mEq/L Chloride 107 (98-107) mEq/L Carbon Dioxide 28 (23-29) mEq/L BUN 14 (8-23) mg/dL Creatinine 0.73 (0.70-1.30) mg/dL Glucose 127 H (70-105) mg/dL Calcium 9.7 (8.6-10.3) mg/dL All other labs normal. Consult Discharge Plan - Plan Referrals: Hasmukh Esteves DO [Primary Care Provider] -
[2017-12-25 08:34] LABS: Hematocrit 35.3 % (37.5-50.1); Hemoglobin 11.9 g/dL (12.9-16.9)
--- NOTE | 2017-12-25 10:26 | Internal Med Progress Note ---
Date of Encounter: 12/25/17 Time of Encounter: 10:25 - Assessment and plan (1) Cardiac enzymes elevated Current Visit: Yes Status: Acute Assessment and plan: This appears to be chronic we will continue to trend and monitor. No chest pain moist at this time. (2) DVT prophylaxis Current Visit: No Status: Acute Assessment and plan: SCDs (3) Diabetes Current Visit: No Status: Chronic Assessment and plan: Blood sugars have been stable patient will resume diet as well as nutritional supplements Accu-Cheks before meals and at bedtime with sliding scale insulin- we will hold home medications for now Qualifiers: Diabetes mellitus type: type 2 Diabetes mellitus cad intern insulin use: with half-way use Diabetes mellitus complication status: without complication Qualified Code(s): E11.9 - Type 2 diabetes mellitus without complications; Z79.4 - longterm (current) use of insulin (4) Atrial fibrillation Current Visit: No Status: Chronic Assessment and plan: Continue home medications-presently rate controlled Qualifiers: Atrial fibrillation type: chronic Qualified Code(s): I48.2 - Chronic atrial fibrillation (5) Systolic CHF Current Visit: No Status: Acute Assessment and plan: Will continue home medications-appears to be stable we will monitor intake output daily weights Qualifiers: Heart failure chronicity: chronic Qualified Code(s): I50.22 - Chronic systolic (congestive) heart failure (6) History of CVA (cerebrovascular accident) Current Visit: No Status: Chronic Assessment and plan: Patient with prior CVA with right-sided deficits He is on aspirin and Plavix statin (7) Dysarthria Current Visit: Yes Status: Acute Assessment and plan: Family states that he is improving history of prior CVA Neurology has been consulted and awaiting recommendations CVA workup (8) Gross hematuria Current Visit: Yes Status: Acute Assessment and plan: Urology has been consulted and awaiting retroperitoneal ultrasound prior to placing a catheter Hold anticoagulation of possible per urology recommendations (9) DVT prophylaxis Current Visit: Yes Status: Acute Assessment and plan: SCDs - Time Spent With Patient Total time spent is greater than 50% in coordination of care (as documented) at patient's floor/unit and/or counseling patient: - Subjective Interval history: Patient was seen and examined at bedside he is sitting up in a chair. Patient does have a previous history of CVA with right-sided weakness he does have a right-sided facial droop with the says is new. We are waiting for neurology recommendations. I did have a discussion with the who is power of checking department supervisor as well as daughter who is at bedside and the patient concerning CODE STATUS requesting DNR Comfort Care DNI. I reviewed treatment plan with the patient and family who verbalized understanding - Constitutional Vitals: Temp Pulse Resp BP Pulse Ox 97.7 F 72 16 130/64 93 12/25/17 06:58 12/25/17 06:58 12/25/17 06:58 12/25/17 06:58 12/25/17 06:58 General appearance: Present: A&O X 1. Absent: answers questions appropriately - Head Head exam: Present: atraumatic, normocephalic - Eye Eye exam: Present: PERRL, conjuntiva pink, sclera anicteric Pupils: Present: PERRL - Neck Neck exam general surgery: Present: supple, trachea midline. Absent: lymphadenopathy - Respiratory Respiratory exam: Present: CTAB. Absent: accessory muscle use, rales, rhonchi, wheezes - Cardiovascular Cardiovascular exam: Present: RRR, +S1, +S2. Absent: diastolic murmur, gallop, rubs, systolic murmur - GI/Abdominal GI/Abdominal exam: Present: normal bowel sounds, soft, no peritoneal signs. Absent: distended, tenderness - Extremities Exam Extremities exam: Present: warm, radial pulses palpable and symmetrical. Absent : calf tenderness, cyanotic, pedal edema - Neurological Exam Neurological exam: Present: CN II-XII intact, oriented X3, no focal deficits. Absent: pronater drift, facial droop, speech deficit - Skin Skin exam: Present: dry, intact Internal Medicine: Result - Labs CBC & Chem 7: 12/25/17 07:25 12/25/17 02:03 Labs: Short CBC 12/25/17 12/25/17 12/25/17 Range/Units 02:03 02:03 07:25 WBC 10.5 (4.3-11.1) K/mcL Hgb 12.1 L 11.7 L 11.9 L (12.9-16.9) g/dL Hct 35.8 L 35.0 L 35.3 L (37.5-50.1) % Plt Count 168 (140-400) K/mcL Neutrophils # 6.5 (1.6-8.9) K/mcL BMP 12/25/17 02:03 Sodium 141 Potassium 4.2 Chloride 107 Carbon Dioxide 28 BUN 14 Creatinine 0.73 Glucose 127 H Calcium 9.7 Cardiac Enzymes 12/24/17 12/25/17 12/25/17 Range/Units 21:10 02:03 07:25 Troponin I 0.08 H* 0.09 H* 0.10 H* (< 0.04) ng/mL - ABG Interpretation ABG results: PT/INR, D-dimer PT 11.3 Seconds (9.4-12.1) 12/24/17 14:57 Consult Discharge Plan - Plan Referrals: Hasmukh Esteves DO [Primary Care Provider] -
[2017-12-25] MEDS ORDERED: Melatonin 3 MG TABLET GTUBE PRN (14:04)
--- NOTE | 2017-12-25 14:34 | Internal Med Progress Note ---
Date of Encounter: 12/25/17 Time of Encounter: 14:31 - Assessment and plan (1) Cardiac enzymes elevated Current Visit: Yes Status: Acute (2) DVT prophylaxis Current Visit: No Status: Acute (3) Diabetes Current Visit: No Status: Chronic Qualifiers: Diabetes mellitus type: type 2 Diabetes mellitus supervisor intermediates insulin use: with supervisor intermediates use Diabetes mellitus complication status: without complication Qualified Code(s): E11.9 - Type 2 diabetes mellitus without complications; Z79.4 - FDC (current) use of insulin (4) Atrial fibrillation Current Visit: No Status: Chronic Qualifiers: Atrial fibrillation type: chronic Qualified Code(s): I48.2 - Chronic atrial fibrillation (5) Systolic CHF Current Visit: No Status: Acute Qualifiers: Heart failure chronicity: chronic Qualified Code(s): I50.22 - Chronic systolic (congestive) heart failure (6) History of CVA (cerebrovascular accident) Current Visit: No Status: Chronic (7) Dysarthria Current Visit: Yes Status: Acute (8) Gross hematuria Current Visit: Yes Status: Acute (9) DVT prophylaxis Current Visit: Yes Status: Acute - Time Spent With Patient Total time spent is greater than 50% in coordination of care (as documented) at patient's floor/unit and/or counseling patient: - Subjective Interval history: Patient was seen and examined at bedside he is sitting up in a chair. He is right-sided weakness which family states is normal. He does have some right- sided facial droop. Family states is new. I did have a conversation with the who is POA and daughter and patient concerning CODE STATUS. Family and patient in agreement for DNR CCA DNI - Constitutional Vitals: Temp Pulse Resp BP Pulse Ox 98.1 F 69 14 143/78 96 12/25/17 11:45 12/25/17 11:45 12/25/17 11:45 12/25/17 11:45 12/25/17 11:45 General appearance: Present: A&O X 1. Absent: answers questions appropriately Internal Medicine: Result - Labs CBC & Chem 7: 12/25/17 07:25 12/25/17 02:03 Labs: Short CBC 12/25/17 12/25/17 12/25/17 Range/Units 02:03 02:03 07:25 WBC 10.5 (4.3-11.1) K/mcL Hgb 12.1 L 11.7 L 11.9 L (12.9-16.9) g/dL Hct 35.8 L 35.0 L 35.3 L (37.5-50.1) % Plt Count 168 (140-400) K/mcL Neutrophils # 6.5 (1.6-8.9) K/mcL BMP 12/25/17 02:03 Sodium 141 Potassium 4.2 Chloride 107 Carbon Dioxide 28 BUN 14 Creatinine 0.73 Glucose 127 H Calcium 9.7 Cardiac Enzymes 12/24/17 12/25/17 12/25/17 Range/Units 21:10 02:03 07:25 Troponin I 0.08 H* 0.09 H* 0.10 H* (< 0.04) ng/mL - ABG Interpretation ABG results: PT/INR, D-dimer PT 11.3 Seconds (9.4-12.1) 12/24/17 14:57 Consult Discharge Plan - Plan Referrals: Hasmukh Esteves DO [Primary Care Provider] -
[2017-12-25] MEDS ORDERED: Melatonin 3 MG TABLET PO PRN (15:01)
--- NOTE | 2017-12-25 16:15 | Neurology - Consult Note ---
Date of Encounter: 12/25/17 Time of Encounter: 16:09 Assessment and Plan (1) Altered mental status Current Visit: Yes Status: Acute Patient presented with altered mental status which is now for the large part resolved. 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 I suspect that we may have been dealing with another ischemic event, versus something such as medication effect, infection, or other metabolic considerations. MRI scan of the brain is pending to look for diffusion deficit. There is no diffusion deficit. I will presume that this was due to either medication effect or perhaps urinary traction or some other underlying infection. I will follow-up with him in the morning, hopefully he gets the MRI scan of the brain done tonight. Unfortunately he is not a candidate for anticoagulation, therefore I would recommend Plavix 75 mg daily instead of aspirin. Qualifiers: Qualified Code(s): R41.82 - Altered mental status, unspecified History of Present Illness HPI: The chart was reviewed, the patient was seen and examined. Mr. 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 I did review his medical records. His son and daughter-in- law are all present and help to corroborate the history. The initial stroke occurred in January 2017. I did review the CT scan of the brain which does have a positive left MCA sign. The CT scan of the brain which was taken during this admission reveals evidence of chronic changes associated with the left MCA territory infarct. However no evidence of hemorrhage, mass effect, edema or or mass are present. He does have a history of atrial fibrillation however is not a good candidate for anticoagulation. Other stroke risk factors include hypertension, diabetes mellitus, and hyperlipidemia. Currently however he seems to be back to his normal baseline. His urinalysis was not a clean catch however apparently he has a history of UTIs and the discharge from the penis was noted on a document from his facility on 12/06/2017. Apparently there have been no changes in medications. MRI scan of the brain is pending. Past Med Surg Social Fam HX - Past Medical History Medical history: atrial fibrillation, coronary artery disease, CVA, diabetes, GERD, hypertension, myocardial infarction, other Psychiatric history: depression - Past Surgical History Surgical History: cataract, orthopedic, other, angioplasty/stent Additional surgical history: Neck Fusion - Social History Smoking Status: Former smoker Smokeless Tobacco Status: No Alcohol use: none Drug use: none - Family History Mother Living Status: Hx Family Cardiac Disorders: No Hx Family Respiratory Disorders: No Hx Family Cancer: Yes Hx Family GI Disorders: No Hx Family Endocrine Disorder: No Hx Family Neuromuscular Disorders: No Hx Family Neurologic Disorders: No Hx Family HEENT Disorders: No Hx Family Autoimmune Disorders: No Medications and Allergies Allopurinol [Zyloprim 300 MG] 300 mg GTUBE DAILY 01/20/17 [History] Aspirin 81 mg GTUBE DAILY 01/20/17 [History] Gabapentin [Neurontin] 300 mg GTUBE HS 01/20/17 [History] Lisinopril [Zestril] 20 mg GTUBE DAILY 01/20/17 [History] Multivitamin [Multi-Day Vitamins] 1 tab GTUBE DAILY 01/20/17 [History] Simvastatin [Zocor] 20 mg GTUBE QPM 01/20/17 [History] Clopidogrel [Plavix] 75 mg PO DAILY #30 tablet 01/23/17 [Rx] Acetaminophen [Tylenol] 650 mg GTUBE TID PRN 08/06/17 [History] Carvedilol [Coreg] 12.5 mg GTUBE DAILY 08/06/17 [History] Insulin Glargine,Hum.rec.anlog [Lantus Solostar] 4 unit SQ HS 08/06/17 [History] Isosorbide MONOnitrate (24 HR) [Imdur] 30 mg PO DAILY 08/06/17 [History] Melatonin 6 mg GTUBE HS PRN 08/06/17 [History] Mirtazapine [Remeron] 15 mg PO HS 08/06/17 [History] Atropine 1% Opth Drops 2 drop SL Q2H 12/24/17 [History] 3 Allergy/AdvReac Type Severity Reaction Status Date / Time No Known Allergies Allergy Verified 12/24/17 15:16 All Systems: The remainder of the systems were reviewed and are negative Review of Systems: The balance of the systems review is negative. Physical Examination - Vital Signs Vital Signs: Initial Vital Signs Temp Pulse Resp BP Pulse Ox 97.3 F L 50 18 154/93 99 12/24/17 14:11 12/24/17 14:11 12/24/17 14:11 12/24/17 14:11 12/24/17 14:11 - Neurologic Motor examination - right side: 1/5: deltoids (Increased tone of the right upper extremity), biceps ("), triceps ("), analyst sales ("), 2/5: hip flexors, tibialis Anterior, quadriceps, toe extension (EHL), plantarflexion Motor examination - left side: 5/5: deltoids, biceps, triceps, hip flexors, analyst sales , quadriceps, tibialis Anterior, toe extension (EHL), plantarflexion Detailed sensory examination: other (Difficult to assess sensory functions in the patient who is severely dysarthric and dysphasic.) Mental Status Examination: awake, alert, oriented to person, follows simple commands, expressive aphasia, impaired cognition (Unfortunately patient has difficulty communicating however he is able to talk some. Sometimes I am able to understand things that he is saying.) Cranial nerve examination: PERRL, EOMI (He does have some left gaze preference) , mastication intact, gag diminished Cranial Nerve Exam: facial droop: Right, flattening of masolabic/folds: Right, soft palate weakness: Right Results - Laboratory Findings CBC and BMP: 12/25/17 07:25 12/25/17 02:03 Abnormal lab findings: Abnormal lab results RBC 3.76 M/mcL (4.19-5.50) L 12/25/17 02:03 Hgb 11.9 g/dL (12.9-16.9) L 12/25/17 07:25 Hct 35.3 % (37.5-50.1) L 12/25/17 07:25 Glucose 127 mg/dL (70-105) H 12/25/17 02:03 POC Glucose 117 mg/dL (70-99) H 12/24/17 20:36 Troponin I 0.10 ng/mL (< 0.04) H* 12/25/17 07:25 Urine Blood Large (Negative) H 12/24/17 14:37 Ur Leukocyte Esterase Small (Negative) H 12/24/17 14:37 Urine Microscopic RBC TNTC per hpf (0-3) H 12/24/17 14:37 Urine Microscopic WBC 3-5 per hpf (0-3) H 12/24/17 14:37 Ur Squamous Epith Cells Many per lpf (None-Few) H 12/24/17 14:37 Ur Renal Epithelial Cell Moderate per hpf (None-Few) H 12/24/17 14:37 Ur Culture Indicated? NO. (NO) A 12/24/17 14:37 Consult Discharge Plan - Plan Referrals: Hasmukh Esteves DO [Primary Care Provider] -
--- NOTE | 2017-12-25 16:28 | Electrocardiograph Report ---
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
[2017-12-25] MEDS: Gabapentin 300 MG CAPSULE PO SCH (20:35)
[2017-12-25] MEDS: Mirtazapine 15 MG TABLET PO SCH (20:35)
[2017-12-25] MEDS ORDERED: Gabapentin 300 MG CAPSULE GTUBE SCH (21:00)
[2017-12-25] MEDS ORDERED: OXYCODONE Oral CONC 10 MG/0.5 ML ORAL.SYG SL ONE (23:25)
--- NOTE | 2017-12-26 06:52 | Event Note ---
Date of Encounter: 12/26/17 Time of Encounter: 06:51 ultrasound shows no large clots in the bladder. no concerning renal findings. urine has started to clear. ok to observe. cautiously restart anticoagulation if necessary. electing to hold off on further workup bc of age and comorbidities.
[2017-12-26 07:09] LABS: Basophils # 0.1 K/mcL (0.0-0.2); Basophils % 0.6 %; Eosinophils # 0.6 K/mcL (0.0-0.6); Eosinophils % 5.4 %; Hematocrit 37.8 % (37.5-50.1); Hemoglobin 12.7 g/dL (12.9-16.9); Immature Granulocytes % 0.3 % (0-4); Lymphocytes # 3.3 K/mcL (0.6-4.6); Lymphocytes % 28.3 %; Mean Corpuscular HGB Conc 33.6 g/dL (31.6-35.5); Mean Corpuscular Hemoglobin 32.1 pg (28.0-33.3); Mean Corpuscular Volume 95.5 fL (83.0-100.0); Mean Platelet Volume 11.9 fL (9.4-12.4); Monocytes # 1.2 K/mcL (0.0-1.3); Monocytes % 10.1 %; Neutrophils # 6.5 K/mcL (1.6-8.9); Platelet Count 150 K/mcL (140-400); Red Blood Count 3.96 M/mcL (4.19-5.50); Red Cell Distribution Width 13.8 % (11.5-14.5); Segmented Neutrophils % 55.3 %
[2017-12-26 07:28] LABS: BUN/Creatinine Ratio 23 (6-26); Blood Urea Nitrogen 16 mg/dL (8-23); Calcium 9.7 mg/dL (8.6-10.3); Carbon Dioxide 27 mEq/L (23-29); Chloride 104 mEq/L (98-107); Glucose 139 mg/dL (70-105); Osmolality,Calculated 291 (280-300); Potassium 4.1 mEq/L (3.5-5.1); Sodium 139 mEq/L (136-145); eGFR For Non-African Americans > 60 (> 60)
[2017-12-26] MEDS: Isosorbide MONOnitrate (24 HR) 30 MG TAB.ER.24H PO SCH (08:40)
[2017-12-26] MEDS: Multivit/Ca/Min/Fe/FA 1 TAB TABLET PO SCH (08:40)
[2017-12-26] MEDS: Aspirin 81 MG TAB.CHEW PO SCH (08:40)
[2017-12-26] MEDS: Lisinopril 20 MG TABLET PO SCH (08:41)
[2017-12-26] MEDS ORDERED: Aspirin 81 MG TAB.CHEW GTUBE SCH (09:00)
[2017-12-26] MEDS ORDERED: Multivit/Ca/Min/Fe/FA 1 TAB TABLET GTUBE SCH (09:00)
[2017-12-26] MEDS ORDERED: Lisinopril 20 MG TABLET GTUBE SCH (09:00)
--- NOTE | 2017-12-26 17:39 | Internal Med Progress Note ---
Date of Encounter: 12/26/17 Time of Encounter: 17:37 - Assessment and plan (1) Dysarthria Current Visit: Yes Status: Acute Assessment and plan: 87-year-old gentleman with prior history of stroke presented with acute onset of dysarthria, family was concerned about the patient had another stroke, MRI of brain revealed acute left-sided stroke, neurology was following. Regarding the etiology of the stroke, patient does have history of atrial fibrillation, however he is not on Coumadin for unknown reason, he was on aspirin and Plavix prior to admission. There is a strong reason as patient stroke is caused by atrial fibrillation related emboli. We will discuss with the family about risk and benefits of Coumadin. Aspiration precaution. (2) Cardiac enzymes elevated Current Visit: Yes Status: Acute Assessment and plan: This appears to be chronic. No chest pain moist at this time. (3) Diabetes Current Visit: No Status: Chronic Assessment and plan: Blood sugars have been stable patient will resume diet as well as nutritional supplements Accu-Cheks before meals and at bedtime with sliding scale insulin. Qualifiers: Diabetes mellitus type: type 2 Diabetes mellitus manager long term care insulin use: with [facility] use Diabetes mellitus complication status: without complication Qualified Code(s): E11.9 - Type 2 diabetes mellitus without complications; Z79.4 - nursing home (current) use of insulin (4) Atrial fibrillation Current Visit: No Status: Chronic Assessment and plan: Continue home medications-presently rate controlled Qualifiers: Atrial fibrillation type: chronic Qualified Code(s): I48.2 - Chronic atrial fibrillation (5) Systolic CHF Current Visit: No Status: Acute Assessment and plan: Will continue home medications-appears to be stable we will monitor intake output daily weights Qualifiers: Heart failure chronicity: chronic Qualified Code(s): I50.22 - Chronic systolic (congestive) heart failure (6) History of CVA (cerebrovascular accident) Current Visit: No Status: Chronic Assessment and plan: Patient with prior CVA with right-sided deficits He is on aspirin and Plavix statin (7) Gross hematuria Current Visit: Yes Status: Acute Assessment and plan: resolved - Time Spent With Patient Total time spent is greater than 50% in coordination of care (as documented) at patient's floor/unit and/or counseling patient: Greater than 35 minutes - Subjective Interval history: Patient resting, he has no complaints. - Constitutional Vitals: Temp Pulse Resp BP Pulse Ox 98.3 F 48 14 130/67 100 12/26/17 15:52 12/26/17 15:52 12/26/17 15:52 12/26/17 15:52 12/26/17 15:52 General appearance: Present: A&O X 1. Absent: answers questions appropriately Exam: PHYSICAL EXAMINATION: GENERAL APPEARANCE: The patient is alert, oriented and in no acute distress. HEENT: Head is normocephalic. The sinuses are nontender. Pupils are equal and reactive. The nares are patent. Oropharynx clear without lesions. NECK: Supple without lymphadenopathy. HEART: Regular rate and rhythm. LUNGS: No crackles or wheezes are heard. ABDOMEN: Soft, nontender, nondistended with good bowel sounds heard. Inguinal area is normal. EXTREMITIES: Without cyanosis, clubbing or edema. NEUROLOGICAL: Right-sided weakness noted. SKIN: Warm and dry without any rash. Internal Medicine: Result - Labs CBC & Chem 7: 12/26/17 05:34 12/26/17 05:34 Labs: Short CBC 12/26/17 Range/Units 05:34 WBC 11.8 H (4.3-11.1) K/mcL Hgb 12.7 L (12.9-16.9) g/dL Hct 37.8 (37.5-50.1) % Plt Count 150 (140-400) K/mcL Neutrophils # 6.5 (1.6-8.9) K/mcL BMP 12/26/17 05:34 Sodium 139 Potassium 4.1 Chloride 104 Carbon Dioxide 27 BUN 16 Creatinine 0.70 Glucose 139 H Calcium 9.7 - ABG Interpretation ABG results: PT/INR, D-dimer PT 11.3 Seconds (9.4-12.1) 12/24/17 14:57 - Impressions Impressions Echocardiogram 12/25/17 14:26 Impressions: LVEF 45%. LV systolic dysfunction appears global although not all LV wall segments are well visualized. Mild left ventricular diastolic dysfunction. Increased LV wall thickness - measurements not well obtained. Normal right ventricular structure and function. Mild aortic stenosis. No pulmonary hypertension. Suboptimal contrast injection images to detect PFO. Left Ventricular Wall Motion: Rest Echo Findings The apex, apical inferior, mid inferior, basal inferior, apical septal, mid inferior septal, basal inferior septal, apical lateral, mid anterior lateral, basal anterior lateral, mid anterior septal, mid inferior lateral, basal anterior septal and basal inferior lateral hartman were hypokinetic. The apical anterior, mid anterior and basal anterior hartman were not visualized. Findings: Study Quality * Technically challenging due to suboptimal echocardiographic windows. ECG Findings * Normal sinus rhythm, probably sinus arrhythmia. Left Ventricle * LVEF 45%. * Mild left ventricular diastolic dysfunction. * Increased LV wall thickness - measurements not well obtained. Right Ventricle * Normal right ventricular structure and function. Left Atrium * Moderately dilated left atrium. Right Atrium * Normal right atrial size. Mitral Valve * Normal mitral valve structure. * No mitral stenosis. * Trace mitral regurgitation. Aortic Valve * Aortic valve not well visualized. * Mildly thickened and calcified aortic valve leaflets. * Mild aortic stenosis. PV 2.3m/s, MG 12 mmHg, DI 0.5, AMINA 1.6cm2 Tricuspid Valve * Tricuspid valve not well visualized. * Trace tricuspid regurgitation. * Estimated RA pressure is 3 mmHg. * Estimated RVSP is 17 mmHg. * No pulmonary hypertension. Pulmonic Valve * Suboptimal PV window. Pulmonary Artery * Pulmonary artery not well visualized. Aorta * Not well visualized. Pericardium * There is no pericardial effusion present. Interatrial Septum * No evidence of PFO by color Doppler. * Suboptimal constrast injection images to detect PFO. IVC * Normal IVC dimensions and inspiratory collapse. Retroperitoneum Ultrasound 12/25/17 19:30 IMPRESSION: No hydronephrosis nor shadowing renal pelvic stones. Enlarged prostate gland. D/ / Shena Hopkins Cha, MD / Shena Hopkins Cha, MD Interpreting Provider: Shena Hopkins Cha, MD Brain MRI 12/26/17 07:00 IMPRESSION: 1. Acute left periventricular infarction measures about 2.5 x 0.8 cm. 2. Extensive encephalomalacia and gliosis in the left MCA territory consistent with old left MCA territory infarction. 3. Superimposed diffuse parenchymal volume loss and sequela of moderate chronic microvascular ischemic changes. The findings were sent to the [facility] at 8:19 am on 12/26/2017to be communicated to a licensed caregiver. D/ / 12/26/2017 08:21:59 Jessica Skinner MD / velasquez Interpreting Provider: Jessica Skinner MD - VTE Documentation of Mechanical Device: Intermittent pneumatic compression device Consult Discharge Plan - Plan Referrals: Hasmukh Esteves DO [Primary Care Provider] -
--- NOTE | 2017-12-26 17:43 | Neurology Progress Note ---
Date of Encounter: 12/26/17 Time of Encounter: 17:41 Assessment and Plan (1) Altered mental status Current Visit: Yes Status: Acute Qualifiers: Qualified Code(s): R41.82 - Altered mental status, unspecified (2) Lacunar infarct, acute Current Visit: Yes Status: Acute Patient has suffered an acute left lacunar infarct, likely due to small vessel disease associated with his hypertension Is mellitus and hyperlipidemia. He is more awake today, however he seems to have a mild bit of difficulty with his normal degree of central processing. He is having some difficulty with motor control of the left upper extremity today. However the MRI does not reveal any evidence of right hemispheric abnormality to account for this. He does seem to have some edema of the left hand. In any regard regarding the acute left hemispheric lacunar infarct, her only other choice is to start him on Plavix. Unfortunately considering this gentleman's risk factors he will still be at risk for future events. He is not a good candidate for anticoagulation. I would also recommend maintaining aspirin along with the Plavix. At this juncture however from a neurologic perspective there is not much else to offer. Certainly physical therapy to strengthen and improve dexterity with his left upper extremity as an outpatient may be beneficial. I will reevaluate him at your request. Subjective Interval history: The chart was reviewed, patient was seen and examined. Currently he is sitting up in bed being attended to by family. He is more awake and alert today. Family is currently feeding him. He does have some trouble with dexterity of the left upper extremity. His son states that this is unusual for him. He is generally able to feed himself with his left hand. MRI scan of the brain did not reveal further extension of the previous left cerebral infarct. It appears that he has had more lacunar infarctions involving the left periventricular white matter. But again clinically he appears to be more alert today. Objective - Constitutional Vitals: Temp Pulse Resp BP Pulse Ox 98.3 F 48 14 130/67 100 12/26/17 15:52 12/26/17 15:52 12/26/17 15:52 12/26/17 15:52 12/26/17 15:52 - Neurological Exam Motor Examination: Present: other (Patient has long-standing right hemiplegia. He does have some spasticity of the right upper extremity and does not like to have it manipulated. The right lower extremity is externally rotated. There is no volitional movement of the right upper or right lower extremities.) Motor examination - left side: 3/5: deltoids, biceps, triceps, 5/5: hip flexors , barge captain, quadriceps, tibialis Anterior, toe extension (EHL), plantarflexion Sensation intact: Present: other (Difficult to assess sensory functions in the patient who is severely dysarthric and dysphasic.) Mental Status Examination: Present: awake, alert, oriented to person, follows simple commands, expressive aphasia, impaired cognition (Unfortunately patient has difficulty communicating however he is able to talk some. Sometimes I am able to understand things that he is saying.) Cranial nerve examination: Present: PERRL, EOMI (He does have some left gaze preference), mastication intact, gag diminished Cranial Nerve Exam: facial droop: Right, flattening of masolabic/folds: Right, soft palate weakness: Right - VTE Documentation of Mechanical Device: Intermittent pneumatic compression device Results - Laboratory Findings CBC and BMP: 12/26/17 05:34 12/26/17 05:34 Abnormal lab findings: Abnormal lab results WBC 11.8 K/mcL (4.3-11.1) H 12/26/17 05:34 RBC 3.96 M/mcL (4.19-5.50) L 12/26/17 05:34 Hgb 12.7 g/dL (12.9-16.9) L 12/26/17 05:34 Glucose 139 mg/dL (70-105) H 12/26/17 05:34 POC Glucose 117 mg/dL (70-99) H 12/24/17 20:36 Troponin I 0.10 ng/mL (< 0.04) H* 12/25/17 07:25 Urine Blood Large (Negative) H 12/24/17 14:37 Ur Leukocyte Esterase Small (Negative) H 12/24/17 14:37 Urine Microscopic RBC TNTC per hpf (0-3) H 12/24/17 14:37 Urine Microscopic WBC 3-5 per hpf (0-3) H 12/24/17 14:37 Ur Squamous Epith Cells Many per lpf (None-Few) H 12/24/17 14:37 Ur Renal Epithelial Cell Moderate per hpf (None-Few) H 12/24/17 14:37 Ur Culture Indicated? NO. (NO) A 12/24/17 14:37 Consult Discharge Plan - Plan Referrals: Hasmukh Esteves DO [Primary Care Provider] -
[2017-12-26] MEDS: Mirtazapine 15 MG TABLET PO SCH (20:53)
[2017-12-26] MEDS: Gabapentin 300 MG CAPSULE PO SCH (20:53)
[2017-12-26] MEDS ORDERED: OXYCODONE Oral CONC 10 MG/0.5 ML ORAL.SYG SL ONE (21:30)
[2017-12-27 07:10] LABS: Basophils # 0.1 K/mcL (0.0-0.2); Basophils % 0.7 %; Eosinophils # 0.7 K/mcL (0.0-0.6); Eosinophils % 6.4 %; Hematocrit 35.2 % (37.5-50.1); Immature Granulocytes % 0.3 % (0-4); Lymphocytes # 3.1 K/mcL (0.6-4.6); Lymphocytes % 30.2 %; Mean Corpuscular HGB Conc 34.1 g/dL (31.6-35.5); Mean Corpuscular Hemoglobin 32.6 pg (28.0-33.3); Mean Corpuscular Volume 95.7 fL (83.0-100.0); Mean Platelet Volume 10.2 fL (9.4-12.4); Monocytes # 1.1 K/mcL (0.0-1.3); Monocytes % 10.8 %; Neutrophils # 5.2 K/mcL (1.6-8.9); Platelet Count 189 K/mcL (140-400); Red Blood Count 3.68 M/mcL (4.19-5.50); Red Cell Distribution Width 13.9 % (11.5-14.5); Segmented Neutrophils % 51.6 %
[2017-12-27 07:35] LABS: BUN/Creatinine Ratio 23 (6-26); Blood Urea Nitrogen 18 mg/dL (8-23); Calcium 9.7 mg/dL (8.6-10.3); Carbon Dioxide 26 mEq/L (23-29); Chloride 104 mEq/L (98-107); Glucose 138 mg/dL (70-105); Osmolality,Calculated 290 (280-300); Potassium 4.1 mEq/L (3.5-5.1); Sodium 138 mEq/L (136-145); eGFR For Non-African Americans > 60 (> 60)
[2017-12-27] MEDS: Isosorbide MONOnitrate (24 HR) 30 MG TAB.ER.24H PO SCH (10:00)
[2017-12-27] MEDS: Lisinopril 20 MG TABLET PO SCH (10:01)
[2017-12-27] MEDS: Aspirin 81 MG TAB.CHEW PO SCH (10:01)
[2017-12-27] MEDS: Multivit/Ca/Min/Fe/FA 1 TAB TABLET PO SCH (10:01)
--- NOTE | 2017-12-27 11:04 | Internal Med Progress Note ---
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 Presented with worsening garbled speech and confusion. Head CT with evidence of prior infarct. Brain MRI with acute left periventricular infarct. TTE with EF 55%, no evidence of PFO or cardiac source of emboli. Evaluated by neurology who suspected small vessel disease secondary to hypertension and diabetes. On ASA at home. Plavix started per neurology recommendations. Patient will remain at high risk for future events secondary to multiple risk factors and he has not a candidate for anticoagulation. Continue ASA, Plavix, statin (2) Seizure Current Visit: Yes Status: Acute Assessment and plan: with possible seizure activity on 12/27/17 exam. Patient was sitting up in a wheelchair when family reported whole body jerking. Upon exam patient was staring blankly and yawning continuously. Now appears to be postictal. Neurology notified. Hold on ATB at this time. Seizure precautions. (3) Cardiac enzymes elevated Current Visit: Yes Status: Acute Assessment and plan: Troponins chronically elevated. Asymptomatic. Denied chest pain. (4) Diabetes Current Visit: No Status: Chronic Assessment and plan: per hx. appears to be diet controlled. Continue to monitor blood sugar. Qualifiers: Diabetes mellitus type: type 2 Diabetes mellitus terminal manager insulin use: with terminal manager use Diabetes mellitus complication status: without complication Qualified Code(s): E11.9 - Type 2 diabetes mellitus without complications; Z79.4 - manager intermediate (current) use of insulin (5) Atrial fibrillation Current Visit: No Status: Chronic Assessment and plan: per hx. Rate controlled. Not anticoagulation candidate. Continue home BB. Qualifiers: Atrial fibrillation type: chronic Qualified Code(s): I48.2 - Chronic atrial fibrillation (6) Systolic CHF Current Visit: No Status: Acute Assessment and plan: TTE with EF 45%, global systolic dysfunction and mild diastolic dysfunction. Not on diuretics. Appears compensated. Continue home ACEI, isosorbide, ASA, BB Qualifiers: Heart failure chronicity: chronic Qualified Code(s): I50.22 - Chronic systolic (congestive) heart failure (7) Gross hematuria Current Visit: Yes Status: Acute Assessment and plan: resolved. Hgb stable (8) DVT prophylaxis Current Visit: Yes Status: Acute Assessment and plan: SCD - Time Spent With Patient Total time spent is greater than 50% in coordination of care (as documented) at patient's floor/unit and/or counseling patient: - Subjective Interval history: Seen and examined at bedside. Patient is new to me, information obtained from chart review and family as patient is alert to self only and difficult to understand secondary to slurred speech from CVA. Initial exam was unremarkable; family reported patient was back to baseline. As called back to the proximal in hour later as patient was having what appeared to be seizure-like activity. Appears postictal my exam. Discussed with Dr. Garcia and will hold on discharge and neurology will reevaluate. - Constitutional Vitals: Temp Pulse Resp BP Pulse Ox 98.1 F 67 14 171/84 97 12/27/17 07:45 12/27/17 07:45 12/27/17 07:45 12/27/17 07:45 12/27/17 07:45 General appearance: Present: A&O X 1. Absent: answers questions appropriately - Head Head exam: Present: atraumatic, normocephalic - Eye Eye exam: Present: PERRL, conjuntiva pink, sclera anicteric Pupils: Present: PERRL - Neck Neck exam general surgery: Present: supple, trachea midline. Absent: lymphadenopathy - Respiratory Respiratory exam: Present: CTAB. Absent: accessory muscle use, rales, rhonchi, wheezes - Cardiovascular Cardiovascular exam: Present: RRR, +S1, +S2. Absent: diastolic murmur, gallop, rubs, systolic murmur - GI/Abdominal GI/Abdominal exam: Present: normal bowel sounds, soft, no peritoneal signs. Absent: distended, tenderness - Extremities Exam Extremities exam: Present: warm, radial pulses palpable and symmetrical. Absent : calf tenderness, cyanotic, pedal edema - Neurological Exam Neurological exam: Present: CN II-XII intact, facial droop, speech deficit. Absent: strengths equal and symetr throughout (Right upper and lower extreme knee paralysis with right facial droop and slurred speech.), pronater drift - Skin Skin exam: Present: dry, intact Internal Medicine: Result - Labs CBC & Chem 7: 12/27/17 06:58 12/27/17 06:58 Labs: Short CBC 12/27/17 Range/Units 06:58 WBC 10.2 (4.3-11.1) K/mcL Hgb 12.0 L (12.9-16.9) g/dL Hct 35.2 L (37.5-50.1) % Plt Count 189 (140-400) K/mcL Neutrophils # 5.2 (1.6-8.9) K/mcL BMP 12/27/17 06:58 Sodium 138 Potassium 4.1 Chloride 104 Carbon Dioxide 26 BUN 18 Creatinine 0.77 Glucose 138 H Calcium 9.7 - ABG Interpretation ABG results: PT/INR, D-dimer PT 11.3 Seconds (9.4-12.1) 12/24/17 14:57 - Impressions Impressions Brain MRI 12/26/17 07:00 IMPRESSION: 1. Acute left periventricular infarction measures about 2.5 x 0.8 cm. 2. Extensive encephalomalacia and gliosis in the left MCA territory consistent with old left MCA territory infarction. 3. Superimposed diffuse parenchymal volume loss and sequela of moderate chronic microvascular ischemic changes. The findings were sent to the Radiology Results [facility] at 8:19 am on 12/26/2017to be communicated to a licensed caregiver. D/ / 12/26/2017 08:21:59 Jessica Skinner MD / [email or web address] Interpreting Provider: Jessica Skinner MD - VTE Documentation of Mechanical Device: Intermittent pneumatic compression device Consult Discharge Plan - Plan Referrals: Hasmukh Esteves DO [Primary Care Provider] -
[2017-12-27] MEDS ORDERED: *HR* Dextrose 50 % in Water (Syg) 50 ML SYRINGE IVP PRN (11:12)
[2017-12-27] MEDS ORDERED: D5% in Water 1,000 ML IVC PRN (11:12)
[2017-12-27] MEDS ORDERED: Dextrose Gel 15 GM/37.5 ML TUBE PO PRN ×2 (11:12)
[2017-12-27] MEDS ORDERED: levETIRAcetam 1,000 MG in 0.9 % Sodium Chloride 100 ML IVPB ONE (11:30)
--- NOTE | 2017-12-27 16:48 | EEG/EMG/Oth Biometrics Report ---
EEG Procedure Report Date of procedure: 12/27/17 EEG Procedure: Routine EEG (Patient has a known history of a large left cerebral hemispheric infarct.) Procedure Note: This is a report of a 21 channel bipolar and referential montage EEG. There is diffuse bilateral hemispheric slowing in the theta and delta frequency ranges. This slowing however is more pronounced in the left frontal temporal leads. This persists throughout much of the recording. Hyperventilation is not performed during the recording. Periods of drowsiness and stage II sleep are identified as reference by dropout of the posterior dominant rhythm and emergence of vertex activity K complexes and sleep spindles. These findings however are not is well-developed and the left cerebral hemisphere. Photostimulation is performed and does not produce a driving response. The EKG rhythm strip reveals normal sinus rhythm at 60 bpm. Impressions: This EEG recording is abnormal consistent with severe generalized encephalopathy. There is also superimposed slowing in the left frontal temporal lobe. Etiologies to explain this interpretation might include toxic, metabolic, postictal, degenerative. Etiologies to explain the left hemispheric slowing might include vascular, neoplastic, infectious, traumatic, postictal or degenerative. Please correlate clinically.
--- NOTE | 2017-12-27 17:42 | Neurology Progress Note ---
Date of Encounter: 12/27/17 Time of Encounter: 17:40 Assessment and Plan (1) Altered mental status Current Visit: Yes Status: Acute Qualifiers: Qualified Code(s): R41.82 - Altered mental status, unspecified (2) Lacunar infarct, acute Current Visit: Yes Status: Acute The MRI identified an extension of the previous infarct in the left cerebral hemisphere. Lacunar infarct was identified. I am concerned however of the weakness of the left hand. Because he is unable to talk it is difficult to definitely determine whether not this may have been another small infarct perhaps in the left cerebellum or the right cerebral hemisphere. But he has definite weakness of the left upper extremity which is new according to his son. I would like to get adjusted diffusion MRI to see whether not anything acute is present. If not, then I would attribute this to something mechanical or perhaps nerve related, in which case I would complete an EMG as an outpatient. (3) Seizure Current Visit: Yes Status: Acute Patient has experienced an episode of seizure. He certainly has significant atrophy and scarring of the left frontal temporal region of the brain as a result of the previous infarct. This can act as an irritable focus. I am concerned that he could have more seizures assess AEDs are indicated. He has not had any further seizures. He is apparently tolerating the medication well. He is back to his normal baseline status. Subjective Interval history: Chart was reviewed, the patient was seen and examined. Apparently he had a generalized tonic-clonic seizure earlier today. The episode was witnessed by a relative. Currently he is awake and alert and back to his baseline status. I did order an EEG which I interpreted myself. The study showed moderate generalized encephalopathy along with bihemispheric slowing, left more so than the right. However there is no evidence of seizure activity identified on that study. I gave him over to load him on levetiracetam 1000 mg. He should be started on a maintenance dose of 500 mg twice a day. He still has some paucity of movement of the left hand. Objective - Constitutional Vitals: Temp Pulse Resp BP Pulse Ox 98.5 F 58 17 110/57 97 12/27/17 15:31 12/27/17 15:31 12/27/17 15:31 12/27/17 15:31 12/27/17 15:31 - Neurological Exam Motor Examination: Present: other (Patient has long-standing right hemiplegia. He does have some spasticity of the right upper extremity and does not like to have it manipulated. The right lower extremity is externally rotated. There is no volitional movement of the right upper or right lower extremities. He is able to raise the left arm against gravity but he cannot raise it completely above his head. He also has paucity of movement of his left hand. He can move the left leg freely.) Motor examination - left side: 3/5: deltoids, biceps, triceps, 5/5: hip flexors , location director, quadriceps, tibialis Anterior, toe extension (EHL), plantarflexion Sensation intact: Present: other (Difficult to assess sensory functions in the patient who is severely dysarthric and dysphasic.) Mental Status Examination: Present: awake, alert, oriented to person, follows simple commands, expressive aphasia, impaired cognition (Unfortunately patient has difficulty communicating however he is able to talk some. Sometimes I am able to understand things that he is saying.) Cranial nerve examination: Present: PERRL, EOMI (He does have some left gaze preference), mastication intact, gag diminished Cranial Nerve Exam: facial droop: Right, flattening of masolabic/folds: Right, soft palate weakness: Right - VTE Documentation of Mechanical Device: Intermittent pneumatic compression device Results - Laboratory Findings CBC and BMP: 12/27/17 06:58 12/27/17 06:58 Abnormal lab findings: Abnormal lab results RBC 3.68 M/mcL (4.19-5.50) L 12/27/17 06:58 Hgb 12.0 g/dL (12.9-16.9) L 12/27/17 06:58 Hct 35.2 % (37.5-50.1) L 12/27/17 06:58 Eosinophils # 0.7 K/mcL (0.0-0.6) H 12/27/17 06:58 Glucose 138 mg/dL (70-105) H 12/27/17 06:58 POC Glucose 117 mg/dL (70-99) H 12/24/17 20:36 Troponin I 0.10 ng/mL (< 0.04) H* 12/25/17 07:25 Urine Blood Large (Negative) H 12/24/17 14:37 Ur Leukocyte Esterase Small (Negative) H 12/24/17 14:37 Urine Microscopic RBC TNTC per hpf (0-3) H 12/24/17 14:37 Urine Microscopic WBC 3-5 per hpf (0-3) H 12/24/17 14:37 Ur Squamous Epith Cells Many per lpf (None-Few) H 12/24/17 14:37 Ur Renal Epithelial Cell Moderate per hpf (None-Few) H 12/24/17 14:37 Ur Culture Indicated? NO. (NO) A 12/24/17 14:37 Consult Discharge Plan - Plan Referrals: Hasmukh Esteves DO [Primary Care Provider] -
[2017-12-27] MEDS: Mirtazapine 15 MG TABLET PO SCH (20:44)
[2017-12-27] MEDS: Gabapentin 300 MG CAPSULE PO SCH (20:45)
[2017-12-28 08:10] LABS: Estimated Average Glucose 194 mg/dl; Hemoglobin A1C 8.4 %
[2017-12-28] MEDS: Lisinopril 20 MG TABLET PO SCH (08:16)
[2017-12-28] MEDS: Aspirin 81 MG TAB.CHEW PO SCH (08:16)
[2017-12-28] MEDS: Isosorbide MONOnitrate (24 HR) 30 MG TAB.ER.24H PO SCH (08:16)
[2017-12-28] MEDS: Multivit/Ca/Min/Fe/FA 1 TAB TABLET PO SCH (08:17)
--- NOTE | 2017-12-28 08:27 | Neurology Progress Note ---
Date of Encounter: 12/28/17 Time of Encounter: 08:25 Assessment and Plan (1) Altered mental status Current Visit: Yes Status: Acute Qualifiers: Qualified Code(s): R41.82 - Altered mental status, unspecified (2) Lacunar infarct, acute Current Visit: Yes Status: Acute I see no evidence of an acute cerebral infarct which explains the left upper extremity weakness. My suspicion now is that it may just be from edema associated with the previous IV. I will simply recommend maintaining the aspirin and Plavix combination for stroke prevention. Otherwise risk factor management is also paramount. (3) Seizure Current Visit: Yes Status: Acute I believe that he likely experienced a partial seizure with secondary generalization. The severely injured left cerebral hemisphere can certainly act as an irritable focus. He has not had any further seizures since the initial episode. I will recommend maintaining Lamictal 500 mg twice a day. From a neurologic perspective he is otherwise stabilized. He may discharge him at your discretion. Case was discussed with the hospitalist. Subjective Interval history: The chart was reviewed, the patient was seen and examined. Patient's is present. No incidence were reported overnight. Patient is sleeping upon my entering the room, he arouses to voice. He does make eye contact, he follows some simple commands. He still has some difficulty with dexterity of the left upper extremity. I personally reviewed the MRI scan of the brain which revealed no new infarcts or anything to explain this left upper extremity weakness from a neurologic perspective. The name left hemispheric infarcts remain present along with the chronic damage from the previous left hemispheric infarct. The hand is not tender to touch, I see no evidence of cellulitis. Otherwise vital signs are stable, he is afebrile. Neurologic examination remains unchanged. Objective - Constitutional Vitals: Temp Pulse Resp BP Pulse Ox 98.6 F 58 16 145/57 97 12/28/17 07:35 12/28/17 07:35 12/28/17 07:35 12/28/17 07:35 12/28/17 07:35 - Neurological Exam Motor Examination: Present: other (Patient has long-standing right hemiplegia. He does have some spasticity of the right upper extremity and does not like to have it manipulated. The right lower extremity is externally rotated. There is no volitional movement of the right upper or right lower extremities. He is able to raise the left arm against gravity but he cannot raise it completely above his head. He also has paucity of movement of his left hand. He can move the left leg freely.) Motor examination - left side: 3/5: deltoids, biceps, triceps, 5/5: hip flexors , elevator adjuster, quadriceps, tibialis Anterior, toe extension (EHL), plantarflexion Sensation intact: Present: other (Difficult to assess sensory functions in the patient who is severely dysarthric and dysphasic.) Mental Status Examination: Present: awake, alert, oriented to person, follows simple commands, expressive aphasia, impaired cognition (Unfortunately patient has difficulty communicating however he is able to talk some. Sometimes I am able to understand things that he is saying.) Cranial nerve examination: Present: PERRL, EOMI (He does have some left gaze preference), mastication intact, gag diminished Cranial Nerve Exam: facial droop: Right, flattening of masolabic/folds: Right, soft palate weakness: Right - VTE Documentation of Mechanical Device: Intermittent pneumatic compression device Results - Laboratory Findings CBC and BMP: 12/27/17 06:58 12/27/17 06:58 Abnormal lab findings: Abnormal lab results RBC 3.68 M/mcL (4.19-5.50) L 12/27/17 06:58 Hgb 12.0 g/dL (12.9-16.9) L 12/27/17 06:58 Hct 35.2 % (37.5-50.1) L 12/27/17 06:58 Eosinophils # 0.7 K/mcL (0.0-0.6) H 12/27/17 06:58 Glucose 138 mg/dL (70-105) H 12/27/17 06:58 POC Glucose 117 mg/dL (70-99) H 12/24/17 20:36 Hemoglobin A1c 8.4 % (-5.6) H 12/28/17 03:56 Troponin I 0.10 ng/mL (< 0.04) H* 12/25/17 07:25 Urine Blood Large (Negative) H 12/24/17 14:37 Ur Leukocyte Esterase Small (Negative) H 12/24/17 14:37 Urine Microscopic RBC TNTC per hpf (0-3) H 12/24/17 14:37 Urine Microscopic WBC 3-5 per hpf (0-3) H 12/24/17 14:37 Ur Squamous Epith Cells Many per lpf (None-Few) H 12/24/17 14:37 Ur Renal Epithelial Cell Moderate per hpf (None-Few) H 12/24/17 14:37 Ur Culture Indicated? NO. (NO) A 12/24/17 14:37 Consult Discharge Plan - Plan Referrals: Hasmukh Esteevs DO [Primary Care Provider] -
[2017-12-28 11:38] VITALS: BP 97/56
--- NOTE | 2017-12-28 12:34 | Internal Med Progress Note ---
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 Presented with worsening garbled speech and confusion. Head CT with evidence of prior infarct. Brain MRI with acute left periventricular infarct. TTE with EF 55%, no evidence of PFO or cardiac source of emboli. Evaluated by neurology who suspected small vessel disease secondary to hypertension and diabetes. On ASA at home. Plavix started per neurology recommendations. Patient will remain at high risk for future events secondary to multiple risk factors and he has not a candidate for anticoagulation. Continue ASA, Plavix, statin (2) Seizure Current Visit: Yes Status: Acute Assessment and plan: with possible seizure activity on 12/27/17 exam. Patient was sitting up in a wheelchair when family reported whole body jerking. Upon exam patient was staring blankly and yawning continuously. Now appears to be postictal. Neurology notified. Hold on ATB at this time. Seizure precautions. (3) Cardiac enzymes elevated Current Visit: Yes Status: Acute Assessment and plan: Troponins chronically elevated. Asymptomatic. Denied chest pain. (4) Diabetes Current Visit: No Status: Chronic Assessment and plan: per hx. appears to be diet controlled. Continue to monitor blood sugar. Qualifiers: Diabetes mellitus type: type 2 Diabetes mellitus termite technician insulin use: with termite technician use Diabetes mellitus complication status: without complication Qualified Code(s): E11.9 - Type 2 diabetes mellitus without complications; Z79.4 - terminologist (current) use of insulin (5) Atrial fibrillation Current Visit: No Status: Chronic Assessment and plan: per hx. Rate controlled. Not anticoagulation candidate. Continue home BB. Qualifiers: Atrial fibrillation type: chronic Qualified Code(s): I48.2 - Chronic atrial fibrillation (6) Systolic CHF Current Visit: No Status: Acute Assessment and plan: TTE with EF 45%, global systolic dysfunction and mild diastolic dysfunction. Not on diuretics. Appears compensated. Continue home ACEI, isosorbide, ASA, BB Qualifiers: Heart failure chronicity: chronic Qualified Code(s): I50.22 - Chronic systolic (congestive) heart failure (7) Gross hematuria Current Visit: Yes Status: Acute Assessment and plan: resolved. Hgb stable (8) DVT prophylaxis Current Visit: Yes Status: Acute Assessment and plan: SCD - Time Spent With Patient Total time spent is greater than 50% in coordination of care (as documented) at patient's floor/unit and/or counseling patient: - Subjective Interval history: Seen and examined at bedside; he is sleeping with both eyes closed. He will open eyes with verbal and tactile stimuli but does not participate in exam. at bedside and said patient sat up for breakfast and all of his breakfast. She feels he is back to baseline. expresses concern for patient returning back to the [place] and requesting to speak with foster care social worker for possible placement to new ECF. - Constitutional Vitals: Temp Pulse Resp BP Pulse Ox 98.6 F 96 16 97/56 95 12/28/17 11:34 12/28/17 11:34 12/28/17 11:34 12/28/17 11:34 12/28/17 11:34 General appearance: Present: A&O X 1. Absent: answers questions appropriately - Head Head exam: Present: atraumatic, normocephalic - Eye Eye exam: Present: PERRL, conjuntiva pink, sclera anicteric Pupils: Present: PERRL - Neck Neck exam general surgery: Present: supple, trachea midline. Absent: lymphadenopathy - Respiratory Respiratory exam: Present: CTAB. Absent: accessory muscle use, rales, rhonchi, wheezes - Cardiovascular Cardiovascular exam: Present: RRR, +S1, +S2. Absent: diastolic murmur, gallop, rubs, systolic murmur - GI/Abdominal GI/Abdominal exam: Present: normal bowel sounds, soft, no peritoneal signs. Absent: distended, tenderness - Extremities Exam Extremities exam: Present: pedal edema (non-pitting edema to bilateral hands), warm, radial pulses palpable and symmetrical. Absent: calf tenderness, cyanotic - Neurological Exam Neurological exam: Present: CN II-XII intact, strengths equal and symetr throughout (Right upper and lower extremity paralysis). Absent: no focal deficits, pronater drift, facial droop, speech deficit - Skin Skin exam: Present: dry, intact Internal Medicine: Result - Labs CBC & Chem 7: 12/27/17 06:58 12/27/17 06:58 - ABG Interpretation ABG results: PT/INR, D-dimer PT 11.3 Seconds (9.4-12.1) 12/24/17 14:57 - Impressions Impressions Brain MRI 12/27/17 17:51 IMPRESSION: Acute on chronic infarction within the left MCA territory. Small acute infarction along the medial margin of the large remote left MCA territory infarct. Extensive chronic microangiopathic ischemic changes of cerebral white matter. Findings were discussed with Dr. Kelley at 7:11 am on 12/28/2017. D/ / 12/28/2017 07:06:59 Ja Garza / [email or web address] Interpreting Provider: Ja Garza - VTE Documentation of Mechanical Device: Intermittent pneumatic compression device Consult Discharge Plan - Plan Referrals: Hasmukh Esteves DO [Primary Care Provider] -
--- NOTE | 2017-12-28 12:38 | Discharge Summary ---
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 Presented with worsening garbled speech and confusion. Head CT with evidence of prior infarct. Brain MRI with acute left periventricular infarct. TTE with EF 55%, no evidence of PFO or cardiac source of emboli. Evaluated by neurology who suspected small vessel disease secondary to hypertension and diabetes. On ASA at home. Plavix started per neurology recommendations. Patient will remain at high risk for future events secondary to multiple risk factors and he has not a candidate for anticoagulation. Continue ASA, Plavix, statin (2) Seizure Priority: Primary Status: Acute Assessment and Plan: had seizure activity on 12/27/17 while inpatient. Evaluated by Neurology who suspected partial seizure with secondary generalization. Cont Keppra 500mg BID per neurology recommendations (3) Cardiac enzymes elevated Priority: Primary Status: Acute Assessment and Plan: Troponins chronically elevated. Asymptomatic. Denied chest pain. (4) Diabetes Priority: Secondary Status: Chronic Assessment and Plan: per hx. Hgb A1c 8.4%. Blood sugars acceptable. Currently not on treatment for diabetes. With advanced age and comorbidities we will defer initiating insulin or oral hypo-glycemic at this time. Qualifiers: Diabetes mellitus type: type 2 Diabetes mellitus halfway insulin use: with halfway use Diabetes mellitus complication status: without complication Qualified Code(s): E11.9 - Type 2 diabetes mellitus without complications; Z79.4 - longterm (current) use of insulin (5) Atrial fibrillation Priority: Secondary Status: Chronic Assessment and Plan: per hx. Rate controlled. Not an anticoagulation candidate. Continue home BB. Qualifiers: Atrial fibrillation type: chronic Qualified Code(s): I48.2 - Chronic atrial fibrillation (6) Systolic CHF Priority: Secondary Status: Acute Assessment and Plan: TTE with EF 45%, global systolic dysfunction and mild diastolic dysfunction. Not on diuretics. Appears compensated. Continue home ACEI, isosorbide, ASA, BB Qualifiers: Heart failure chronicity: chronic Qualified Code(s): I50.22 - Chronic systolic (congestive) heart failure (7) Gross hematuria Priority: Primary Status: Acute Assessment and Plan: resolved. Hgb stable Hospital course: Please see assessment and plan for Hospital course Discharge discussed with: patient (Seen and examined at bedside; he is sleeping with both eyes closed. He will open eyes with verbal and tactile stimuli but does not participate in exam. at bedside and said patient sat up for breakfast and all of his breakfast. She feels he is back to baseline. ) - Time Spent with Patient Total time spent providing and/or coordinating discharge services: - Discharge Medications Home Medications: Allopurinol [Zyloprim 300 MG] 300 mg GTUBE DAILY 01/20/17 [History] Aspirin 81 mg GTUBE DAILY 01/20/17 [History] Gabapentin [Neurontin] 300 mg GTUBE HS 01/20/17 [History] Lisinopril [Zestril] 20 mg GTUBE DAILY 01/20/17 [History] Multivitamin [Multi-Day Vitamins] 1 tab GTUBE DAILY 01/20/17 [History] Simvastatin [Zocor] 20 mg GTUBE QPM 01/20/17 [History] Clopidogrel [Plavix] 75 mg PO DAILY #30 tablet 01/23/17 [Rx] Acetaminophen [Tylenol] 650 mg GTUBE TID PRN 08/06/17 [History] Carvedilol [Coreg] 12.5 mg GTUBE DAILY 08/06/17 [History] Insulin Glargine,Hum.rec.anlog [Lantus Solostar] 4 unit SQ HS 08/06/17 [History] Isosorbide MONOnitrate (24 HR) [Imdur] 30 mg PO DAILY 08/06/17 [History] Melatonin 6 mg GTUBE HS PRN 08/06/17 [History] Mirtazapine [Remeron] 15 mg PO HS 08/06/17 [History] Atropine 1% Opth Drops 2 drop SL Q2H 12/24/17 [History] Allergies/Adverse Reactions: 3 Allergy/AdvReac Type Severity Reaction Status Date / Time No Known Allergies Allergy Verified 12/24/17 15:16 Date of admission: 12/24/17 19:34 Primary care physician: Nathalie Park Consults: 12/25/17 01:24 Consult to Urology [CONS] Routine Consulting Provider: Urology Ruth Reason for Consult: hematuria Call Completed: No 12/25/17 11:32 Consult to Nutrition [CONS] Routine Comment: Consulting Provider: NUTRITION Reason for Dietary Consult: Other Other:: PEG tube supplementation 12/27/17 15:16 Consult to Interpret Exam [CONS] Routine Consulting Provider: Myles Garcia Consult to Interpret Exam: Interpret EEG Discharging clinician: Ruby Kent Anticipated date of discharge: 12/28/17 - Constitutional Vitals: Temp Pulse Resp BP Pulse Ox 98.6 F 96 16 97/56 95 12/28/17 11:34 12/28/17 11:34 12/28/17 11:34 12/28/17 11:34 12/28/17 11:34 General appearance: Present: A&O X 1. Absent: answers questions appropriately - Patient Status Disposition: Transfer SNF Condition: Fair Functional capacity at discharge: wheelchair bound Overall status at discharge: patient is progressing back to baseline - Discharge Instructions Follow Up With: Hasmukh Esteves DO [Primary Care Provider] - - Diet and Activity Activity: as per physical therapy Diet: regular diet - VTE Documentation of Mechanical Device: Intermittent pneumatic compression device
--- NOTE | 2017-12-28 13:31 | Physician Discharge Referral ---
ExtendedCare Referral Info Transfer To: ECF Provider in Charge: Ruby Kent CNP Provider in Charge after Transfer: PCP Institutional Level of Care: Skilled - Diagnosis (1) History of CVA (cerebrovascular accident) Status: Chronic (2) Seizure Status: Acute (3) Cardiac enzymes elevated Status: Acute (4) Diabetes Status: Chronic (5) Atrial fibrillation Status: Chronic (6) Systolic CHF Status: Acute (7) Gross hematuria Status: Acute - Transfer Medications Home Medications: Allopurinol [Zyloprim 300 MG] 300 mg GTUBE DAILY 01/20/17 [History] Aspirin 81 mg GTUBE DAILY 01/20/17 [History] Gabapentin [Neurontin] 300 mg GTUBE HS 01/20/17 [History] Lisinopril [Zestril] 20 mg GTUBE DAILY 01/20/17 [History] Multivitamin [Multi-Day Vitamins] 1 tab GTUBE DAILY 01/20/17 [History] Simvastatin [Zocor] 20 mg GTUBE QPM 01/20/17 [History] Clopidogrel [Plavix] 75 mg PO DAILY #30 tablet 01/23/17 [Rx] Acetaminophen [Tylenol] 650 mg GTUBE TID PRN 08/06/17 [History] Carvedilol [Coreg] 12.5 mg GTUBE DAILY 08/06/17 [History] Insulin Glargine,Hum.rec.anlog [Lantus Solostar] 4 unit SQ HS 08/06/17 [History] Isosorbide MONOnitrate (24 HR) [Imdur] 30 mg PO DAILY 08/06/17 [History] Melatonin 6 mg GTUBE HS PRN 08/06/17 [History] Mirtazapine [Remeron] 15 mg PO HS 08/06/17 [History] Atropine 1% Opth Drops 2 drop SL Q2H 12/24/17 [History] Allergies/Adverse Reactions: 3 Allergy/AdvReac Type Severity Reaction Status Date / Time No Known Allergies Allergy Verified 12/24/17 15:16 - Respiratory Orders None Smoking Cessation: Smoking cessation has been advised. For more information, call the [place] Tobacco Quit Line at 5-463-USMW-NOW. - Advance Directives Code Status: DNR-Arrest/Don't Intubate - Mobility Orders Chair - Rehabiliation Orders Rehab Potential: Poor Rehab Orders: Evaluation for Physical Therapy, Evaluation for Occupational Therapy, Evaluation for Speech Therapy - Diet Orders Mechanical Soft CERTIFICATION: I certify that the transfer of the above named patient to an Extended Care Facility is necessary for the continuing treatment of the diagnosis listed. The above information is true and accurate reflection of patient's current condition. Confidential - Redisclosure prohibited without a patient's written consent.
--- NOTE | 2017-12-28 16:26 | Event Note ---
Date of Encounter: 12/28/17 Time of Encounter: 16:[address] Garcia (neurologist) and patient is to be discharged on Keppra 500 mg twice a day not Lamictal. Keppra was inadvertently left off discharge summary. Prescription was written for Keppra 500 twice a day and fax to [facility]. RN notified [facility] as well.
== END 2017-12-28 15:35 | DRG 64 ==
LOC: EMEROO 14:10 → 3BNU 14:10
PROVIDERS: ADMIT Hospitalist; ATTEND Hospitalist

== ENCOUNTER 2018-01-05 21:03 | Inpatient (IN) ==
[2018-01-05 21:45] LABS: Basophils # 0.1 K/mcL (0.0-0.2); Basophils % 0.7 %; Eosinophils # 0.7 K/mcL (0.0-0.6); Eosinophils % 6.1 %; Immature Granulocytes % 0.4 % (0-4); Lymphocytes # 2.6 K/mcL (0.6-4.6); Mean Corpuscular HGB Conc 34.3 g/dL (31.6-35.5); Mean Corpuscular Hemoglobin 32.3 pg (28.0-33.3); Mean Corpuscular Volume 94.3 fL (83.0-100.0); Mean Platelet Volume 10.1 fL (9.4-12.4); Monocytes # 1.1 K/mcL (0.0-1.3); Monocytes % 9.3 %; Neutrophils # 6.8 K/mcL (1.6-8.9); Platelet Count 245 K/mcL (140-400); Red Blood Count 3.71 M/mcL (4.19-5.50); Red Cell Distribution Width 13.2 % (11.5-14.5); Segmented Neutrophils % 60.5 %
[2018-01-05 22:03] LABS: Alanine Aminotransferase 33 Units/L (7-52); Albumin 3.7 g/dL (3.5-5.7); Albumin/Globulin Ratio 1.2 (1.1-2.2); Alkaline Phosphatase 88 Units/L (34-104); Aspartate Amino Transferase 30 Units/L (13-39); BUN/Creatinine Ratio 25 (6-26); Bilirubin,Total 0.3 mg/dL (0.3-1.0); Blood Urea Nitrogen 18 mg/dL (8-23); Calcium 9.6 mg/dL (8.6-10.3); Carbon Dioxide 25 mEq/L (23-29); Chloride 104 mEq/L (98-107); Globulin 3.2 g/dL (2.4-3.5); Glucose 191 mg/dL (70-105); Osmolality,Calculated 293 (280-300); Potassium 4.4 mEq/L (3.5-5.1); Sodium 138 mEq/L (136-145); Total Protein 6.9 g/dL (6.4-8.9); eGFR For African Americans > 60 (> 60); eGFR For Non-African Americans > 60 (> 60)
[2018-01-05 22:08] LABS: Troponin I 0.07 ng/mL (< 0.04)
[2018-01-05 22:48] LABS: Bilirubin,Urine Negative (Negative); Blood,Urine Negative (Negative); Color,Urine Yellow (Yellow); Glucose,Urine (UA) Normal (Normal); Ketones,Urine Negative (Negative); Leukocyte Esterase,Urine Moderate (Negative); Nitrite,Urine Negative (Negative); Protein,Urine Negative (Neg-Trace); Specific Gravity,Urine 1.016 (1.010-1.025); Urobilinogen,Urine Normal (Normal)
[2018-01-05 22:52] LABS: Bacteria,Urine Many per hpf (None-Few); Hyaline Casts,Urine None Seen per lpf (None-Few); Squamous Epithelial Cell,Urine Few per lpf (None-Few)
[2018-01-05 22:59] LABS: Clarity,Urine Clear (Clear)
[2018-01-05 23:09] LABS: RBC,Urine 0-3 per hpf (0-3)
--- NOTE | 2018-01-05 23:40 | Emergency Department Note ---
Disposition Clinical Impression: Frequent falls UTI (urinary tract infection) Qualifiers: Urinary tract infection type: site unspecified Hematuria presence: without hematuria Qualified Code(s): N39.0 - Urinary tract infection, site not specified Disposition: Admitted As Inpatient Condition: Good [facility]: [facility] [Primary Care Provider] - Forms: ED Satisfaction Letter General Adult HPI - General Chief complaint: ED Fall Stated complaint: Fall Time Seen by Provider: 01/05/18 21:17 Source: EMS Limitations: language barrier, altered mental status Nursing Notes Reviewed: Yes Vital Signs Reviewed: Yes - History of Present Illness HPI Narrative: Patient presents today from long-term for evaluation of multiple falls. Patient is followed twice today. He has recently had a stroke as well as concern for heart problems. The patient has had 2 unwitnessed falls while at the long-term. Family is concerned that there is something else going on. Patient complaining of right leg pain. No obvious deformities. Unable to significantly evaluate secondary to decreased ability to communicate. Patient does wince and pull his leg up to palpation on the right side. Pain Scale: 8 - Related Data Home Medications Medication Instructions Recorded Confirmed Allopurinol [Zyloprim 300 MG] 300 mg GTUBE DAILY 01/20/17 12/24/17 Aspirin 81 mg GTUBE DAILY 01/20/17 12/24/17 Gabapentin [Neurontin] 300 mg GTUBE HS 01/20/17 12/24/17 Lisinopril [Zestril] 20 mg GTUBE DAILY 01/20/17 12/24/17 Multivitamin [Multi-Day Vitamins] 1 tab GTUBE DAILY 01/20/17 12/24/17 Simvastatin [Zocor] 20 mg GTUBE QPM 01/20/17 12/24/17 Acetaminophen [Tylenol] 650 mg GTUBE TID PRN 08/06/17 12/24/17 Carvedilol [Coreg] 12.5 mg GTUBE DAILY 08/06/17 12/24/17 Insulin Glargine,Hum.rec.anlog 4 unit SQ HS 08/06/17 12/24/17 [Lantus Solostar] Isosorbide MONOnitrate (24 HR) 30 mg PO DAILY 08/06/17 12/24/17 [Imdur] Melatonin 6 mg GTUBE HS PRN 08/06/17 12/24/17 Mirtazapine [Remeron] 15 mg PO HS 08/06/17 12/24/17 Atropine 1% Opth Drops 2 drop SL Q2H 12/24/17 12/24/17 Previous Rx's Medication Instructions Recorded Clopidogrel [Plavix] 75 mg PO DAILY #30 tablet 01/23/17 LevETIRAcetam [Keppra] 500 mg PO BID #60 tablet 12/28/17 Allergies Allergy/AdvReac Type Severity Reaction Status Date / Time No Known Allergies Allergy Verified 12/24/17 15:16 Review of Systems: Frequent falls and right hip pain. Patient is unable to communicate otherwise. Limitations: ROS unobtainable due to patients medical condition Past Medical History - Past Medical History Medical history: Reports: atrial fibrillation, coronary artery disease, CVA, diabetes, GERD, hypertension, myocardial infarction, other Surgical history: Reports: cataract, orthopedic, other, angioplasty/stent Psychiatric history: Reports: depression - Social History Smoking Status: Former smoker Smokeless Tobacco Status: No Alcohol use: Reports: none Drug use: Reports: none Physical Exam General: Mild distress secondary to right hip pain Head: Normocephalic Atraumatic Eyes: PERRL, EOMI ENT: Airway patent, no stridor Neck: supple, no meningismus Chest: Lungs clear to auscultation bilateral Cardiac: Regular rate and rhythm, no murmurs, rubs or gallops Abdomen: soft, nontender, nondistended; no guarding, rebound, or tenderness to percussion Musculoskeletal: Tenderness palpation and manipulation of the right leg. Skin: No rash, normal skin tone Neuro: Patient has had recent stroke. He is unable to communicate very well. He describes pain in the right leg as he brings us up to his chest and moves in the bed. The patient has right-sided deficits from his previous stroke. No specific deformity - General Limitations: language barrier, altered mental status General appearance: alert Course Course Narrative: The patient has mild ptosis and concern for urinary tract infection. Patient has elevated troponin likely secondary to continued elevation from previous [place]. The patient has had multiple falls today. Complaining of right hip pain. X- rays and CT negative for acute pathology. At this time due to the patient's significant comorbidities and recent continued falls as well as urinary tract infections and blood of her modalities. Patient will be admitted for hospitalization. - Consultations Consultation #1: Discussed the hospitalist. Patient accepted for admission. Vital Signs Temperature 98.2 F 01/05/18 21:05 Pulse Rate 65 01/05/18 21:05 Respiratory Rate 14 01/05/18 21:05 Blood Pressure 192/102 01/05/18 21:05 O2 Sat by Pulse Oximetry 99 01/05/18 21:05 Temperature 98.2 F 01/05/18 21:05 Pulse Rate 65 01/05/18 21:05 Respiratory Rate 14 01/05/18 21:05 Blood Pressure 192/102 01/05/18 21:05 O2 Sat by Pulse Oximetry 99 01/05/18 21:05 Oxygen Delivery Oxygen Delivery Room Air Medical Decision Making - Medical Records Medical records reviewed: Yes I reviewed the patient's medical records. - Lab Data Lab results reviewed: Yes I reviewed the patient's lab results. Result diagrams: 01/05/18 21:28 01/05/18 21:28 Lab Results 01/05/18 01/05/18 01/05/18 Range/Units 21:28 21:28 22:38 WBC 11.3 H (4.3-11.1) K/mcL RBC 3.71 L (4.19-5.50) M/mcL Hgb 12.0 L (12.9-16.9) g/dL Hct 35.0 L (37.5-50.1) % MCV 94.3 (83.0-100.0) fL MCH 32.3 (28.0-33.3) pg MCHC 34.3 (31.6-35.5) g/dL RDW 13.2 (11.5-14.5) % Plt Count 245 (140-400) K/mcL MPV 10.1 (9.4-12.4) fL Immature Gran % 0.4 (0-4) % Seg Neutrophils % 60.5 % Lymphocytes % 23.0 % Monocytes % 9.3 % Eosinophils % 6.1 % Basophils % 0.7 % Neutrophils # 6.8 (1.6-8.9) K/mcL Lymphocytes # 2.6 (0.6-4.6) K/mcL Monocytes # 1.1 (0.0-1.3) K/mcL Eosinophils # 0.7 H (0.0-0.6) K/mcL Basophils # 0.1 (0.0-0.2) K/mcL Sodium 138 (136-145) mEq/L Potassium 4.4 (3.5-5.1) mEq/L Chloride 104 (98-107) mEq/L Carbon Dioxide 25 (23-29) mEq/L BUN 18 (8-23) mg/dL Creatinine 0.72 (0.70-1.30) mg/dL Est GFR ( Amer) > 60 (> 60) Est GFR (Non-Af Amer) > 60 (> 60) BUN/Creatinine Ratio 25 (6-26) Glucose 191 H (70-105) mg/dL Calculated Osmolality 293 (280-300) Calcium 9.6 (8.6-10.3) mg/dL Total Bilirubin 0.3 (0.3-1.0) mg/dL AST 30 (13-39) Units/L ALT 33 (7-52) Units/L Alkaline Phosphatase 88 (34-104) Units/L Troponin I 0.07 H* (< 0.04) ng/mL Serum Total Protein 6.9 (6.4-8.9) g/dL Albumin 3.7 (3.5-5.7) g/dL Globulin 3.2 (2.4-3.5) g/dL Albumin/Globulin Ratio 1.2 (1.1-2.2) Urine Color Yellow (Yellow) Urine Clarity Clear (Clear) Urine pH 7.0 (5.0-8.0) pH Units Ur Specific [place] 1.016 (1.010-1.025) Urine Protein Negative (Neg-Trace) mg/dL Urine Glucose (UA) Normal (Normal) mg/dL Urine Ketones Negative (Negative) mg/dL Urine Blood Negative (Negative) Urine Nitrite Negative (Negative) Urine Bilirubin Negative (Negative) Urine Urobilinogen Normal (Normal) mg/dL Ur Leukocyte Esterase Moderate H (Negative) Urine Microscopic RBC 0-3 (0-3) per hpf Urine Microscopic WBC 5-15 H (0-3) per hpf Ur Squamous Epith Cells Few (None-Few) per lpf Urine Bacteria Many H (None-Few) per hpf Hyaline Casts None Seen (None-Few) per lpf Ur Culture Indicated? YES A (NO) - Radiology Data Radiology results reviewed: Yes I reviewed the patient's radiology results. - EKG Data EKG #1 EKG attestation: Yes I reviewed and interpreted this EKG. EKG results narrative: EKG shows sinus rhythm with ventricular rate [id number]. QRS 10. QTC 448. Patient has no significant ST elevations or depressions. Patient has nonspecific T-wave abnormalities in the lateral leads all present on previous EKG of 12/24/2017.
[2018-01-06] MEDS ORDERED: Aspirin 81 MG TAB.CHEW PO ONE (00:04)
[2018-01-06] MEDS ORDERED: cefTRIAXone 1,000 MG in Water for inj. (sterile) 20 ML 10 ML IVP ONE (00:04)
[2018-01-06] MEDS ORDERED: *HR* Labetalol 20 MG/4 ML SYRINGE IVP STA (00:11)
--- NOTE | 2018-01-06 01:34 | Internal Med History&Physical ---
Date of Encounter: 01/06/18 Time of Encounter: 01:02 Internal Medicine - H&P: HPI History of present illness: Mr. Drew is a 87 year old male with history of multiple CVA with right-sided weakness with dysarthria on aspirin and Plavix but not the candidate for other anticoagulation, seizure on Keppra, diabetes mellitus A1c 8.4, A. fib, CHF but compensated not on diuretic was brought to ER by EMS from senior care with the concern of multiple falls recently and had to fall today while on wheelchair. Patient has unwitnessed falls at senior care. Family was concerned that there is something else going on therefore wanted to get further evaluation. In ER abnormal urine analysis suspicious for UTI with slight high blood pressure. Multiple imaging including CT head and cervical spine lumbar spine pelvis and thoracic spine ordered with no acute finding. Slight elevated troponin but better compared to last. In ER aspirin, labetalol and Rocephin was given. Urine culture was sent. Mostly history of present from family at bedside. Patient denies fever chills vomiting headache chest pain short of breath abdominal pain diarrhea. Patient had G-tube for 1 ER and family is concerned about getting discolored and want opinion from surgeon whether it needs to get changed. Past Med Surg Social Fam HX - Past Medical History Medical history: atrial fibrillation, coronary artery disease, CVA, diabetes, GERD, hypertension, myocardial infarction, other Psychiatric history: depression - Past Surgical History Surgical History: cataract, orthopedic, other, angioplasty/stent Additional surgical history: Neck Fusion - Social History Smoking Status: Former smoker Smokeless Tobacco Status: No Alcohol use: none Drug use: none - Family History Mother Living Status: Hx Family Cardiac Disorders: No Hx Family Respiratory Disorders: No Hx Family Cancer: Yes Hx Family GI Disorders: No Hx Family Endocrine Disorder: No Hx Family Neuromuscular Disorders: No Hx Family Neurologic Disorders: No Hx Family HEENT Disorders: No Hx Family Autoimmune Disorders: No Internal Medicine - H&P: Meds Allopurinol [Zyloprim 300 MG] 300 mg GTUBE DAILY 01/20/17 [History] Aspirin 81 mg GTUBE DAILY 01/20/17 [History] Gabapentin [Neurontin] 300 mg GTUBE HS 01/20/17 [History] Lisinopril [Zestril] 20 mg GTUBE DAILY 01/20/17 [History] Multivitamin [Multi-Day Vitamins] 1 tab GTUBE DAILY 01/20/17 [History] Simvastatin [Zocor] 20 mg GTUBE QPM 01/20/17 [History] Clopidogrel [Plavix] 75 mg PO DAILY #30 tablet 01/23/17 [Rx] Acetaminophen [Tylenol] 650 mg GTUBE TID PRN 08/06/17 [History] Carvedilol [Coreg] 12.5 mg GTUBE DAILY 08/06/17 [History] Insulin Glargine,Hum.rec.anlog [Lantus Solostar] 4 unit SQ HS 08/06/17 [History] Isosorbide MONOnitrate (24 HR) [Imdur] 30 mg PO DAILY 08/06/17 [History] Melatonin 6 mg GTUBE HS PRN 08/06/17 [History] Mirtazapine [Remeron] 15 mg PO HS 08/06/17 [History] Atropine 1% Opth Drops 2 drop SL Q2H 12/24/17 [History] LevETIRAcetam [Keppra] 500 mg PO BID #60 tablet 12/28/17 [Rx] 3 Allergy/AdvReac Type Severity Reaction Status Date / Time No Known Allergies Allergy Verified 12/24/17 15:16 All Systems PM: A 10-system review of systems was performed and is negative for pertinent findings except as documented above in the HPI. - Constitutional Vitals: Temp Pulse Resp BP Pulse Ox 98.2 F 65 14 192/102 99 01/05/18 21:05 01/05/18 21:05 01/05/18 21:05 01/05/18 21:05 01/05/18 21:05 Exam: General appearance: No acute distress, alert awake oriented to person and possibly place. Family at bedside Head exam: Atraumatic Eye exam: EOMI, PERRLA ENT exam: Moist oral mucosa Neck nontender, supple Respiratory exam: Clear to auscultation bilaterally Cardiovascular exam: Regular rate and rhythm, no systolic murmur Abdominal exam: Soft, nontender, nondistended, positive bowel sounds, G-tube in place-brownish color Extremities exam: No calf tenderness, no pedal edema Present: Skin-no rash, warm, dry, intact Neurological exam: Right facial droop, right upper extremity 1 x 5 left upper extremity 3 x 5 bilateral lower extremity 2 x 5. Dysarthria. Bed and wheelchair bound. Internal Med - H&P Results - Labs CBC & Chem 7: 01/05/18 21:28 01/05/18 21:28 - Assessment and plan (1) UTI (urinary tract infection) Current Visit: Yes Status: Acute Assessment and plan: Mild leukocytosis with abnormal urine analysis. Urine culture sent by ER. Rocephin is started will continue Rocephin. Qualifiers: Urinary tract infection type: site unspecified Hematuria presence: without hematuria Qualified Code(s): N39.0 - Urinary tract infection, site not specified Code(s): N39.0 - Urinary tract infection, site not specified SNOMED Code(s): 82355472 (2) Frequent falls Current Visit: Yes Status: Acute Assessment and plan: High risk for fall due to underlying CVA with residual weakness. Patient is wheelchair bound. Acute infection could be contributing worsening of fall. PTOT and geriatric social worker will be consulted. (3) Cardiac enzymes elevated Current Visit: No Status: Acute Assessment and plan: No active chest pain. Trending down troponin compared to last. No acute finding in EKG. Will keep patient in telemetry and close monitoring. Will consult machine operator hop picker if needed (4) Cardiomyopathy Current Visit: No Status: Acute Assessment and plan: Ischemic. Is stable. Continue home medicine Qualifiers: Cardiomyopathy type: unspecified Qualified Code(s): I42.9 - Cardiomyopathy , unspecified (5) Seizure Current Visit: No Status: Acute Assessment and plan: Stable. No active seizure. Continue home medicine (6) Systolic CHF Current Visit: No Status: Acute Assessment and plan: Compensated. Patient does not take diuretic. A strict I&O's. Continue home medicine Qualifiers: Heart failure chronicity: chronic Qualified Code(s): I50.22 - Chronic systolic (congestive) heart failure (7) Atrial fibrillation Current Visit: No Status: Chronic Assessment and plan: Rate is controlled. Continue home medicine. Not the candidate for anticoagulation as discussed in the past Qualifiers: Atrial fibrillation type: chronic Qualified Code(s): I48.2 - Chronic atrial fibrillation (8) History of CVA (cerebrovascular accident) Current Visit: No Status: Chronic Assessment and plan: Ms. residual right-sided weakness, dysarthria. Patient has PEG tube for last 1 year and needs to get evaluated by surgeon whether it needs to get replaced. Patient use pureed diet but will consult speech therapist's. PEG tube use intermittently for supplementation (9) Hypertension Current Visit: No Status: Chronic Assessment and plan: High blood pressure. Continue home medicine. Hydralazine when necessary. Close monitoring Qualifiers: Hypertension type: essential hypertension Qualified Code(s): I10 - Essential (primary) hypertension (10) DVT prophylaxis Current Visit: No Status: Acute Assessment and plan: SCDs - Time Spent With Patient Total time spent is greater than 50% in coordination of care (as documented) at patient's floor/unit and/or counseling patient:
[2018-01-06] MEDS ORDERED: Naloxone 0.4 MG/ML INJ IVP PRN (01:56)
[2018-01-06] MEDS ORDERED: Melatonin 3 MG TABLET GTUBE PRN (01:59)
[2018-01-06] MEDS: Atropine 1% Opth Drops 100 DROP/5 ML BOTTLE SL SCH ×2 (03:06→04:50)
[2018-01-06 03:44] LABS: Basophils # 0.1 K/mcL (0.0-0.2); Basophils % 0.6 %; Eosinophils # 0.7 K/mcL (0.0-0.6); Eosinophils % 6.1 %; Hematocrit 32.6 % (37.5-50.1); Hemoglobin 11.2 g/dL (12.9-16.9); Immature Granulocytes % 0.5 % (0-4); Lymphocytes # 2.4 K/mcL (0.6-4.6); Lymphocytes % 22.1 %; Mean Corpuscular HGB Conc 34.4 g/dL (31.6-35.5); Mean Corpuscular Hemoglobin 32.1 pg (28.0-33.3); Mean Corpuscular Volume 93.4 fL (83.0-100.0); Mean Platelet Volume 11.2 fL (9.4-12.4); Monocytes # 1.2 K/mcL (0.0-1.3); Monocytes % 10.4 %; Neutrophils # 6.6 K/mcL (1.6-8.9); Platelet Count 199 K/mcL (140-400); Red Blood Count 3.49 M/mcL (4.19-5.50); Red Cell Distribution Width 13.2 % (11.5-14.5); Segmented Neutrophils % 60.3 %
[2018-01-06 03:52] LABS: Prothrombin Time 11.8 Seconds (9.4-12.1)
[2018-01-06 03:55] LABS: Activated Partial Thrombo Time 28.6 Seconds (26.0-36.0)
[2018-01-06 04:05] LABS: BUN/Creatinine Ratio 23 (6-26); Blood Urea Nitrogen 15 mg/dL (8-23); Calcium 9.4 mg/dL (8.6-10.3); Carbon Dioxide 23 mEq/L (23-29); Chloride 105 mEq/L (98-107); Glucose 163 mg/dL (70-105); Osmolality,Calculated 290 (280-300); Potassium 3.9 mEq/L (3.5-5.1); Sodium 138 mEq/L (136-145); eGFR For African Americans > 60 (> 60); eGFR For Non-African Americans > 60 (> 60)
--- NOTE | 2018-01-06 04:34 | Event Note ---
Date of Encounter: 01/06/18 Time of Encounter: 04:32 Second troponin trending up 0.1 initial 0.07. Initial EKG with no acute changes except inverted T-wave in the anterior lateral lead. Patient denies chest pain. Repeat EKG ordered. I called his but failed attempt therefore called some and discuss about further apical management including adding anticoagulation heparin versus Lovenox but family declined as they think it is more risk based on previous outcome and also has been told not a candidate for anticoagulation. Will continue aspirin and Plavix, statin and beta joseph. Will also consult cardiology.
[2018-01-06] MEDS ORDERED: Atropine 1% Opth Drops 100 DROP/5 ML BOTTLE SL PRN (04:48)
[2018-01-06] MEDS ORDERED: Isosorbide MONOnitrate (24 HR) 30 MG TAB.ER.24H PO SCH (09:00)
[2018-01-06] MEDS: levETIRAcetam 500 MG/5 ML UDC GTUBE SCH ×2 (09:00→20:41)
--- NOTE | 2018-01-06 11:49 | Internal Med Progress Note ---
Date of Encounter: 01/07/18 Time of Encounter: 11:49 - Assessment and plan (1) Cardiac enzymes elevated Current Visit: No Status: Acute Assessment and plan: No active chest pain. Trending down troponin .07,.10,.09 cardilogy consulted- suspect r/t fall infection Increased Imdur. (2) Hypertension Current Visit: No Status: Chronic Assessment and plan: High blood pressure on presentation. Stable at this time will continue home meds Qualifiers: Hypertension type: essential hypertension Qualified Code(s): I10 - Essential (primary) hypertension (3) DVT prophylaxis Current Visit: No Status: Acute Assessment and plan: SCDs (4) Cardiomyopathy Current Visit: No Status: Acute Assessment and plan: Ischemic. Is stable. continue BB FRANSISCO monitor I/O daily weights Qualifiers: Cardiomyopathy type: unspecified Qualified Code(s): I42.9 - Cardiomyopathy , unspecified (5) Atrial fibrillation Current Visit: No Status: Chronic Assessment and plan: Rate is controlled. Not on any anticoagulation due to frequent falls Continue with beta joseph Qualifiers: Atrial fibrillation type: chronic Qualified Code(s): I48.2 - Chronic atrial fibrillation (6) Systolic CHF Current Visit: No Status: Acute Assessment and plan: Compensated. echo 12/25/2017 Impressions: LVEF 45%. LV systolic dysfunction appears global although not all LV wall segments are well visualized. Mild left ventricular diastolic dysfunction. Increased LV wall thickness - measurements not well obtained. Normal right ventricular structure and function. Mild aortic stenosis. No pulmonary hypertension. Suboptimal contrast injection images to detect PFO Patient does not take diuretic. A strict I&O's. Continue home medicine Qualifiers: Heart failure chronicity: chronic Qualified Code(s): I50.22 - Chronic systolic (congestive) heart failure (7) UTI (urinary tract infection) Current Visit: Yes Status: Acute Assessment and plan: Mild leukocytosis with abnormal urine analysis. Culture growing ecoli-awaiting sensitivity Cont rocephin Qualifiers: Urinary tract infection type: site unspecified Hematuria presence: without hematuria Qualified Code(s): N39.0 - Urinary tract infection, site not specified Code(s): N39.0 - Urinary tract infection, site not specified SNOMED Code(s): 73125861 (8) History of CVA (cerebrovascular accident) Current Visit: No Status: Chronic Assessment and plan: Ms. residual right-sided weakness, dysarthria. Patient has PEG tube for last 1 year and needs to get evaluated by surgeon whether it needs to get replaced. Patient use pureed diet but will consult speech therapist's. He did pass bedside swallow PEG tube use intermittently for supplementation (9) Seizure Current Visit: No Status: Acute Assessment and plan: Stable. No active seizure. Continue home medicine Seizure precautions (10) Frequent falls Current Visit: Yes Status: Acute Assessment and plan: High risk for fall due to underlying CVA with residual weakness. Patient is wheelchair bound. Acute infection could be contributing worsening of fall. PT/ OT and pediatric social worker consulted. - Time Spent With Patient Total time spent is greater than 50% in coordination of care (as documented) at patient's floor/unit and/or counseling patient: - Subjective Interval history: Patient was seen and examined at bedside. is at bedside, information obtained from . Patient is sleeping arouses to verbal stimuli Oriented to name only. - Constitutional Vitals: Temp Pulse Resp BP Pulse Ox 97.9 F 58 16 128/64 97 01/06/18 11:27 01/06/18 11:27 01/06/18 11:27 01/06/18 11:27 01/06/18 11:27 General appearance: Present: A&O X 1 - Head Head exam: Present: atraumatic, normocephalic - Eye Eye exam: Present: PERRL, conjuntiva pink, sclera anicteric Pupils: Present: PERRL - Neck Neck exam general surgery: Present: supple, trachea midline. Absent: lymphadenopathy - Respiratory Respiratory exam: Present: CTAB. Absent: accessory muscle use, rales, rhonchi, wheezes - Cardiovascular Cardiovascular exam: Present: RRR, +S1, +S2. Absent: diastolic murmur, gallop, rubs, systolic murmur - GI/Abdominal GI/Abdominal exam: Present: normal bowel sounds, soft, no peritoneal signs. Absent: distended, tenderness - Extremities Exam Extremities exam: Present: warm, radial pulses palpable and symmetrical. Absent : calf tenderness, cyanotic, pedal edema - Neurological Exam Neurological exam: Present: CN II-XII intact. Absent: pronater drift, facial droop, speech deficit - Skin Skin exam: Present: dry, intact Internal Medicine: Result - Labs CBC & Chem 7: 01/07/18 08:22 01/07/18 08:22 Labs: Short CBC 01/06/18 Range/Units 02:38 WBC 11.0 (4.3-11.1) K/mcL Hgb 11.2 L (12.9-16.9) g/dL Hct 32.6 L (37.5-50.1) % Plt Count 199 (140-400) K/mcL Neutrophils # 6.6 (1.6-8.9) K/mcL BMP 01/06/18 02:38 Sodium 138 Potassium 3.9 Chloride 105 Carbon Dioxide 23 BUN 15 Creatinine 0.64 L Glucose 163 H Calcium 9.4 Cardiac Enzymes 01/06/18 01/06/18 Range/Units 02:38 08:27 Troponin I 0.10 H* 0.09 H* (< 0.04) ng/mL - ABG Interpretation ABG results: PT/INR, D-dimer PT 11.8 Seconds (9.4-12.1) 01/06/18 02:38 Consult Discharge Plan - Plan [facility] [Primary Care Provider[facility] -
--- NOTE | 2018-01-06 14:18 | Cardiology Consult Note ---
<Zoila Jeffers - Last Filed: 01/06/18 14:27> Date of Encounter: 01/06/18 Time of Encounter: 13:00 Assessment and Plan (1) Frequent falls Current Visit: Yes Status: Acute Per cardiology: -Reported falls at senior living. -Management per primary service. (2) UTI (urinary tract infection) Current Visit: Yes Status: Acute Per cardiology: -UTI noted. -On ATB. -Management per primary service. Qualifiers: Urinary tract infection type: site unspecified Hematuria presence: without hematuria Qualified Code(s): N39.0 - Urinary tract infection, site not specified (3) Elevated troponin Current Visit: No Status: Acute Per cardiology: -Troponins 0.07, 0.1, 0.09 in the setting of UTI, falls. -No complaints of chest pain, no grimacing noted. -TTE 12/2017 LVEF 45% (improved from previous). -No acute ischemic ECG changes noted, T wave inversions noted in lateral leads, similar to previous. -ON asa, plavix, Statin, BB. -C 01/23/17 with 20% proximal LAD, 90% distal LAD, 95% proximal circumflex calcified with balloon angioplasty and residual stenosis of 90% noted, 95% distal OM, 70% instent restenosis with balloon angioplasty. Follows with who stated per last office note, patient would be high risk for PCI of circumflex due to heavy calcification. -DO not suspect NSTEMI, suspect demand ischemia related to above. No cardiac rehab consult warranted. -Will increase imdur to 60mg with continue T wave inversiosn. (4) Ischemic cardiomyopathy Current Visit: No Status: Acute Per cardiology: -Known ICM. -TTE 2016 with LVEF 20-25%. -TTE 12/2017 with LVEF 45%. -ON BB, julia inhibtior. -Mild pedal edema noted. -Strict i/os, fluid restriction, daily weights. Discussion w patient/family: The assessment and plan as outlined above was discussed with the patient and/or family members who expressed understanding and agreement. All questions were answered. Thank you for involving us in the care of your patient. Please call with any questions. Discussed and reviewed with , History of Present Illness Consult date: 01/06/18 Requesting physician: Johnna Giraldo Consult reason: elevated trop Chief complaint: fall History of present illness: Mr. Drew is a 87 year old male with a relevant past medical history of CAD s/p PCI, ICM, CVA, DM, HTN, HLD, expressive aphasia who presented to [facility] after fall x2 at senior living. Patient's is at bedside and most of history was obtained from . states patient has not grimaced or pulled at chest. No complaints of chest pain that she is aware of. No shortness of breath. Past Med Surg Social Fam HX - Past Medical History Attestation: Yes The following information was validated with the patient. Source: patient, old records reviewed, obtained from family Medical history: atrial fibrillation, cardiomyopathy, coronary artery disease, CVA, diabetes, GERD, hypertension, myocardial infarction, other Psychiatric history: depression - Past Surgical History Surgical History: cataract, orthopedic, other, angioplasty/stent Additional surgical history: Neck Fusion - Social History Smoking Status: Former smoker Smokeless Tobacco Status: No Alcohol use: none Drug use: none - Family History Mother Living Status: Hx Family Cardiac Disorders: No Hx Family Respiratory Disorders: No Hx Family Cancer: Yes Hx Family GI Disorders: No Hx Family Endocrine Disorder: No Hx Family Neuromuscular Disorders: No Hx Family Neurologic Disorders: No Hx Family HEENT Disorders: No Hx Family Autoimmune Disorders: No Medications and Allergies Allopurinol [Zyloprim 300 MG] 300 mg GTUBE DAILY 01/20/17 [History] Aspirin 81 mg GTUBE DAILY 01/20/17 [History] Gabapentin [Neurontin] 300 mg GTUBE HS 01/20/17 [History] Lisinopril [Zestril] 20 mg GTUBE DAILY 01/20/17 [History] Multivitamin [Multi-Day Vitamins] 1 tab GTUBE DAILY 01/20/17 [History] Simvastatin [Zocor] 20 mg GTUBE QPM 01/20/17 [History] Clopidogrel [Plavix] 75 mg PO DAILY #30 tablet 01/23/17 [Rx] Acetaminophen [Tylenol] 650 mg GTUBE TID PRN 08/06/17 [History] Carvedilol [Coreg] 12.5 mg GTUBE DAILY 08/06/17 [History] Insulin Glargine,Hum.rec.anlog [Lantus Solostar] 4 unit SQ HS 08/06/17 [History] Isosorbide MONOnitrate (24 HR) [Imdur] 30 mg PO DAILY 08/06/17 [History] Melatonin 6 mg GTUBE HS PRN 08/06/17 [History] Mirtazapine [Remeron] 15 mg PO HS 08/06/17 [History] Atropine 1% Opth Drops 2 drop SL Q2H 12/24/17 [History] LevETIRAcetam [Keppra] 500 mg PO BID #60 tablet 12/28/17 [Rx] 3 Allergy/AdvReac Type Severity Reaction Status Date / Time No Known Allergies Allergy Verified 12/24/17 15:16 All Systems Review: The remainder of the systems were reviewed and are negative - Constitutional Constitutional: frequent falls - Cardiovascular Cardiovascular: as per HPI Physical Examination Vital Signs, Last 4 Hours Temp Pulse Resp BP Pulse Ox 01/06/18 11:27 97.9 F 58 16 128/64 97 General: Other (Able to say "yes." Otherwise does not speech. ) HEENT: Atraumatic Neck: No JVD, Normal carotid pulses Cardiac: Reg Rate and Rhythm, Normal S1 and S2, No Murmur Lungs: Normal Breath Sounds, No Wheeze, Rales, Rhonchi Neuro: Other (Awake. Follows commands. ) Abdomen: Soft, Non-Tender Skin: No rashes noted on visualized skin Musculoskeletal: No Chest Wall Tenderness Extremities: No Clubbing, No Cyanosis, Normal Pulses, Other (Mild bilateral pedal edema. ) Results 01/06/18 02:38 01/06/18 02:38 Lab Results Impressions Cervical Spine CT 01/05/18 21:18 IMPRESSION: Remote insult in the left hemisphere with encephalomalacia and surrounding gliosis. Multifocal small-vessel ischemic change No acute hemorrhage No acute cervical spine fracture Multilevel degenerative change throughout the cervical spine D/ / Basil Cadnelaria / Basil Candelaria Interpreting Provider: Basil Candelaria Chest X-Ray 01/05/18 21:18 IMPRESSION: Technically limited study. No definite acute finding. D/ / Basil Kim MD / Basil Kim MD Interpreting Provider: Basil Kim MD Head CT 01/05/18 21:18 IMPRESSION: Remote insult in the left hemisphere with encephalomalacia and surrounding gliosis. Multifocal small-vessel ischemic change No acute hemorrhage No acute cervical spine fracture Multilevel degenerative change throughout the cervical spine D/ / Basil Candelaria / Basil Candelaria Interpreting Provider: Basil Candelaria Lumbar Spine CT 01/05/18 21:18 IMPRESSION: No acute fracture in the thoracic spine No acute fracture in the lumbar spine No acute fracture in the pelvis Extensive degenerative changes throughout the thoracolumbar spine and pelvis. D/ / Basil Candelaria / Basil Candelaria Interpreting Provider: Basil Candelaria Pelvis CT 01/05/18 21:18 IMPRESSION: No acute fracture in the thoracic spine No acute fracture in the lumbar spine No acute fracture in the pelvis Extensive degenerative changes throughout the thoracolumbar spine and pelvis. D/ / Basil Candelaria / Basil Candelaria Interpreting Provider: Basil Candelaria Thoracic Spine CT 01/05/18 21:18 IMPRESSION: No acute fracture in the thoracic spine No acute fracture in the lumbar spine No acute fracture in the pelvis Extensive degenerative changes throughout the thoracolumbar spine and pelvis. D/ / Basil Candelaria / Basil Candelaria Interpreting Provider: Basil Candelaria Active Medications Acetaminophen (Tylenol Susp) 650 mg GTUBE TID PRN PRN Reason: Pain Allopurinol (Zyloprim) 300 mg GTUBE DAILY [facility] Stop: 07/08/18 09:01 Aspirin (Aspirin) 81 mg GTUBE DAILY [facility] Stop: 07/08/18 09:01 Atropine Sulfate (Atropine 1% Opth Drops) 2 drop SL Q2H PRN PRN Reason: FOR SECREATIONS Stop: 07/08/18 02:01 Carvedilol (Coreg) 12.5 mg GTUBE DAILY [facility] PRN Reason: Protocol Stop: 07/08/18 09:01 Clopidogrel Bisulfate (Plavix) 75 mg PO DAILY [facility] Stop: 07/08/18 09:01 Gabapentin (Neurontin) 300 mg GTUBE HS [facility] Stop: 07/08/18 21:01 Hydralazine HCl (Hydralazine) 10 mg IVP Q6HR PRN PRN Reason: Hypertension Stop: 07/08/18 02:02 Ceftriaxone Sodium 1,000 mg/ (Sterile Water) 10 mls @ 600 mls/hr IVP DAILY@ 1800 NEETU Stop: 07/08/18 18:01 Insulin Detemir (Levemir) 4 unit SQ HS [facility] Stop: 07/08/18 21:01 Isosorbide Mononitrate (Imdur) 30 mg PO DAILY NEETU Stop: 07/08/18 09:01 Levetiracetam (Keppra Oral Soln) 500 mg GTUBE BID [facility] Stop: 07/08/18 09:01 Lisinopril (Zestril) 20 mg GTUBE DAILY NEETU PRN Reason: Protocol Stop: 07/08/18 09:01 Melatonin (Melatonin) 6 mg GTUBE HS PRN PRN Reason: Sleep Mirtazapine (Remeron) 15 mg GTUBE HS [facility] Stop: 07/08/18 21:01 Multivitamins/Calcium (Thera M Plus) 1 tab GTUBE DAILY [facility] Stop: 07/08/18 09:01 Naloxone HCl (Narcan) 0.4 mg IVP Q2MIN PRN PRN Reason: SEE COMMENTS Stop: 07/08/18 01:57 Simvastatin (Zocor) 20 mg GTUBE QPM NEETU PRN Reason: Protocol Stop: 07/08/18 18:01 Laboratory Tests 01/05/18 01/06/18 01/06/18 21:28 02:38 02:38 Hgb 11.2 L Creatinine Troponin I 0.07 H* 0.10 H* 01/06/18 01/06/18 02:38 08:27 Hgb Creatinine 0.64 L Troponin I 0.09 H* - Imaging and Cardiology Chest Xray: report reviewed Echo: report reviewed Cardiac cath: report reviewed - EKG Interpretation EKG results cardiology: personally reviewed (ECG with SR, HR 71. T wave inversions noted in lateral leads.), other (Telemetry reviewed with average HR previous 12 hours noted to be 60, SR> PVCs and PACs noted.) Consult Discharge Plan - Plan [facility]errals: [facility] [Primary Care Provider[facility] - <Florin Echevarria - Last Filed: 01/07/18 19:36> Date of Encounter: 01/06/18 Time of Encounter: 16:20 - Attending Attestation I have personally performed a face to face evaluation on this patient. I have reviewed and agree with the care plan. History and Exam by me shows: CC: Falling at ECF Pt is not a reliable historian, hx obtained from at bedside, ECF records. Pt has had downhill course over last five days, is much less active, is not as steady on his feet and has fallen x 2 on the day of admission. Pt has not complained of chest pain, pressure or palpitations. He is less conversant than usual, was making slow progress with communication. No new lower extremity swelling, shortness of breath or increased confusion. He had made significant progress in last two months, but is rapidly declining over last several days before admission. PMH: Reviewed ROS: Reviewed Labs, Xrays reviwed PE: pt seen and examined, agree with physical findings as documented. IMP/PLAN: 1. Mechanical falls: unclear etiology, recommend orthostatic vitals, up with assist, PT/OT eval for possible gait training. Pt was also mildly dehydrated, has responded to fluid replacement. No new nuero deficits, no change from baseline except may be less communicative. 2. UTI: new, on antibiotics, suspect may have contributed to falling, decreased activity. Continue to monitor, ambulate with assist, if does not make significant inmprovement in next 24 hours, consult PT/OT. 3. Elevated troponin: unclear etiology, adynamic, most likely due to demand ischemia, however pt is not a candidate for invasive strategy unless awareness improves or develops an acute ACS with reversible process, have discussed with family in outpatient setting. Goal is care and comfort, would not peruse at this point, will increase Imdur to 60 mg q AM, monitor clincal response. Assessment and Plan Discussion w patient/family: The assessment and plan as outlined above was discussed with the patient and/or family members who expressed understanding and agreement. All questions were answered. Thank you for involving us in the care of your patient. Please call with any questions. History of Present Illness History of present illness: Mr. Drew is a 87 year old male All Systems Review: The remainder of the systems were reviewed and are negative Physical Examination Vital Signs, Last 4 Hours Temp Pulse Resp BP Pulse Ox 01/07/18 19:01 99.1 F 73 16 108/57 96 Results 01/07/18 08:22 01/07/18 08:22 Lab Results 01/07/18 01/07/18 08:22 08:22 WBC 9.1 Hgb 11.5 L Hct 33.5 L Plt Count 216 Sodium 141 Potassium 4.1 Chloride 107 Carbon Dioxide 30 H BUN 12 Creatinine 0.65 L Glucose 121 H Calcium 9.5
[2018-01-06] MEDS: Aspirin 81 MG TAB.CHEW GTUBE SCH (15:28)
[2018-01-06] MEDS: Multivit/Ca/Min/Fe/FA 1 TAB TABLET GTUBE SCH (15:29)
[2018-01-06] MEDS: Lisinopril 20 MG TABLET GTUBE SCH (15:30)
[2018-01-06] MEDS: cefTRIAXone 1,000 MG in Water for inj. (sterile) 20 ML 10 ML IVP SCH (17:33)
[2018-01-06] MEDS: Mirtazapine 15 MG TABLET GTUBE SCH (20:41)
[2018-01-06] MEDS: Insulin DETEMIR 100 UNIT/ML X5UNITS SQ SCH (20:41)
[2018-01-06] MEDS: Gabapentin 300 MG CAPSULE GTUBE SCH (20:41)
[2018-01-06] MEDS ORDERED: NON-FORMULARY MEDICATION 1 EACH EACH (Insulin Glargine,Hum.Rec.Anlog [Lantus Solostar] 4 U SQ SCH (21:00)
[2018-01-07 08:52] LABS: Basophils # 0.1 K/mcL (0.0-0.2); Basophils % 0.6 %; Eosinophils # 0.7 K/mcL (0.0-0.6); Eosinophils % 7.5 %; Hematocrit 33.5 % (37.5-50.1); Hemoglobin 11.5 g/dL (12.9-16.9); Immature Granulocytes % 0.3 % (0-4); Lymphocytes # 2.3 K/mcL (0.6-4.6); Lymphocytes % 24.9 %; Mean Corpuscular HGB Conc 34.3 g/dL (31.6-35.5); Mean Corpuscular Hemoglobin 32.8 pg (28.0-33.3); Mean Corpuscular Volume 95.4 fL (83.0-100.0); Mean Platelet Volume 10.6 fL (9.4-12.4); Monocytes # 0.9 K/mcL (0.0-1.3); Monocytes % 9.4 %; Neutrophils # 5.2 K/mcL (1.6-8.9); Platelet Count 216 K/mcL (140-400); Red Blood Count 3.51 M/mcL (4.19-5.50); Red Cell Distribution Width 13.3 % (11.5-14.5); Segmented Neutrophils % 57.3 %
[2018-01-07 09:10] LABS: BUN/Creatinine Ratio 18 (6-26); Blood Urea Nitrogen 12 mg/dL (8-23); Calcium 9.5 mg/dL (8.6-10.3); Carbon Dioxide 30 mEq/L (23-29); Chloride 107 mEq/L (98-107); Glucose 121 mg/dL (70-105); Osmolality,Calculated 293 (280-300); Potassium 4.1 mEq/L (3.5-5.1); Sodium 141 mEq/L (136-145); eGFR For African Americans > 60 (> 60); eGFR For Non-African Americans > 60 (> 60)
[2018-01-07] MEDS: Lisinopril 20 MG TABLET GTUBE SCH (10:08)
[2018-01-07] MEDS: Aspirin 81 MG TAB.CHEW GTUBE SCH (10:09)
[2018-01-07] MEDS: Isosorbide MONOnitrate (24 HR) 60 MG TAB.ER.24H PO SCH (10:09)
[2018-01-07] MEDS: Multivit/Ca/Min/Fe/FA 1 TAB TABLET GTUBE SCH (10:09)
[2018-01-07] MEDS: levETIRAcetam 500 MG/5 ML UDC GTUBE SCH ×2 (10:19→21:10)
--- NOTE | 2018-01-07 11:30 | Internal Med Progress Note ---
Date of Encounter: 01/07/18 Time of Encounter: 11:27 - Assessment and plan (1) Cardiac enzymes elevated Current Visit: No Status: Acute Assessment and plan: No active chest pain. Trending down troponin .07,.10,.09 cardilogy consulted- suspect r/t fall infection Increased Imdur. Advised to follow up with cardiology as outpatient (2) Hypertension Current Visit: No Status: Chronic Assessment and plan: High blood pressure on presentation. Stable at this time will continue home meds, continue to monitor. Qualifiers: Hypertension type: essential hypertension Qualified Code(s): I10 - Essential (primary) hypertension (3) Cardiomyopathy Current Visit: No Status: Acute Assessment and plan: Ischemic. Does not appear to be fluid overloaded this time continue BB FRANSISCO monitor I/O daily weights Qualifiers: Cardiomyopathy type: unspecified Qualified Code(s): I42.9 - Cardiomyopathy , unspecified (4) Atrial fibrillation Current Visit: No Status: Chronic Assessment and plan: Rate is controlled. Not on any anticoagulation due to frequent falls Continue with beta joseph Continuous cardiac monitoring Qualifiers: Atrial fibrillation type: chronic Qualified Code(s): I48.2 - Chronic atrial fibrillation (5) Systolic CHF Current Visit: No Status: Acute Assessment and plan: Compensated. echo 12/25/2017 Impressions: LVEF 45%. LV systolic dysfunction appears global although not all LV wall segments are well visualized. Mild left ventricular diastolic dysfunction. Increased LV wall thickness - measurements not well obtained. Normal right ventricular structure and function. Mild aortic stenosis. No pulmonary hypertension. Suboptimal contrast injection images to detect PFO Patient does not take diuretic. Continue strict I&O's. And daily weights Continue home medicine Qualifiers: Heart failure chronicity: chronic Qualified Code(s): I50.22 - Chronic systolic (congestive) heart failure (6) UTI (urinary tract infection) Current Visit: Yes Status: Acute Assessment and plan: Mild leukocytosis with abnormal urine analysis. Culture growing ecoli-awaiting sensitivity Cont rocephin Qualifiers: Urinary tract infection type: site unspecified Hematuria presence: without hematuria Qualified Code(s): N39.0 - Urinary tract infection, site not specified Code(s): N39.0 - Urinary tract infection, site not specified SNOMED Code(s): 13051347 (7) History of CVA (cerebrovascular accident) Current Visit: No Status: Chronic Assessment and plan: residual right-sided weakness, dysarthria. Patient has PEG tube for last 1 year-and is patent and flushes easily. The tube itself is discolored however the surrounding skin is intact without any redness or drainage family requested evaluation by surgeon whether it needs to get replaced. Patient use pureed diet but will consult speech therapist's. He did pass bedside swallow PEG tube use intermittently for supplementation (8) Seizure Current Visit: No Status: Acute Assessment and plan: Stable. No active seizure. Continue home medicine Seizure precautions (9) Frequent falls Current Visit: Yes Status: Acute Assessment and plan: High risk for fall due to underlying CVA with residual weakness. Patient is wheelchair bound. Acute infection could be contributing worsening of fall. PT/ OT and protective services social worker consulted. Fall precautions (10) DVT prophylaxis Current Visit: No Status: Acute Assessment and plan: SCDs - Time Spent With Patient Total time spent is greater than 50% in coordination of care (as documented) at patient's floor/unit and/or counseling patient: - Subjective Interval history: Patient seen and examined at bedside. Patient sleeping arousals to verbal stimuli oriented to name only. No chest pain Dawit at this time. I did speak with patient's was at bedside. She is was concerned about patient going back to [facility]. Was concern around patient's care and requesting possibly discharged to another facility. Advised the protective services social worker will be in tomorrow to see patient as well as physical therapy verbalized understanding. - Constitutional Vitals: Temp Pulse Resp BP Pulse Ox 98.3 F 66 14 129/65 98 01/07/18 07:10 01/07/18 07:10 01/07/18 07:10 01/07/18 07:10 01/07/18 07:10 General appearance: Present: A&O X 1 - Head Head exam: Present: atraumatic, normocephalic - Eye Eye exam: Present: PERRL, conjuntiva pink, sclera anicteric Pupils: Present: PERRL - Neck Neck exam general surgery: Present: supple, trachea midline. Absent: lymphadenopathy - Respiratory Respiratory exam: Present: CTAB. Absent: accessory muscle use, rales, rhonchi, wheezes - Cardiovascular Cardiovascular exam: Present: RRR, +S1, +S2. Absent: diastolic murmur, gallop, rubs, systolic murmur - GI/Abdominal GI/Abdominal exam: Present: normal bowel sounds, soft, no peritoneal signs. Absent: distended, tenderness - Extremities Exam Extremities exam: Present: warm, radial pulses palpable and symmetrical. Absent : calf tenderness, cyanotic, pedal edema - Neurological Exam Neurological exam: Present: CN II-XII intact, oriented X3, no focal deficits. Absent: pronater drift, facial droop, speech deficit - Skin Skin exam: Present: dry, intact Internal Medicine: Result - Labs CBC & Chem 7: 01/07/18 08:22 01/07/18 08:22 Labs: Short CBC 01/07/18 Range/Units 08:22 WBC 9.1 (4.3-11.1) K/mcL Hgb 11.5 L (12.9-16.9) g/dL Hct 33.5 L (37.5-50.1) % Plt Count 216 (140-400) K/mcL Neutrophils # 5.2 (1.6-8.9) K/mcL BMP 01/07/18 08:22 Sodium 141 Potassium 4.1 Chloride 107 Carbon Dioxide 30 H BUN 12 Creatinine 0.65 L Glucose 121 H Calcium 9.5 - ABG Interpretation ABG results: PT/INR, D-dimer PT 11.8 Seconds (9.4-12.1) 01/06/18 02:38 - VTE Documentation of Mechanical Device: Intermittent pneumatic compression device Consult Discharge Plan - Plan [facility]errals: [facility] [Primary Care Provider] -
--- NOTE | 2018-01-07 12:19 | Event Note ---
Date of Encounter: 01/07/18 Time of Encounter: 12:18 - Cardiology Event Note Discussed and reviewed with , mildly elevated troponins in the setting of fall, UTI. REcent TTE with LVEF improved from previous. Cardiology will sign off and will follow in outpatient setting follow up set.
[2018-01-07] MEDS: cefTRIAXone 1,000 MG in Water for inj. (sterile) 20 ML 10 ML IVP SCH (17:29)
[2018-01-07] MEDS: Mirtazapine 15 MG TABLET GTUBE SCH (21:10)
[2018-01-07] MEDS: Insulin DETEMIR 100 UNIT/ML X5UNITS SQ SCH (21:11)
[2018-01-07] MEDS: Gabapentin 300 MG CAPSULE GTUBE SCH (21:11)
[2018-01-08 06:19] LABS: Basophils # 0.1 K/mcL (0.0-0.2); Basophils % 0.7 %; Eosinophils # 0.7 K/mcL (0.0-0.6); Eosinophils % 7.6 %; Hemoglobin 10.5 g/dL (12.9-16.9); Immature Granulocytes % 0.3 % (0-4); Lymphocytes # 2.4 K/mcL (0.6-4.6); Lymphocytes % 25.2 %; Mean Corpuscular HGB Conc 32.8 g/dL (31.6-35.5); Mean Corpuscular Hemoglobin 31.3 pg (28.0-33.3); Mean Corpuscular Volume 95.2 fL (83.0-100.0); Mean Platelet Volume 10.3 fL (9.4-12.4); Monocytes # 1.1 K/mcL (0.0-1.3); Monocytes % 11.4 %; Neutrophils # 5.3 K/mcL (1.6-8.9); Platelet Count 226 K/mcL (140-400); Red Blood Count 3.36 M/mcL (4.19-5.50); Red Cell Distribution Width 13.5 % (11.5-14.5); Segmented Neutrophils % 54.8 %
[2018-01-08 06:40] LABS: BUN/Creatinine Ratio 21 (6-26); Blood Urea Nitrogen 16 mg/dL (8-23); Calcium 9.5 mg/dL (8.6-10.3); Carbon Dioxide 26 mEq/L (23-29); Chloride 107 mEq/L (98-107); Glucose 135 mg/dL (70-105); Osmolality,Calculated 293 (280-300); Potassium 4.1 mEq/L (3.5-5.1); Sodium 140 mEq/L (136-145); eGFR For African Americans > 60 (> 60); eGFR For Non-African Americans > 60 (> 60)
[2018-01-08] MEDS: levETIRAcetam 500 MG/5 ML UDC GTUBE SCH ×2 (09:05→22:28)
[2018-01-08] MEDS: Lisinopril 20 MG TABLET GTUBE SCH (09:05)
[2018-01-08] MEDS: Multivit/Ca/Min/Fe/FA 1 TAB TABLET GTUBE SCH (09:05)
[2018-01-08] MEDS: Aspirin 81 MG TAB.CHEW GTUBE SCH (09:05)
[2018-01-08] MEDS: Isosorbide MONOnitrate (24 HR) 60 MG TAB.ER.24H PO SCH (09:05)
--- NOTE | 2018-01-08 11:54 | Event Note ---
Date of Encounter: 01/08/18 Time of Encounter: 11:51 Pt's requested surgery evaluate patient regarding replacing PEG d/t discoloration. Per 's report, the PEG is aprox 1 year old, functions without issues, but is "turned all dark colored." PEG functioning is grossly WNL. Discoloration is consistent with changes related to gastric contents. Replacing a fully functional PEG risk outweighs the benefit. Reviewed with pt's who is agreeable. No surgical consult needed.
--- NOTE | 2018-01-08 14:36 | Discharge Summary ---
<Edna Krueger - Last Filed: 01/08/18 14:32> - NOTES TO OUTPATIENT PROVIDER Notes to Outpatient Provider: UTI with mild leukocytosis culture growing Escherichia coli started on Rocephin and transitioned to Omnicef-pending sensitivity Orders not resulted at time of discharge: Pending orders 01/06/18 01:58 Bedside Spirometry Evaluation [EVAL] Routine Date of Encounter: 01/08/18 Time of Encounter: 14:32 - Discharge Diagnosis (1) Cardiac enzymes elevated Priority: Secondary Status: Acute (2) Hypertension Priority: Secondary Status: Chronic Qualifiers: Hypertension type: essential hypertension Qualified Code(s): I10 - Essential (primary) hypertension (3) Cardiomyopathy Priority: Secondary Status: Acute Qualifiers: Cardiomyopathy type: unspecified Qualified Code(s): I42.9 - Cardiomyopathy , unspecified (4) Atrial fibrillation Priority: Secondary Status: Chronic Qualifiers: Atrial fibrillation type: chronic Qualified Code(s): I48.2 - Chronic atrial fibrillation (5) Systolic CHF Priority: Secondary Status: Acute Qualifiers: Heart failure chronicity: chronic Qualified Code(s): I50.22 - Chronic systolic (congestive) heart failure (6) UTI (urinary tract infection) Priority: Primary Status: Acute Qualifiers: Urinary tract infection type: site unspecified Hematuria presence: without hematuria Qualified Code(s): N39.0 - Urinary tract infection, site not specified Code(s): N39.0 - Urinary tract infection, site not specified SNOMED Code(s): 57439992 (7) History of CVA (cerebrovascular accident) Priority: Secondary Status: Chronic (8) Seizure Priority: Secondary Status: Acute (9) Frequent falls Priority: Secondary Status: Acute Hospital course: Mr. 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 Patient was brought into emergency room today by EMS after experiencing a fall mcc while in his wheelchair. He proceeded to have a episode of multiple falls throughout the day. These falls were unwitnessed. Family was concerned and patient was brought in for further evaluation. CT of head and cervical lumbar spine pelvis and thoracic or with no acute findings. Troponin was slightly elevated urinalysis indicative of a UTI urine culture was sent patient was initiated on Rocephin and was given aspirin. Evaluated by cardiology-recommending follow-up as outpatient.. During admission patient family requesting that surgery evaluate PEG tube concerns about discolorations. Surgery did evaluate no need for replacement at this time fully functioning and patent discolorations secondary to gastric reflux. Urine culture preliminary did show Escherichia coli patient has been on Rocephin we will switch to Omnicef. Patient did have urinary retention with a postvoid residual of 400 replace. Patient will follow-up outpatient urology for urinary retention. Patient was also seen by speech therapy who recommended nectar thickened liquids. Patient's does not want patient returning back to the [facility] [place] and would like in transfer to a different facility. medical staff services manager was consulted. Discharge discussed with: patient - Time Spent with Patient Total time spent providing and/or coordinating discharge services: - Discharge Medications Prescriptions: Cefdinir [Omnicef] 300 mg PO BID 6 Days #12 capsule Gabapentin [Neurontin] 300 mg GTUBE HS 4 Days #4 capsule Home Medications: Allopurinol [Zyloprim 300 MG] 300 mg GTUBE DAILY 01/20/17 [History] Aspirin 81 mg GTUBE DAILY 01/20/17 [History] Gabapentin [Neurontin] 300 mg GTUBE HS 01/20/17 [History] Multivitamin [Multi-Day Vitamins] 1 tab GTUBE DAILY 01/20/17 [History] Simvastatin [Zocor] 20 mg GTUBE QPM 01/20/17 [History] Clopidogrel [Plavix] 75 mg PO DAILY #30 tablet 01/23/17 [Rx] Acetaminophen [Tylenol] 650 mg GTUBE TID PRN 08/06/17 [History] Carvedilol [Coreg] 12.5 mg GTUBE DAILY 08/06/17 [History] Insulin Glargine,Hum.rec.anlog [Lantus Solostar] 4 unit SQ HS 08/06/17 [History] Melatonin 6 mg GTUBE HS PRN 08/06/17 [History] Mirtazapine [Remeron] 15 mg PO HS 08/06/17 [History] Atropine 1% Opth Drops 2 drop SL Q2H 12/24/17 [History] LevETIRAcetam [Keppra] 500 mg PO BID #60 tablet 12/28/17 [Rx] Isosorbide MONOnitrate (24 HR) [Imdur] 60 mg PO DAILY tab.er.24h 01/08/18 [Rx] Lisinopril [Zestril] 10 mg GTUBE DAILY #0 01/08/18 [Rx] Cefdinir [Omnicef] 300 mg PO BID 6 Days #12 capsule 01/09/18 [Rx] Gabapentin [Neurontin] 300 mg GTUBE HS 4 Days #4 capsule 01/09/18 [Rx] Allergies/Adverse Reactions: 3 Allergy/AdvReac Type Severity Reaction Status Date / Time No Known Allergies Allergy Verified 12/24/17 15:16 Date of admission: 01/06/18 00:14 Primary care physician: [facility] Consults: 01/06/18 01:59 Consult to Sulfide Head Operator [CONS] Routine Reason for SW Consult: Discharge plan Consult to Speech Therapy [CONS] Routine Comment: Evaluate, develop and implement POC Reason for Consult: Slurred speech Call Completed: No 01/06/18 04:28 Consult to Cardiology [CONS] Routine Comment: Consulting Provider: Cardiology [facility] Reason for Consult: Trending of troponin Call Completed: No 01/08/18 09:56 Consult to Surgery [CONS] Routine Consulting Provider: [facility] Reason for Consult: PEG tube replacement Time Notified: 09:59 Call Completed: Yes Discharging clinician: Edna Krueger Anticipated date of discharge: 01/08/18 - Constitutional Vitals: Temp Pulse Resp BP Pulse Ox 97.6 F 64 18 92/53 92 01/08/18 11:21 01/08/18 11:21 01/08/18 11:21 01/08/18 11:21 01/08/18 11:21 General appearance: Present: A&O X 1 Exam: groggy arouses to verbal stimuli - Head Head exam: Present: atraumatic, normocephalic - Eye Eye exam: Present: PERRL, conjuntiva pink, sclera anicteric Pupils: Present: PERRL - Neck Neck exam general surgery: Present: supple, trachea midline. Absent: lymphadenopathy - Respiratory Respiratory exam: Present: CTAB. Absent: accessory muscle use, rales, rhonchi, wheezes - Cardiovascular Cardiovascular exam: Present: RRR, +S1, +S2. Absent: diastolic murmur, gallop, rubs, systolic murmur - GI/Abdominal GI/Abdominal exam: Present: normal bowel sounds, soft, no peritoneal signs. Absent: distended, tenderness - Extremities Exam Extremities exam: Present: warm, radial pulses palpable and symmetrical. Absent : calf tenderness, cyanotic, pedal edema - Neurological Exam Neurological exam: Present: CN II-XII intact, oriented X3, no focal deficits. Absent: pronater drift, facial droop, speech deficit - Skin Skin exam: Present: dry, intact - Patient Status Disposition: Transfer SNF Condition: Good Functional capacity at discharge: wheelchair bound Overall status at discharge: patient is back to baseline - Discharge Instructions Follow Up With: U[facility] [Provider Group] - 01/15/18 9:30 am [facility]PCP [Primary Care Provider] - Additional Instructions: Follow up with ECF physician in 2-3 days after discharge. Follow up on final hospital urine culture and sensitivities, and adjust antibiotic as necessary. Follow up with cardiology and urology as directed. - Diet and Activity Activity: increase activity as tolerated Diet: other - VTE Documentation of Mechanical Device: Intermittent pneumatic compression device <Sushant Dumont - Last Filed: 01/09/18 08:19> - NOTES TO OUTPATIENT PROVIDER Notes to Outpatient Provider: Follow up with ECF physician in 2-3 days after discharge. Follow up on final hospital urine culture and sensitivities, and adjust antibiotic as necessary. Follow up with cardiology and urology as directed. Orders not resulted at time of discharge: Pending orders 01/06/18 01:58 Bedside Spirometry Evaluation [EVAL] Routine Date of Encounter: 01/09/18 Time of Encounter: 08:02 - Discharge Diagnosis (1) UTI (urinary tract infection) Priority: Primary Status: Acute Qualifiers: Urinary tract infection type: site unspecified Hematuria presence: without hematuria Qualified Code(s): N39.0 - Urinary tract infection, site not specified Code(s): N39.0 - Urinary tract infection, site not specified SNOMED Code(s): 11844137 (2) Frequent falls Priority: Secondary Status: Acute (3) Cardiac enzymes elevated Priority: Secondary Status: Acute (4) Hypertension Priority: Secondary Status: Chronic Qualifiers: Hypertension type: essential hypertension Qualified Code(s): I10 - Essential (primary) hypertension (5) Cardiomyopathy Priority: Secondary Status: Chronic Qualifiers: Cardiomyopathy type: unspecified Qualified Code(s): I42.9 - Cardiomyopathy , unspecified (6) Atrial fibrillation Priority: Secondary Status: Chronic Qualifiers: Atrial fibrillation type: chronic Qualified Code(s): I48.2 - Chronic atrial fibrillation (7) Systolic CHF Priority: Secondary Status: Chronic Qualifiers: Heart failure chronicity: chronic Qualified Code(s): I50.22 - Chronic systolic (congestive) heart failure (8) History of CVA (cerebrovascular accident) Priority: Secondary Status: Chronic (9) Seizure Priority: Secondary Status: Chronic Hospital course: toll test worker contacted [facility] and they were unable to accept patient due to patient having a small amount of skilled days left, and patient in need of longer-term care. It was suggested that patient return to [facility], and family can work on applying for Medicaid for longer-term care and transfer to [facility] after that. Nurse called family today and advised of above. Patient will return to [facility]. He will follow up with F physician in 2-3 days after discharge. They can follow up on final hospital urine culture and sensitivities, and adjust antibiotic as necessary. He will follow up with cardiology and urology as directed. Discharge discussed with: patient, family, nurse - Time Spent with Patient Total time spent providing and/or coordinating discharge services: Greater than 30 minutes Date of admission: 01/06/18 00:14 Primary care physician: PCP [facility] Consults: 01/06/18 01:59 Consult to Sulfide Head Operator [CONS] Routine Reason for SW Consult: Discharge plan Consult to Speech Therapy [CONS] Routine Comment: Evaluate, develop and implement POC Reason for Consult: Slurred speech Call Completed: No 01/06/18 04:28 Consult to Cardiology [CONS] Routine Comment: Consulting Provider: Cardiology Ruth Reason for Consult: Trending of troponin Call Completed: No 01/08/18 09:56 Consult to Surgery [CONS] Routine Consulting Provider: [facility] Reason for Consult: PEG tube replacement Time Notified: 09:59 Call Completed: Yes Discharging clinician: Sushant Dumont Anticipated date of discharge: 01/09/18 - Constitutional Vitals: Temp Pulse Resp BP Pulse Ox 98.2 F 67 14 152/78 94 01/09/18 06:55 01/09/18 06:55 01/09/18 06:55 01/09/18 06:55 01/09/18 06:55 General appearance: Present: cooperative, A&O X 1, pleasant, no acute distress Exam: Resting peacefully in bed, easy to arouse and minimally conversive - Respiratory Respiratory exam: Present: CTAB. Absent: accessory muscle use, rales, rhonchi, wheezes Additional comments: Normal WOB - Cardiovascular Cardiovascular exam: Present: RRR, +S1, +S2. Absent: diastolic murmur, gallop, rubs, systolic murmur Additional comments: No BLE edema - GI/Abdominal GI/Abdominal exam: Present: normal bowel sounds, soft. Absent: distended, hepatomegaly, mass, splenomegaly, tenderness - Psychiatric Psychiatric exam: Present: normal affect, normal mood. Absent: agitated, anxious, depressed - Skin Skin exam: Present: dry, intact, warm. Absent: cyanosis, rash - Patient Status Overall status at discharge: patient is progressing back to baseline - Diet and Activity Activity: resume usual activities as tolerated Diet: diabetic diet, low fat, low cholesterol, low salt diet, other (Cardiac Diet, [place] Thickened Liquids) - VTE Documentation of Mechanical Device: Intermittent pneumatic compression device
--- NOTE | 2018-01-08 14:52 | Electrocardiograph Report ---
[address] [place], [place] [address] Test Date: 2018-01-05 Pat Name: Lasha Drew Department: 104 Room: 3B43 Gender: M Hospital Chief Executive Officer: [facility] : 1930 Requested By: [id number] Order Number: [id number] Reading MD: Alejandro Anderson Measurements Intervals [place] Rate: 71 P: 70 WV: 183 QRS: -37 QRSD: 110 T: 169 QT: 425 QTc: 448 Interpretive Statements SINUS RHYTHM MARKED LEFT AXIS DEVIATION Electronically Signed On 01-08-2018 14:50:41 EDT by Alejandro Anderson
--- NOTE | 2018-01-08 16:10 | Internal Med Progress Note ---
Date of Encounter: 01/08/18 Time of Encounter: 16:08 - Assessment and plan (1) Cardiac enzymes elevated Current Visit: No Status: Acute Assessment and plan: No active chest pain. Trending down troponin .07,.10,.09 cardilogy consulted- suspect r/t fall infection Increased Imdur. Advised to follow up with cardiology as outpatient (2) Hypertension Current Visit: No Status: Chronic Assessment and plan: High blood pressure on presentation. ystolic 90-100. Imdur was increased per cardiology. We will decrease lisinopril and continue to monitor Qualifiers: Hypertension type: essential hypertension Qualified Code(s): I10 - Essential (primary) hypertension (3) Cardiomyopathy Current Visit: No Status: Acute Assessment and plan: Ischemic. Does not appear to be fluid overloaded this time continue BB FRANSISCO monitor I/O daily weights Qualifiers: Cardiomyopathy type: unspecified Qualified Code(s): I42.9 - Cardiomyopathy , unspecified (4) Atrial fibrillation Current Visit: No Status: Chronic Assessment and plan: Rate is controlled. Not on any anticoagulation due to frequent falls Continue with beta joseph Continuous cardiac monitoring Qualifiers: Atrial fibrillation type: chronic Qualified Code(s): I48.2 - Chronic atrial fibrillation (5) Systolic CHF Current Visit: No Status: Acute Assessment and plan: Compensated. echo 12/25/2017 Impressions: LVEF 45%. LV systolic dysfunction appears global although not all LV wall segments are well visualized. Mild left ventricular diastolic dysfunction. Increased LV wall thickness - measurements not well obtained. Normal right ventricular structure and function. Mild aortic stenosis. No pulmonary hypertension. Suboptimal contrast injection images to detect PFO Patient does not take diuretic. Appears stable at this time Continue strict I&O's. And daily weights Continue home medicine Qualifiers: Heart failure chronicity: chronic Qualified Code(s): I50.22 - Chronic systolic (congestive) heart failure (6) UTI (urinary tract infection) Current Visit: Yes Status: Acute Assessment and plan: Mild leukocytosis with abnormal urine analysis. Culture growing ecoli-awaiting sensitivity Cont rocephin Qualifiers: Urinary tract infection type: site unspecified Hematuria presence: without hematuria Qualified Code(s): N39.0 - Urinary tract infection, site not specified Code(s): N39.0 - Urinary tract infection, site not specified SNOMED Code(s): 88422072 (7) History of CVA (cerebrovascular accident) Current Visit: No Status: Chronic Assessment and plan: residual right-sided weakness, dysarthria. Patient has PEG tube for last 1 year-and is patent and flushes easily. The tube itself is discolored however the surrounding skin is intact without any redness or drainage family requested evaluation by surgeon whether it needs to get replaced. Patient use pureed diet but will consult speech therapist's. He did pass bedside swallow PEG tube use intermittently for supplementation Surgery did see the patient no pEG tube replacement at this time (8) Seizure Current Visit: No Status: Acute Assessment and plan: Stable. No active seizure. Continue home medicine Seizure precautions (9) Frequent falls Current Visit: Yes Status: Acute Assessment and plan: High risk for fall due to underlying CVA with residual weakness. Patient is wheelchair bound. Acute infection could be contributing worsening of fall. PT/ OT and social insurance analyst consulted. Fall precautions - Time Spent With Patient Total time spent is greater than 50% in coordination of care (as documented) at patient's floor/unit and/or counseling patient: - Subjective Interval history: Patient seen and examined at bedside. Patient sleeping arousals to verbal stimuli oriented to name only. No chest pain voice at this time. I did speak with patient's was at bedside. Patient's is at bedside requesting to be evaluated for PEG tube replacement. Did speak with surgery who evaluated patient at bedside recommending against replacement this time since it is patent and functioning. also also requesting patient be transferred to a different extended-care facility. computing services director contacting signature and awaiting authorization at this time. - Constitutional Vitals: Temp Pulse Resp BP Pulse Ox 98.5 F 58 16 111/63 96 01/08/18 15:52 01/08/18 15:52 01/08/18 15:52 01/08/18 15:52 01/08/18 15:52 General appearance: Present: A&O X 1 Exam: atient is sleepy he arouses to verbal stimuli. - Head Head exam: Present: atraumatic, normocephalic - Eye Eye exam: Present: PERRL, conjuntiva pink, sclera anicteric Pupils: Present: PERRL - Neck Neck exam general surgery: Present: supple, trachea midline. Absent: lymphadenopathy - Respiratory Respiratory exam: Present: CTAB. Absent: accessory muscle use, rales, rhonchi, wheezes - Cardiovascular Cardiovascular exam: Present: RRR, +S1, +S2. Absent: diastolic murmur, gallop, rubs, systolic murmur - GI/Abdominal GI/Abdominal exam: Present: normal bowel sounds, soft, no peritoneal signs. Absent: distended, tenderness - Extremities Exam Extremities exam: Present: warm, radial pulses palpable and symmetrical. Absent : calf tenderness, cyanotic, pedal edema - Neurological Exam Neurological exam: Present: CN II-XII intact, oriented X3, no focal deficits. Absent: pronater drift, facial droop, speech deficit - Skin Skin exam: Present: dry, intact Internal Medicine: Result - Labs CBC & Chem 7: 01/08/18 05:31 01/08/18 05:31 Labs: Short CBC 01/08/18 Range/Units 05:31 WBC 9.6 (4.3-11.1) K/mcL Hgb 10.5 L (12.9-16.9) g/dL Hct 32.0 L (37.5-50.1) % Plt Count 226 (140-400) K/mcL Neutrophils # 5.3 (1.6-8.9) K/mcL BMP 01/08/18 05:31 Sodium 140 Potassium 4.1 Chloride 107 Carbon Dioxide 26 BUN 16 Creatinine 0.76 Glucose 135 H Calcium 9.5 - ABG Interpretation ABG results: PT/INR, D-dimer PT 11.8 Seconds (9.4-12.1) 01/06/18 02:38 - VTE Documentation of Mechanical Device: Intermittent pneumatic compression device Consult Discharge Plan - Plan Referrals: Urology [facility] [Provider Group] - 01/15/18 9:30 am [facility],PCP [Primary Care Provider] - Prescriptions: Cefdinir [Omnicef] 300 mg PO BID #14 capsule
[2018-01-08] MEDS: cefTRIAXone 1,000 MG in Water for inj. (sterile) 20 ML 10 ML IVP SCH (17:11)
[2018-01-08] MEDS: Insulin DETEMIR 100 UNIT/ML X5UNITS SQ SCH (22:28)
[2018-01-08] MEDS: Gabapentin 300 MG CAPSULE GTUBE SCH (22:28)
[2018-01-08] MEDS: Mirtazapine 15 MG TABLET GTUBE SCH (22:28)
[2018-01-09 04:49] LABS: Basophils # 0.1 K/mcL (0.0-0.2); Basophils % 0.8 %; Eosinophils # 0.7 K/mcL (0.0-0.6); Eosinophils % 7.8 %; Hematocrit 32.9 % (37.5-50.1); Hemoglobin 10.8 g/dL (12.9-16.9); Immature Granulocytes % 0.3 % (0-4); Lymphocytes # 2.5 K/mcL (0.6-4.6); Lymphocytes % 26.7 %; Mean Corpuscular HGB Conc 32.8 g/dL (31.6-35.5); Mean Corpuscular Hemoglobin 31.7 pg (28.0-33.3); Mean Corpuscular Volume 96.5 fL (83.0-100.0); Mean Platelet Volume 10.1 fL (9.4-12.4); Monocytes # 0.9 K/mcL (0.0-1.3); Monocytes % 10.1 %; Platelet Count 225 K/mcL (140-400); Red Blood Count 3.41 M/mcL (4.19-5.50); Red Cell Distribution Width 13.4 % (11.5-14.5); Segmented Neutrophils % 54.3 %
[2018-01-09 05:16] LABS: BUN/Creatinine Ratio 22 (6-26); Blood Urea Nitrogen 16 mg/dL (8-23); Calcium 9.7 mg/dL (8.6-10.3); Carbon Dioxide 28 mEq/L (23-29); Chloride 108 mEq/L (98-107); Glucose 113 mg/dL (70-105); Osmolality,Calculated 296 (280-300); Potassium 4.1 mEq/L (3.5-5.1); Sodium 142 mEq/L (136-145); eGFR For African Americans > 60 (> 60); eGFR For Non-African Americans > 60 (> 60)
--- NOTE | 2018-01-09 08:22 | Physician Discharge Referral ---
ExtendedCare Referral Info Transfer To: [facility] Provider in Charge after Transfer: Other (ECF Physician) Institutional Level of Care: Skilled - Diagnosis (1) UTI (urinary tract infection) Priority: Primary Status: Acute (2) Frequent falls Priority: Secondary Status: Acute (3) Cardiac enzymes elevated Priority: Secondary Status: Acute (4) Hypertension Priority: Secondary Status: Chronic (5) Cardiomyopathy Priority: Secondary Status: Chronic (6) Atrial fibrillation Priority: Secondary Status: Chronic (7) Systolic CHF Priority: Secondary Status: Chronic (8) History of CVA (cerebrovascular accident) Priority: Secondary Status: Chronic (9) Seizure Priority: Secondary Status: Chronic Expected Duration of Placement: Indefinitely Prognosis: Fair Aware of Diagnosis: Patient, Family Aware of Prognosis: Patient, Family - Transfer Medications Prescriptions: Cefdinir [Omnicef] 300 mg PO BID 6 Days #12 capsule Gabapentin [Neurontin] 300 mg GTUBE HS 4 Days #4 capsule Home Medications: Allopurinol [Zyloprim 300 MG] 300 mg GTUBE DAILY 01/20/17 [History] Aspirin 81 mg GTUBE DAILY 01/20/17 [History] Gabapentin [Neurontin] 300 mg GTUBE HS 01/20/17 [History] Multivitamin [Multi-Day Vitamins] 1 tab GTUBE DAILY 01/20/17 [History] Simvastatin [Zocor] 20 mg GTUBE QPM 01/20/17 [History] Clopidogrel [Plavix] 75 mg PO DAILY #30 tablet 01/23/17 [Rx] Acetaminophen [Tylenol] 650 mg GTUBE TID PRN 08/06/17 [History] Carvedilol [Coreg] 12.5 mg GTUBE DAILY 08/06/17 [History] Insulin Glargine,Hum.rec.anlog [Lantus Solostar] 4 unit SQ HS 08/06/17 [History] Melatonin 6 mg GTUBE HS PRN 08/06/17 [History] Mirtazapine [Remeron] 15 mg PO HS 08/06/17 [History] Atropine 1% Opth Drops 2 drop SL Q2H 12/24/17 [History] LevETIRAcetam [Keppra] 500 mg PO BID #60 tablet 12/28/17 [Rx] Isosorbide MONOnitrate (24 HR) [Imdur] 60 mg PO DAILY tab.er.24h 01/08/18 [Rx] Lisinopril [Zestril] 10 mg GTUBE DAILY #0 01/08/18 [Rx] Cefdinir [Omnicef] 300 mg PO BID 6 Days #12 capsule 01/09/18 [Rx] Gabapentin [Neurontin] 300 mg GTUBE HS 4 Days #4 capsule 01/09/18 [Rx] Allergies/Adverse Reactions: 3 Allergy/AdvReac Type Severity Reaction Status Date / Time No Known Allergies Allergy Verified 12/24/17 15:16 - Respiratory Orders Smoking Cessation: Smoking cessation has been advised. For more information, call the [place] Tobacco Quit Line at 2-782-USPG-NOW. - Advance Directives Code Status: DNR-Arrest (DNR-Comfort Care-Arrest) - Mobility Orders Other (Per physical therapy) - Rehabiliation Orders Rehab Potential: Fair Rehab Orders: Evaluation for Physical Therapy, Evaluation for Occupational Therapy - Diet Orders No Added Salt (TELMA), No Concentrated Sweets, Cardiac ([place] Thickened Liquids) CERTIFICATION: I certify that the transfer of the above named patient to an Extended Care Facility is necessary for the continuing treatment of the diagnosis listed. The above information is true and accurate reflection of patient's current condition. Confidential - Redisclosure prohibited without a patient's written consent.
[2018-01-09] MEDS: Aspirin 81 MG TAB.CHEW GTUBE SCH (08:51)
[2018-01-09] MEDS: Lisinopril 20 MG TABLET GTUBE SCH (08:51)
[2018-01-09] MEDS: levETIRAcetam 500 MG/5 ML UDC GTUBE SCH ×2 (08:51→21:20)
[2018-01-09] MEDS: Multivit/Ca/Min/Fe/FA 1 TAB TABLET GTUBE SCH (08:51)
[2018-01-09] MEDS: Isosorbide MONOnitrate (24 HR) 60 MG TAB.ER.24H PO SCH (08:51)
[2018-01-09] MEDS ORDERED: 0.9 % Sodium Chloride 500 ML IVC ONE (09:41)
[2018-01-09] MEDS ORDERED: 0.9 % Sodium Chloride 500 ML ONE (09:42)
--- NOTE | 2018-01-09 10:10 | Event Note ---
Date of Encounter: 01/09/18 Time of Encounter: 10:01 I was called by nursing staff at 9:30 that patient was difficult to arouse with worsening right facial droop from baseline. At the time of my arrival, patient was somnolent with right lip droop with drooling, but arousable to strong sternal rub. This is in contrast to when I examined him this AM, when he had no visible facial droop and easy to arouse with verbal command and light touch. Due to concern for new stroke, STAT CT head was ordered. was in room, and she states that he is usually very somnolent at baseline, but this extreme somnolence was new, and right facial droop was worse than baseline. He has history of multiple strokes, the most recent few weeks ago. He has right-sided residual deficits from these strokes. BP was manual 90s/70s, so 500 cc bolus was ordered. Bolus was run at 250 cc/hr due to history of CHF and concern for fluid overload. I advised nursing staff to monitor BP closely and keep me updated. Other vitals were WNL. After about 15 minutes, patient started to become a little more alert. He started opening his eyes spontaneously, and was able to be aroused with light touch. At this time, he is being transported to CT scan. I advised nursing staff to recheck vitals when he returns, and let me know of BP. CXR and troponin are pending. I advised nursing staff to let me know of results. I spoke with , and she wants to speak with SW about placement at new ECF. I advised nursing staff to facilitate this. We will hold off on discharge from this AM due to change in patient's condition, and monitor him throughout today. At this time, nursing staff states that they will be able to monitor him, and due to improvement of his condition to backroom associate to his baseline, we will defer on transfer to step down unit. If condition worsens in any way, I have low threshold to transfer him to step down unit. I confirmed with that code states is DNR-CCA. Patient condition is guarded, and we will monitor closely. I spent 40 minutes of critical care time taking care of this patient.
[2018-01-09] MEDS: cefTRIAXone 1,000 MG in Water for inj. (sterile) 20 ML 10 ML IVP SCH (17:21)
[2018-01-09] MEDS: Insulin DETEMIR 100 UNIT/ML X5UNITS SQ SCH (21:20)
[2018-01-09] MEDS: Gabapentin 300 MG CAPSULE GTUBE SCH (21:20)
[2018-01-09] MEDS: Mirtazapine 15 MG TABLET GTUBE SCH (21:20)
--- NOTE | 2018-01-10 07:32 | Internal Med Progress Note ---
Date of Encounter: 01/10/18 Time of Encounter: 07:30 - Assessment and plan (1) UTI (urinary tract infection) Current Visit: Yes Status: Acute Assessment and plan: Will complete full course of omnicef after discharge. Plan for discharge to [facility] today. Qualifiers: Urinary tract infection type: site unspecified Hematuria presence: without hematuria Qualified Code(s): N39.0 - Urinary tract infection, site not specified Code(s): N39.0 - Urinary tract infection, site not specified SNOMED Code(s): 03852459 (2) Frequent falls Current Visit: Yes Status: Acute Assessment and plan: PT/OT after discharge. (3) Cardiac enzymes elevated Current Visit: Yes Status: Acute Assessment and plan: Keep follow up with cardiology as outpatient. (4) Hypertension Current Visit: Yes Status: Chronic Assessment and plan: BP now normalized. Restart home medications at discharge. Qualifiers: Hypertension type: essential hypertension Qualified Code(s): I10 - Essential (primary) hypertension (5) Cardiomyopathy Current Visit: Yes Status: Chronic Assessment and plan: Keep outpatient cardiology follow up. Qualifiers: Cardiomyopathy type: unspecified Qualified Code(s): I42.9 - Cardiomyopathy , unspecified (6) Atrial fibrillation Current Visit: Yes Status: Chronic Assessment and plan: Continue home medications. Keep outpatient cardiology follow up. Qualifiers: Atrial fibrillation type: chronic Qualified Code(s): I48.2 - Chronic atrial fibrillation (7) Systolic CHF Current Visit: No Status: Chronic Assessment and plan: Continue home medications. Keep outpatient cardiology follow up. Qualifiers: Heart failure chronicity: chronic Qualified Code(s): I50.22 - Chronic systolic (congestive) heart failure (8) History of CVA (cerebrovascular accident) Current Visit: No Status: Chronic Assessment and plan: No new infarct on CT head yesterday. Continue home medications. (9) Seizure Current Visit: No Status: Chronic Assessment and plan: Continue home medications. - Time Spent With Patient Total time spent is greater than 50% in coordination of care (as documented) at patient's floor/unit and/or counseling patient: less than 15 minutes - Subjective Interval history: Patient had no acute events overnight. He is doing well this morning. He is easily arousible and converses appropriately, though some dysarthria, which is chronic. He is in good spirits. Nursing staff states that he did not void after holcomb catheter was pulled last night, but only had 100 ml and 400 ml of residual. He was straight cathed once. He has no complaints at this time. - Constitutional Vitals: Temp Pulse Resp BP Pulse Ox 97.9 F 58 14 130/69 95 01/10/18 02:28 01/10/18 02:28 01/10/18 02:28 01/10/18 02:28 01/10/18 02:28 General appearance: Present: cooperative, A&O X 1, pleasant, no acute distress - Respiratory Respiratory exam: Present: CTAB. Absent: accessory muscle use, rales, rhonchi, wheezes Additional comments: Normal WOB - Cardiovascular Cardiovascular exam: Present: RRR, +S1, +S2. Absent: diastolic murmur, gallop, rubs, systolic murmur Additional comments: No BLE edema - GI/Abdominal GI/Abdominal exam: Present: normal bowel sounds, soft. Absent: distended, hepatomegaly, mass, splenomegaly, tenderness - Psychiatric Psychiatric exam: Present: normal affect, normal mood. Absent: agitated, anxious, depressed - Skin Skin exam: Present: dry, intact, warm. Absent: cyanosis, rash Internal Medicine: Result - Labs CBC & Chem 7: 01/09/18 04:21 01/09/18 04:21 Labs: Cardiac Enzymes 01/09/18 Range/Units 10:20 Troponin I 0.06 H* (< 0.04) ng/mL - ABG Interpretation ABG results: PT/INR, D-dimer PT 11.8 Seconds (9.4-12.1) 01/06/18 02:38 - VTE Documentation of Mechanical Device: Intermittent pneumatic compression device Consult Discharge Plan - Plan Additional Instructions: Follow up with ECF physician in 2-3 days after discharge. Follow up on final hospital urine culture and sensitivities, and adjust antibiotic as necessary. Follow up with cardiology and urology as directed. Referrals: [facility] [Provider Group] - 01/15/18 9:30 am [facility]Primary Care Provider] -
--- NOTE | 2018-01-10 07:47 | Physician Discharge Referral ---
ExtendedCare Referral Info Transfer To: [facility] Provider in Charge after Transfer: Other (F Physician) Institutional Level of Care: Skilled - Diagnosis (1) UTI (urinary tract infection) Priority: Primary Status: Acute (2) Frequent falls Priority: Secondary Status: Acute (3) Cardiac enzymes elevated Priority: Secondary Status: Acute (4) Hypertension Priority: Secondary Status: Chronic (5) Cardiomyopathy Priority: Secondary Status: Chronic (6) Atrial fibrillation Priority: Secondary Status: Chronic (7) Systolic CHF Priority: Secondary Status: Chronic (8) History of CVA (cerebrovascular accident) Priority: Secondary Status: Chronic (9) Seizure Priority: Secondary Status: Chronic Prognosis: Fair Aware of Diagnosis: Patient, Family Aware of Prognosis: Patient, Family - Transfer Medications Home Medications: Allopurinol [Zyloprim 300 MG] 300 mg GTUBE DAILY 01/20/17 [History] Aspirin 81 mg GTUBE DAILY 01/20/17 [History] Gabapentin [Neurontin] 300 mg GTUBE HS 01/20/17 [History] Multivitamin [Multi-Day Vitamins] 1 tab GTUBE DAILY 01/20/17 [History] Simvastatin [Zocor] 20 mg GTUBE QPM 01/20/17 [History] Clopidogrel [Plavix] 75 mg PO DAILY #30 tablet 01/23/17 [Rx] Acetaminophen [Tylenol] 650 mg GTUBE TID PRN 08/06/17 [History] Carvedilol [Coreg] 12.5 mg GTUBE DAILY 08/06/17 [History] Insulin Glargine,Hum.rec.anlog [Lantus Solostar] 4 unit SQ HS 08/06/17 [History] Melatonin 6 mg GTUBE HS PRN 08/06/17 [History] Mirtazapine [Remeron] 15 mg PO HS 08/06/17 [History] Atropine 1% Opth Drops 2 drop SL Q2H 12/24/17 [History] LevETIRAcetam [Keppra] 500 mg PO BID #60 tablet 12/28/17 [Rx] Isosorbide MONOnitrate (24 HR) [Imdur] 60 mg PO DAILY tab.er.24h 01/08/18 [Rx] Lisinopril [Zestril] 10 mg GTUBE DAILY #0 01/08/18 [Rx] Cefdinir [Omnicef] 300 mg PO BID 6 Days #12 capsule 01/09/18 [Rx] Gabapentin [Neurontin] 300 mg GTUBE HS 4 Days #4 capsule 01/09/18 [Rx] Allergies/Adverse Reactions: 3 Allergy/AdvReac Type Severity Reaction Status Date / Time No Known Allergies Allergy Verified 12/24/17 15:16 - Respiratory Orders None Smoking Cessation: Smoking cessation has been advised. For more information, call the [employer] Tobacco Quit Line at 5-010-NZZN-NOW. - Advance Directives Code Status: DNR-Arrest - Mobility Orders Other (Per physical therapy) - Rehabiliation Orders Rehab Potential: Fair Rehab Orders: Evaluation for Physical Therapy, Evaluation for Occupational Therapy, Evaluation for Speech Therapy - Diet Orders No Added Salt (TELMA), Cardiac ([place] Thickened Diet, Mechanically Altered Diet Ground Meat) CERTIFICATION: I certify that the transfer of the above named patient to an Extended Care Facility is necessary for the continuing treatment of the diagnosis listed. The above information is true and accurate reflection of patient's current condition. Confidential - Redisclosure prohibited without a patient's written consent.
[2018-01-10 07:59] VITALS: BP 150/78
[2018-01-10] MEDS: Aspirin 81 MG TAB.CHEW GTUBE SCH (07:59)
[2018-01-10] MEDS: Lisinopril 20 MG TABLET GTUBE SCH (07:59)
[2018-01-10] MEDS: Multivit/Ca/Min/Fe/FA 1 TAB TABLET GTUBE SCH (07:59)
[2018-01-10] MEDS: Isosorbide MONOnitrate (24 HR) 60 MG TAB.ER.24H PO SCH (07:59)
[2018-01-10] MEDS: levETIRAcetam 500 MG/5 ML UDC GTUBE SCH (08:02)
== END 2018-01-10 10:08 | DRG 690 ==
LOC: EMEROO 21:03 → 3BNU 21:03
PROVIDERS: ADMIT General Practice; ATTEND General Practice